=== PATIENT | male | born 1955 | race Caucasian/White ===

== ENCOUNTER 2016-12-04 19:33 | Inpatient (IN) | payer OTHER ==
[2016-12-04 21:33] VITALS: BMI 22.0
--- NOTE | 2016-12-04 22:20 | HP ---
CIWA Score - CIWA Score Nausea/Vomitin-Mild Nausea/No Vomiting Muscle Tremors: 4-Moderate,w/Arms Extend Anxiety: 4-Mod. Anxious/Guarded Agitation: 4-Moderately Restless Paroxysmal Sweats: 1-Minimal Palms Moist Orientation: 0-Oriented Tacttile Disturbances: 0-None Auditory Disturbances: 0-None Visual Disturbances: 0-None Headache: 0-None Present CIWA-Ar Total Score: 14 Admission ROS BHS - HPI Chief Complaint: withdrawal sx Allergies/Adverse Reactions: Allergies Allergy/AdvReac Type Severity Reaction Status Date / Time No Known Allergies Allergy Verified 04/01/16 19:27 History of Present Illness: 61 years old male with long history of alcohol cocaine marijuana nicotine dependence denies medical issue has schizophrenia is admitted to detox Exam Limitations: No Limitations - Ebola screening Have you traveled outside of the country in the last 21 days: No (N) Have you had contact with anyone from an Ebola affected area: No Have you been sick,other than usual withdrawal symptoms: No Do you have a fever: No - Review of Systems Constitutional: Chills, Loss of Appetite, Changes in sleep, Unintentional Wgt. Loss, Unexplained wgt Loss EENT: reports: Blurred Vision (last eye glasses), Dental Problems (upper and lower denture at home) Respiratory: reports: Productive cough (whiteish) Cardiac: reports: No Symptoms Reported GI: reports: Nausea, Poor Fluid Intake, Abdominal cramping : reports: No Symptoms Reported Musculoskeletal: reports: No Symptoms Reported Integumentary: reports: No Symptoms Reported Neuro: reports: Tremors Endocrine: reports: No Symptoms Reported Hematology: reports: No Symptoms Reported Psychiatric: reports: Judgement Intact, Anxious, Depressed Other Systems: Reviewed and Negative Patient History - Patient Medical History Hx Anemia: No Hx Asthma: No Hx Chronic Obstructive Pulmonary Disease (COPD): No Hx Cancer: No Hx Cardiac Disorders: No Hx Congestive Heart Failure: No Hx Hypertension: No Hx Hypercholesterolemia: No Hx Pacemaker: No HX Cerebrovascular Accident: No Hx Seizures: No Hx Dementia: No Hx Diabetes: No Hx Gastrointestinal Disorders: No Hx Liver Disease: No Hx Genitourinary Disorders: No Hx Sexually Transmitted Disorders: No Hx Renal Disease (ESRD): No Hx Thyroid Disease: No Hx Human Immunodeficiency Virus (HIV): No (denies) Hx Hepatitis C: No Hx Depression: No Hx Suicide Attempt: No Hx Bipolar Disorder: No Hx Schizophrenia: Yes - Patient Surgical History Past Surgical History: Yes Hx Neurologic Surgery: No Hx Cataract Extraction: No Hx Cardiac Surgery: No Hx Lung Surgery: No Hx Breast Surgery: No Hx Breast Biopsy: No Hx Abdominal Surgery: No Hx Appendectomy: No Hx Cholecystectomy: No Hx Genitourinary Surgery: No Hx Orthopedic Surgery: No Other Surgical History: removal of lipoma of right chest wall at [facility] 2010 Anesthesia Reaction: No - PPD History Previous Implant?: Yes Documented Results: Negative w/proof Implanted On Prior [facility] Admission?: Yes Date: 12/23/15 Results: 0MM PPD to be Administered?: Yes - Smoking Cessation Smoking history: Current every day smoker Have you smoked in the past 12 months: Yes Aproximately how many cigarettes per day: 20 Cigars Per Day: 0 Hx Chewing Tobacco Use: No Initiated information on smoking cessation: Yes 'Breaking Loose' booklet given: 12/04/16 - Substance & Tx. History Hx Alcohol Use: Yes Hx Substance Use: Yes Substance Use Type: Alcohol, Cocaine, Marijuana Hx Substance Use Treatment: Yes - Substances Abused Alcohol Route: Oral Frequency: Daily Amount used: 12oz 6pack beers Age of first use: 12 Date of Last Use: 12/03/16 Cocaine Route: Smoking Frequency: Daily Amount used: 200$ Age of first use: 33 Date of Last Use: 12/03/16 Marijuana/Hashish Route: Smoking Frequency: Daily Amount used: 10 joints Age of first use: 19 Date of Last Use: 12/03/16 Family Disease History - Family Disease History Family Disease History: Diabetes: Brother, Heart Disease: Mother ([place] ), [place]: Father () Admission Physical Exam S - Vital Signs Vital Signs: Vital Signs - 24 hr 12/04/16 21:32 Temperature 96.8 F L Pulse Rate 71 Respiratory 20 Rate Blood Pressure 115/71 - Physical General Appearance: Yes: Appropriately Dressed, Mild Distress, Thin, Tremorous, Irritable, Sweating, Anxious HEENTM: Yes: Hearing grossly Normal, Normal ENT Inspection, Normocephalic, Normal Voice Respiratory: Yes: Chest Non-Tender, Lungs Clear, Normal Breath Sounds, No Respiratory Distress, No Accessory Muscle Use Neck: Yes: Supple, Trachea in good position Breast: Yes: Breasts Symetrical Cardiology: Yes: Regular Rhythm, Regular Rate, S1, S2 Abdominal: Yes: Normal Bowel Sounds, Non Tender, Soft Genitourinary: Yes: Within Normal Limits Back: Yes: Normal Inspection Musculoskeletal: Yes: full range of Motion, Gait Steady Extremities: Yes: Normal Inspection, Normal Range of Motion, Non-Tender, Tremors Neurological: Yes: Alert, Motor Strength 5/5, Normal Response, Depressed Affect Integumentary: Yes: Warm Lymphatic: Yes: Within Normal Limits - Diagnostic (1) Alcohol dependence with uncomplicated withdrawal Current Visit: Yes Status: Acute (2) Cocaine dependence, uncomplicated Current Visit: Yes Status: Chronic (3) Nicotine dependence Current Visit: Yes Status: Acute (4) Schizophrenia Current Visit: Yes Status: Suspected (5) Cannabis dependence, uncomplicated Current Visit: Yes Status: Chronic (6) Weight loss Current Visit: Yes Status: Acute Cleared for Admission [facility] - Detox or Rehab [facility] Level of Care: Medically Managed Detox Regimen/Protocol: Librium S Breath Alcohol Content Breath Alcohol Content: 0 Urine Drug Screen - Results Drug Screen Negative: No Urine Drug Screen Results: THC-Marijuana, MELQUIADES-Cocaine
[2016-12-04] MEDS ORDERED: chlordiazePOXIDE HCL 25 MG CAPSULE PO PRN (22:31)
[2016-12-04] MEDS ORDERED: ACETAMINOPHEN 325 MG TABLET (FP) PO PRN (22:31)
[2016-12-04] MEDS ORDERED: MENTHOL/PHENOL 1 EACH UD MM PRN (22:31)
[2016-12-04] MEDS ORDERED: NICOTINE POLACRILEX 4 MG GUM BC PRN (22:31)
[2016-12-04] MEDS ORDERED: diphenhydrAMINE HCL 50 MG CAPSULE PO PRN (22:31)
[2016-12-04] MEDS ORDERED: MAG HYDROX/AL HYDROX/SIMETH 30 ML UNIT-DOSE CUP PO PRN (22:31)
[2016-12-04] MEDS ORDERED: MAGNESIUM HYDROX 2400MG/30ML ORAL SUSPENSION 30 ML CUP PO PRN (22:31)
[2016-12-04] MEDS ORDERED: IBUPROFEN 400 MG TABLET (FP) PO PRN (22:31)
[2016-12-04] MEDS ORDERED: MAGNESIUM CITRATE 300 ML BOTTLE PO PRN (22:31)
[2016-12-04] MEDS ORDERED: P-EPHED 60MG/TRIPROLIDI 2.5MG TABLET PO PRN (22:31)
[2016-12-04] MEDS ORDERED: guaiFENesin/D-METHORPHAN HB 10 ML UNIT-DOSE CUPS PO PRN (22:31)
[2016-12-04] MEDS ORDERED: hydrOXYzine PAMOATE 50 MG CAPSULE (FP) PO PRN (22:31)
[2016-12-04] MEDS ORDERED: LOPERAMIDE HCL 2 MG CAPSULE PO PRN (22:31)
[2016-12-04] MEDS ORDERED: chlordiazePOXIDE HCL 25 MG CAPSULE PO SCH (23:00)
[2016-12-05] MEDS ORDERED: chlordiazePOXIDE HCL 25 MG CAPSULE PO ONE (00:40)
[2016-12-05] MEDS ORDERED: chlordiazePOXIDE HCL 25 MG CAPSULE PO PRN (00:40)
[2016-12-05] MEDS ORDERED: chlordiazePOXIDE HCL 25 MG CAPSULE ONE (01:10)
[2016-12-05] MEDS: chlordiazePOXIDE HCL 25 MG CAPSULE PO SCH ×4 (06:07→22:27)
--- NOTE | 2016-12-05 09:19 | CONSULT ---
[facility] Psychiatric Consult - Data Date of interview: 12/05/16 Admission source: [facility] Identifying data: Mr Rodgers is a 61 years old male, father of 2 children, unemployed on SSI, domiciled seeking detox treatment for alcohol, cocaine and marijuana Substance Abuse History: Reports that he started drinking alcohol at age 12, consumes 4x 6pk(12oz) daily. Last drink on 12/03/16. Started smoking crack cocaine at age 33, consumes $200 worth daily. Last smoked on 12/03/16. Started smoking marijuana at age 19, consumes 10 joints daily. Last smoked on 12/03/16 Medical History: Significant for history of surgery for removal of lipoma over chest are in 2010. smokes cigarettes 1ppd Psychiatric History: Patient reports history of Paranoid Schizophrenia since the age of 19. Reports history of multiple psychiatric admissions to various institutions notably [facility] in [place]; [facility]; [facility], [facility]. Reports receiving psychiatric outpatient sevices at a clinic on and he is prescribed Cogentin 1 mg po BID, Trazdone 100 mg po HS and Haldol Dec 100 mg IM Q 4 weeks. Claims that he got his injection a few days ago. All these medications were verified by pharmacy search and scripts were filled on 11/21/16. Physical/Sexual Abuse/Trauma History: Denies history of emotional, physical or sexual abuse as well as Dv relationship Mental Status Exam - Mental Status Exam Alert and Oriented to: Time, Place, Person Cognitive Function: Fair Patient Appearance: Well Groomed Mood: Irritable Patient Behavior: Cooperative Speech Pattern: Clear Voice Loudness: Normal Thought Disorder: Present Hallucinations: Denies Suicidal Ideation: Denies Homicidal Ideation: Denies Insight/Judgement: Fair Sleep: Poorly Appetite: Good Muscle strength/Tone: Normal Gait/Station: Normal Psychiatric Findings - Problem List ([place] 1, 2,3) (1) Paranoid schizophrenia Current Visit: Yes Status: Acute (2) Alcohol dependence with uncomplicated withdrawal Current Visit: Yes Status: Acute (3) Cocaine dependence, uncomplicated Current Visit: Yes Status: Chronic (4) Cannabis dependence, uncomplicated Current Visit: Yes Status: Chronic (5) Nicotine dependence Current Visit: Yes Status: Acute - Initial Treatment Plan Initial Treatment Plan: 1) Continue Cogentin 1 mg po BID and Trazadone 100 mg po HS. 2) Continue inpatient detoxification
[2016-12-05 10:16] LABS: MCH 28.1 pg (25.7-33.7); MCHC 32.6 g/dl (32.0-35.9); MEAN CELL VOLUME 86.3 fl (80-96); MEAN PLT VOLUME 7.8 fl (7.5-11.1); PLATELET COUNT 192 K/MM3 (134-434); RDW 13.8 % (11.9-15.9); WHITE BLOOD COUNT 6.8 K/mm3 (4.0-10.0)
[2016-12-05] MEDS: PRENATAL VITAMINS W/ FOLIC ACID TABLET (FP) PO SCH (10:27)
[2016-12-05] MEDS: BENZTROPINE MESYLATE 1 MG TABLET (FP) PO SCH ×2 (10:28→22:27)
[2016-12-05] MEDS: NICOTINE 21 MG/24 HOURS TOPICAL PATCH TD SCH (10:28)
[2016-12-05 11:13] LABS: ALBUMIN 3.6 g/dl (3.4-5.0); ALK PHOS 132 U/L (45-117); ANION GAP 11 (8-16); BILIRUBIN,TOTAL 0.3 mg/dL (0.2-1.0); CALCIUM 8.8 mg/dL (8.5-10.1); CO2 26 mmol/L (21-32); COCKROFT - GAULT 70.33; GLUCOSE,RANDOM 103 mg/dL (74-106); SGOT/AST 31 U/L (15-37); SGPT/ALT 29 U/L (12-78)
--- NOTE | 2016-12-05 11:51 | PN ---
[facility] CIWA - CIWA Score Nausea/Vomitin-No Nausea/No Vomiting Muscle Tremors: 4-Moderate,w/Arms Extend Anxiety: 4-Mod. Anxious/Guarded Agitation: 4-Moderately Restless Paroxysmal Sweats: 1-Minimal Palms Moist Orientation: 0-Oriented Tacttile Disturbances: 3-Moderate Itch/Numb/Burn Auditory Disturbances: 0-None Visual Disturbances: 0-None Headache: 0-None Present CIWA-Ar Total Score: 16 S Progress Note (SOAP) Subjective: ANXIETY,SWEATS,SLIGHT TREMORS, INTERMITTENT SLEEP. Objective: 12/05/16 11:50 Vital Signs Temperature 97.0 F L 12/05/16 09:42 Pulse Rate 76 12/05/16 09:42 Respiratory Rate 16 12/05/16 09:42 Blood Pressure 103/63 12/05/16 09:42 O2 Sat by Pulse Oximetry (%) Laboratory Last Values WBC 6.8 K/mm3 (4.0-10.0) 12/05/16 07:00 RBC 4.77 M/mm3 (4.00-5.60) 12/05/16 07:00 Hgb 13.4 GM/dL (11.7-16.9) 12/05/16 07:00 Hct 41.1 % (35.4-49) 12/05/16 07:00 MCV 86.3 fl (80-96) 12/05/16 07:00 MCHC 32.6 g/dl (32.0-35.9) 12/05/16 07:00 RDW 13.8 % (11.9-15.9) 12/05/16 07:00 Plt Count 192 K/MM3 (134-434) 12/05/16 07:00 MPV 7.8 fl (7.5-11.1) 12/05/16 07:00 Sodium 140 mmol/L (136-145) 12/05/16 07:00 Potassium 3.7 mmol/L (3.5-5.1) 12/05/16 07:00 Chloride 103 mmol/L (98-107) 12/05/16 07:00 Carbon Dioxide 26 mmol/L (21-32) 12/05/16 07:00 Anion Gap 11 (8-16) 12/05/16 07:00 BUN 12 mg/dL (7-18) 12/05/16 07:00 Creatinine 1.0 mg/dL (0.7-1.3) D 12/05/16 07:00 Creat Clearance w eGFR > 60 (>60) 12/05/16 07:00 Random Glucose 103 mg/dL (74-106) 12/05/16 07:00 Calcium 8.8 mg/dL (8.5-10.1) 12/05/16 07:00 Total Bilirubin 0.3 mg/dL (0.2-1.0) D 12/05/16 07:00 AST 31 U/L (15-37) D 12/05/16 07:00 ALT 29 U/L (12-78) 12/05/16 07:00 Alkaline Phosphatase 132 U/L (45-117) H 12/05/16 07:00 Total Protein 7.0 g/dl (6.4-8.2) 12/05/16 07:00 Albumin 3.6 g/dl (3.4-5.0) 12/05/16 07:00 RPR Titer Nonreactive (NONREACTIVE) 12/05/16 07:00 Assessment: 12/05/16 11:51 WITHDRAWAL SX Plan: CONTINUE DETOX
--- NOTE | 2016-12-05 11:55 | EKG ---
Test Reason : Blood Pressure : / mmHG Vent. Rate : 065 BPM Atrial Rate : 065 BPM P-R Int : 162 ms QRS Dur : 092 ms QT Int : 404 ms P-R-T Axes : 077 072 075 degrees QTc Int : 420 ms NORMAL SINUS RHYTHM NORMAL ECG NO PREVIOUS ECGS AVAILABLE Confirmed by MARCELO LIVINGSTON, MEHDI ([id number]) on 12/05/2016 11:55:20 AM Referred By: Confirmed By:MEHDI ROBERTSON MD
[2016-12-05] MEDS: THIAMINE HCL 100 MG TABLET (FP) PO SCH (22:27)
[2016-12-05] MEDS: traZODone HCL 100 MG TABLET (FP) PO SCH (22:27)
[2016-12-05] MEDS ORDERED: chlordiazePOXIDE HCL 25 MG CAPSULE PO SCH (23:00)
[2016-12-06] MEDS: chlordiazePOXIDE HCL 25 MG CAPSULE PO SCH ×4 (06:19→22:22)
[2016-12-06] MEDS: NICOTINE 21 MG/24 HOURS TOPICAL PATCH TD SCH (10:32)
[2016-12-06] MEDS: PRENATAL VITAMINS W/ FOLIC ACID TABLET (FP) PO SCH (10:32)
[2016-12-06] MEDS: BENZTROPINE MESYLATE 1 MG TABLET (FP) PO SCH ×2 (10:32→22:22)
--- NOTE | 2016-12-06 10:36 | PN ---
[facility] CIWA - CIWA Score Nausea/Vomitin-No Nausea/No Vomiting Muscle Tremors: 4-Moderate,w/Arms Extend Anxiety: 4-Mod. Anxious/Guarded Agitation: 4-Moderately Restless Paroxysmal Sweats: 1-Minimal Palms Moist Orientation: 0-Oriented Tacttile Disturbances: 0-None Auditory Disturbances: 0-None Visual Disturbances: 0-None Headache: 0-None Present CIWA-Ar Total Score: 13 S Progress Note (SOAP) Subjective: ANXIETY,SWEATS,TREMORS,INTERMITTENT SLEEP. Objective: 12/06/16 10:36 Vital Signs Temperature 96.2 F L 12/06/16 10:23 Pulse Rate 66 12/06/16 10:23 Respiratory Rate 18 12/06/16 10:23 Blood Pressure 101/64 12/06/16 10:23 O2 Sat by Pulse Oximetry (%) Laboratory Last Values WBC 6.8 K/mm3 (4.0-10.0) 12/05/16 07:00 RBC 4.77 M/mm3 (4.00-5.60) 12/05/16 07:00 Hgb 13.4 GM/dL (11.7-16.9) 12/05/16 07:00 Hct 41.1 % (35.4-49) 12/05/16 07:00 MCV 86.3 fl (80-96) 12/05/16 07:00 MCHC 32.6 g/dl (32.0-35.9) 12/05/16 07:00 RDW 13.8 % (11.9-15.9) 12/05/16 07:00 Plt Count 192 K/MM3 (134-434) 12/05/16 07:00 MPV 7.8 fl (7.5-11.1) 12/05/16 07:00 Sodium 140 mmol/L (136-145) 12/05/16 07:00 Potassium 3.7 mmol/L (3.5-5.1) 12/05/16 07:00 Chloride 103 mmol/L (98-107) 12/05/16 07:00 Carbon Dioxide 26 mmol/L (21-32) 12/05/16 07:00 Anion Gap 11 (8-16) 12/05/16 07:00 BUN 12 mg/dL (7-18) 12/05/16 07:00 Creatinine 1.0 mg/dL (0.7-1.3) D 12/05/16 07:00 Creat Clearance w eGFR > 60 (>60) 12/05/16 07:00 Random Glucose 103 mg/dL (74-106) 12/05/16 07:00 Calcium 8.8 mg/dL (8.5-10.1) 12/05/16 07:00 Total Bilirubin 0.3 mg/dL (0.2-1.0) D 12/05/16 07:00 AST 31 U/L (15-37) D 12/05/16 07:00 ALT 29 U/L (12-78) 12/05/16 07:00 Alkaline Phosphatase 132 U/L (45-117) H 12/05/16 07:00 Total Protein 7.0 g/dl (6.4-8.2) 12/05/16 07:00 Albumin 3.6 g/dl (3.4-5.0) 12/05/16 07:00 RPR Titer Nonreactive (NONREACTIVE) 12/05/16 07:00 Assessment: 12/06/16 10:36 WITHDRAWAL SX Plan: CONTINUE DETOX
[2016-12-06] MEDS: traZODone HCL 100 MG TABLET (FP) PO SCH (22:22)
[2016-12-06] MEDS: THIAMINE HCL 100 MG TABLET (FP) PO SCH (22:22)
[2016-12-06] MEDS ORDERED: chlordiazePOXIDE 5 MG CAPSULE PO SCH (23:00)
[2016-12-07] MEDS: chlordiazePOXIDE 5 MG CAPSULE PO SCH ×4 (06:06→22:21)
[2016-12-07] MEDS: PRENATAL VITAMINS W/ FOLIC ACID TABLET (FP) PO SCH (10:17)
[2016-12-07] MEDS: BENZTROPINE MESYLATE 1 MG TABLET (FP) PO SCH ×2 (10:17→22:21)
[2016-12-07] MEDS: NICOTINE 21 MG/24 HOURS TOPICAL PATCH TD SCH (10:18)
--- NOTE | 2016-12-07 11:14 | PN ---
BHS Progress Note (SOAP) Subjective: FATIGUE, CHILLS, ANXIETY. Objective: 12/07/16 11:14 Vital Signs Temperature 96.2 F L 12/07/16 10:21 Pulse Rate 66 12/07/16 10:21 Respiratory Rate 20 12/07/16 10:21 Blood Pressure 96/63 12/07/16 10:21 O2 Sat by Pulse Oximetry (%) Assessment: 12/07/16 11:14 WITHDRAWAL SX Plan: CONTINUE DETOX INCREASE PO FLUIDS.
[2016-12-07] MEDS: traZODone HCL 100 MG TABLET (FP) PO SCH (22:20)
[2016-12-07] MEDS: THIAMINE HCL 100 MG TABLET (FP) PO SCH (22:21)
[2016-12-07] MEDS ORDERED: chlordiazePOXIDE HCL 10 MG CAPSULE PO SCH (23:00)
[2016-12-08] MEDS ORDERED: chlordiazePOXIDE HCL 10 MG CAPSULE PO SCH (05:00)
[2016-12-08 06:28] VITALS: BP 136/87; PULSE 60; TEMP 95.7
[2016-12-08 09:51] LABS: URINE APPEARANCE CLEAR; URINE BILIRUBIN NEGATIVE (NEGATIVE); URINE BLOOD NEGATIVE (NEGATIVE); URINE COLOR COLORLESS; URINE GLUCOSE (UA) NEGATIVE (NEGATIVE); URINE KETONE NEGATIVE (NEGATIVE); URINE LEUK ESTERASE NEGATIVE (NEGATIVE); URINE NITRITE NEGATIVE (NEGATIVE); URINE PROTEIN NEGATIVE (NEGATIVE); URINE UROBILINOGEN NEGATIVE E.U./dl (0.2-1.0)
--- NOTE | 2016-12-08 10:36 | DS ---
[facility] Detox Discharge Summary Admission Date: 12/04/16 Discharge Date: 12/08/16 - History Present History: Alcohol Dependence, Cannabis Dependence, Cocaine Dependence Pertinent Past History: Schizophrenia - Physical Exam Results Vital Signs: Vital Signs Temperature 95.7 F L 12/08/16 06:27 Pulse Rate 60 12/08/16 06:27 Respiratory Rate 18 12/08/16 06:27 Blood Pressure 136/87 12/08/16 06:27 O2 Sat by Pulse Oximetry (%) Pertinent Admission Physical Exam Findings: Withdrawal sx. Laboratory Last Values WBC 6.8 K/mm3 (4.0-10.0) 12/05/16 07:00 RBC 4.77 M/mm3 (4.00-5.60) 12/05/16 07:00 Hgb 13.4 GM/dL (11.7-16.9) 12/05/16 07:00 Hct 41.1 % (35.4-49) 12/05/16 07:00 MCV 86.3 fl (80-96) 12/05/16 07:00 MCHC 32.6 g/dl (32.0-35.9) 12/05/16 07:00 RDW 13.8 % (11.9-15.9) 12/05/16 07:00 Plt Count 192 K/MM3 (134-434) 12/05/16 07:00 MPV 7.8 fl (7.5-11.1) 12/05/16 07:00 Sodium 140 mmol/L (136-145) 12/05/16 07:00 Potassium 3.7 mmol/L (3.5-5.1) 12/05/16 07:00 Chloride 103 mmol/L (98-107) 12/05/16 07:00 Carbon Dioxide 26 mmol/L (21-32) 12/05/16 07:00 Anion Gap 11 (8-16) 12/05/16 07:00 BUN 12 mg/dL (7-18) 12/05/16 07:00 Creatinine 1.0 mg/dL (0.7-1.3) D 12/05/16 07:00 Creat Clearance w eGFR > 60 (>60) 12/05/16 07:00 Random Glucose 103 mg/dL (74-106) 12/05/16 07:00 Calcium 8.8 mg/dL (8.5-10.1) 12/05/16 07:00 Total Bilirubin 0.3 mg/dL (0.2-1.0) D 12/05/16 07:00 AST 31 U/L (15-37) D 12/05/16 07:00 ALT 29 U/L (12-78) 12/05/16 07:00 Alkaline Phosphatase 132 U/L (45-117) H 12/05/16 07:00 Total Protein 7.0 g/dl (6.4-8.2) 12/05/16 07:00 Albumin 3.6 g/dl (3.4-5.0) 12/05/16 07:00 Urine Color Colorless 12/08/16 08:00 Urine Appearance Clear 12/08/16 08:00 Urine pH 6.0 (5.0-8.0) 12/08/16 08:00 Urine Protein Negative (NEGATIVE) 12/08/16 08:00 Urine Glucose (UA) Negative (NEGATIVE) 12/08/16 08:00 Urine Ketones Negative (NEGATIVE) 12/08/16 08:00 Urine Blood Negative (NEGATIVE) 12/08/16 08:00 Urine Nitrite Negative (NEGATIVE) 12/08/16 08:00 Urine Bilirubin Negative (NEGATIVE) 12/08/16 08:00 Urine Urobilinogen Negative E.U./dl (0.2-1.0) 12/08/16 08:00 Ur Leukocyte Esterase Negative (NEGATIVE) 12/08/16 08:00 RPR Titer Nonreactive (NONREACTIVE) 12/05/16 07:00 labs noted - Treatment Hospital Course: Detox Protocol Followed, Detoxed Safely, Responded well, Discharged Condition Good, Rehab Referral Accepted Patient has Accepted a Rehab Referral to: [facility] - Medication Discharge Medications: Ambulatory Orders Benztropine Mesylate 1 mg PO BID 10/10/15 Bupropion HCl [Bupropion Xl] 300 mg PO DAILY 10/10/15 Risperidone 2 mg PO HS 10/10/15 Diphenhydramine [Benadryl -] 50 mg PO HS PRN 12/21/15 Naltrexone HCl [Revia -] 50 mg PO DAILY 12/21/15 Benztropine Mesylate [Cogentin -] 0.5 mg PO BID #30 tablet 01/31/16 Benztropine Mesylate [Cogentin -] 1 mg PO DAILY #30 tablet 04/05/16 Bupropion HCl [Wellbutrin Xl -] 150 mg PO DAILY #30 tab.sr.24h 04/05/16 Risperidone [Risperdal] 1 mg PO HS #30 tablet 04/05/16 - Diagnosis (1) Alcohol dependence with uncomplicated withdrawal Status: Acute (2) Nicotine dependence Status: Acute (3) Paranoid schizophrenia Status: Acute (4) Cannabis dependence, uncomplicated Status: Chronic (5) Cocaine dependence, uncomplicated Status: Chronic - AMA Did Patient Leave Against Medical Advice: No
== END 2016-12-08 08:58 | disposition home or self-care (01) | DRG 774 ==
LOC: YASAS 19:33 → Y3N 23:07
PROVIDERS: ADMIT Internal Medicine; ATTEND Internal Medicine
PROC: HZ2ZZZZ Detoxification Services for Substance Abuse Treatment (ICD-10-PCS; principal; 2016-12-04)
DX: F10.230 Alcohol dependence with withdrawal, uncomplicated (principal); F14.20 Cocaine dependence, uncomplicated; F12.20 Cannabis dependence, uncomplicated; F17.210 Nicotine dependence, cigarettes, uncomplicated; F20.0 Paranoid schizophrenia; Z87.898 Personal history of other specified conditions
CPT/HCPCS: 36415; 80053; 81003; 85027; 86593; 93005; 93010

== ENCOUNTER 2018-03-20 08:49 | Inpatient (IN) | payer OTHER ==
[2018-03-20 09:51] VITALS: BMI 22.9
--- NOTE | 2018-03-20 10:36 | HP ---
CIWA Score - CIWA Score Nausea/Vomitin-No Nausea/No Vomiting Muscle Tremors: 4-Moderate,w/Arms Extend Anxiety: 0-No Anxiety, at Ease Agitation: 0-Normal Activity Paroxysmal Sweats: No Perspiration Orientation: 0-Oriented Tacttile Disturbances: 0-None Auditory Disturbances: 0-None Visual Disturbances: 0-None Headache: 0-None Present CIWA-Ar Total Score: 4 Admission ROS BHS - HPI Chief Complaint: pt here requesting detox from etoh use , reports 12 beers/day x since age 12 , reports tremors if not drinking , denies seizures, blackouts or falls , starts drinking around 8 am , currently reporting tremors and fatigue, latest use last night andrés 0.000 crack cocaine : 250 $/day . tobacco : 1ppd , requesting nrt w/ patch pmhx : denies pshx : cyst on anterior chest psych : schizophrenia , did not bring meds allergies : Denies Allergies/Adverse Reactions: Allergies Allergy/AdvReac Type Severity Reaction Status Date / Time No Known Allergies Allergy Verified 03/20/18 10:05 - Ebola screening Have you traveled outside of the country in the last 21 days: No Have you had contact with anyone from an Ebola affected area: No Have you been sick,other than usual withdrawal symptoms: No Do you have a fever: No - Review of Systems Constitutional: See HPI EENT: reports: Other (no dentures, no teeth) Respiratory: reports: No Symptoms reported Cardiac: reports: No Symptoms Reported GI: reports: No Symptoms Reported : reports: No Symptoms Reported Musculoskeletal: reports: Joint Swelling, Joint Stiffness, Other (right hand 3rd finger deformity after baseball injury " a long time ago ") Integumentary: reports: No Symptoms Reported Neuro: reports: Tremors Endocrine: reports: No Symptoms Reported Hematology: reports: No Symptoms Reported Psychiatric: reports: Orientated x3, other (reports SAD) Patient History - Patient Medical History Hx Anemia: No Hx Asthma: No Hx Chronic Obstructive Pulmonary Disease (COPD): No Hx Cancer: No Hx Cardiac Disorders: No Hx Congestive Heart Failure: No Hx Hypertension: No Hx Hypercholesterolemia: No Hx Pacemaker: No HX Cerebrovascular Accident: No Hx Seizures: No Hx Dementia: No Hx Diabetes: No Hx Gastrointestinal Disorders: No Hx Liver Disease: No Hx Genitourinary Disorders: No Hx Sexually Transmitted Disorders: No Hx Renal Disease (ESRD): No Hx Thyroid Disease: No Hx Human Immunodeficiency Virus (HIV): No (denies) Hx Hepatitis C: No Hx Depression: No Hx Suicide Attempt: No Hx Bipolar Disorder: No Hx Schizophrenia: Yes - Patient Surgical History Past Surgical History: Yes Hx Neurologic Surgery: No Hx Cataract Extraction: No Hx Cardiac Surgery: No Hx Lung Surgery: No Hx Breast Surgery: No Hx Breast Biopsy: No Hx Abdominal Surgery: No Hx Appendectomy: No Hx Cholecystectomy: No Hx Genitourinary Surgery: No Hx Section: No Hx Orthopedic Surgery: No Other Surgical History: removal of lipoma of right chest wall at [place] [id number] Anesthesia Reaction: No - PPD History Previous Implant?: Yes Documented Results: Negative w/proof Implanted On Prior [facility] Admission?: Yes Date: 12/07/16 Results: 0 mm - Smoking Cessation Smoking history: Current every day smoker Have you smoked in the past 12 months: Yes Aproximately how many cigarettes per day: 20 Cigars Per Day: 0 Hx Chewing Tobacco Use: No Initiated information on smoking cessation: No - Substances Abused Crack Route: Smoking Frequency: Daily Amount used: $40-50 Age of first use: 33 Date of Last Use: 03/19/18 Alcohol-beer Route: Oral Frequency: Daily Amount used: 1-2 6 pks. Age of first use: 12 Date of Last Use: 03/19/18 Family Disease History - Family Disease History Family Disease History: Diabetes: Brother, Heart Disease: Mother ([place] ), [place]: Father () Admission Physical Exam BHS - Vital Signs Vital Signs: Vital Signs - 24 hr 03/20/18 09:49 Temperature 96.9 F L Pulse Rate 70 Respiratory 17 Rate Blood Pressure 130/76 - Physical General Appearance: Yes: No Apparent Distress, Nourished, Appropriately Dressed , Mild Distress HEENTM: Yes: EOMI, Hearing grossly Normal, Normal ENT Inspection, Normocephalic , Normal Voice, KASANDRA, Pharynx Normal, Other (edentulous) Respiratory: Yes: Within Normal Limits, Chest Non-Tender, Lungs Clear, Normal Breath Sounds, No Respiratory Distress, No Accessory Muscle Use Neck: Yes: Within Normal Limits, No masses,lesions,Nodules, Trachea in good position Cardiology: Yes: Within Normal Limits, Regular Rhythm, Regular Rate Abdominal: Yes: Within Normal Limits, Normal Bowel Sounds, Non Tender, Flat, Soft Genitourinary: Yes: Within Normal Limits Back: Yes: Within Normal Limits, Normal Inspection Musculoskeletal: Yes: full range of Motion, Gait Steady, Pelvis Stable, Joint Stiffness, Other (right 3rd finger deformity s/p old injury) Extremities: Yes: Normal Capillary Refill, Normal Inspection, Normal Range of Motion, Non-Tender, Tremors Neurological: Yes: Within Normal Limits, Fully Oriented, Alert, Motor Strength 5 /5, Normal Mood/Affect, Normal Response Integumentary: Yes: Within Normal Limits, Normal Color, Dry, Warm BHS Breath Alcohol Content Breath Alcohol Content: 0 Urine Drug Screen - Results Drug Screen Negative: No Urine Drug Screen Results: MELQUIADES-Cocaine
[2018-03-20] MEDS ORDERED: IBUPROFEN 400 MG TABLET (FP) PO PRN (10:39)
[2018-03-20] MEDS ORDERED: MAGNESIUM CITRATE 300 ML BOTTLE PO PRN (10:39)
[2018-03-20] MEDS ORDERED: MAGNESIUM HYDROX 2400MG/30ML ORAL SUSPENSION 30 ML CUP PO PRN (10:39)
[2018-03-20] MEDS ORDERED: MAG HYDROX/AL HYDROX/SIMETH 30 ML UNIT-DOSE CUP PO PRN (10:39)
[2018-03-20] MEDS ORDERED: ACETAMINOPHEN 325 MG TABLET (FP) PO PRN (10:39)
--- NOTE | 2018-03-20 13:35 | EKG ---
Test Reason : Blood Pressure : / mmHG Vent. Rate : 062 BPM Atrial Rate : 062 BPM P-R Int : 146 ms QRS Dur : 086 ms QT Int : 422 ms P-R-T Axes : 064 064 067 degrees QTc Int : 428 ms NORMAL SINUS RHYTHM POSSIBLE LEFT ATRIAL ENLARGEMENT BORDERLINE ECG WHEN COMPARED WITH ECG OF 05-DEC-2016 00:14, NO SIGNIFICANT CHANGE WAS FOUND Confirmed by LINDA MAYORGA MD ([id number]) on 03/20/2018 1:35:22 PM Referred By: Confirmed By:LINDA MAYORGA MD
[2018-03-20] MEDS: chlordiazePOXIDE HCL 25 MG CAPSULE PO SCH ×3 (13:38→22:22)
[2018-03-20 17:35] LABS: URINE APPEARANCE SLCLOUDY; URINE BILIRUBIN NEGATIVE (<2.0 mg/dL); URINE COLOR YELLOW; URINE GLUCOSE (UA) NEGATIVE (NEGATIVE); URINE KETONE NEGATIVE (NEGATIVE); URINE LEUK ESTERASE NEGATIVE (NEGATIVE); URINE NITRITE NEGATIVE (NEGATIVE); URINE PROTEIN NEGATIVE (NEGATIVE); URINE UROBILINOGEN NEGATIVE mg/dL (0.2-1.0)
--- NOTE | 2018-03-20 17:53 | CONSULT ---
[facility] Psychiatric Consult - Data Date of interview: 03/20/18 Admission source: [facility] Identifying data: This is one of multiple admissions to [facility] for this 62 y/ o male self-referred for detoxification treatment (cocaine,alcohol dependence).Admitted to [address] [place] [address].Patient is ,a father of two,domiciled, unemployed and supported on SSI benefits. Substance Abuse History: Smoking history: Current every day smoker. Have you smoked in the past 12 months: Yes. Aproximately how many cigarettes per day: 20. Cigars Per Day: 0. Hx Chewing Tobacco Use: No. Initiated information on smoking cessation: No. - Substances Abused. Crack. Route: Smoking. Frequency: Daily. Amount used: $40-50. Age of first use: 33. Date of Last Use : 03/19/18. Alcohol-beer. Route: Oral. Frequency: Daily. Amount used: 1- 2 6 pks. Age of first use: 12. Date of Last Use: 03/19/18 Medical History: Patient endorses good general health.Noted history of surgical excision of lipoma (chest wall). Psychiatric History: Patient is a good historian.No significant changes in his psychiatric profile.Diagnosed with paranoid schizophrenia.Presents with a history of multiple psychiatric hospitalizations ([facility]).Mr Rodgers reports maintenance on a regimen of haloperidol decanoate 100 mg IM every four weeks (last injection dispensed on 04/18 as per self-report).Followed at [facility] in the [place].No reported history of suicide attempts. Physical/Sexual Abuse/Trauma History: Patient denies. Additional Comment: Urine Drug Screen Results: MELQUIADES-Cocaine.Noted. Mental Status Exam - Mental Status Exam Alert and Oriented to: Time, Place, Person Cognitive Function: Good Patient Appearance: Well Groomed Mood: Withdrawn, Hopeful Affect: Normal Range Patient Behavior: Fatigued, Appropriate, Cooperative Speech Pattern: Clear Voice Loudness: Normal Thought Process: Goal Oriented Thought Disorder: Not Present Hallucinations: Denies Suicidal Ideation: Denies Homicidal Ideation: Denies Insight/Judgement: Poor Sleep: Well Appetite: Good Muscle strength/Tone: Normal Gait/Station: Normal Psychiatric Findings - Problem List ([place] 1, 2,3) (1) Alcohol dependence with uncomplicated withdrawal Current Visit: Yes Status: Acute (2) Cocaine dependence, uncomplicated Current Visit: Yes Status: Acute (3) Nicotine dependence Current Visit: Yes Status: Acute (4) Paranoid schizophrenia Current Visit: Yes Status: Chronic - Initial Treatment Plan Initial Treatment Plan: Psychoeducation and support.Sleep hygiene.Detoxification in progress.Medications verified via contact with pharmacist at [facility] # [id number] ([phone]).Refills for haldol decanoate 100 mg IM # 1 dose + haldol 10 mg /day # 30 tablets were picked up on 03/06/18.Ordered : haldol 5 mg po daily.Side effects/benefits discussed with the patient.Mr Rodgers is in agreement with this plan of care.Observation.
[2018-03-20] MEDS ORDERED: MELATONIN 5 MG TABLETS PO PRN (22:00)
[2018-03-20] MEDS: THIAMINE HCL 100 MG TABLET (FP) PO SCH (22:22)
[2018-03-21] MEDS: chlordiazePOXIDE HCL 25 MG CAPSULE PO SCH ×4 (05:15→22:30)
[2018-03-21 10:19] LABS: HEMATOCRIT 43.2 % (35.4-49); HEMOGLOBIN 13.8 GM/dL (11.7-16.9); MCH 28.1 pg (25.7-33.7); MEAN CELL VOLUME 87.9 fl (80-96); MEAN PLT VOLUME 8.4 fl (7.5-11.1); PLATELET COUNT 186 K/MM3 (134-434); RBC 4.92 M/mm3 (4.00-5.60); RDW 14.1 % (11.9-15.9); WHITE BLOOD COUNT 6.4 K/mm3 (4.0-10.0)
[2018-03-21] MEDS: PRENATAL VITAMINS W/ FOLIC ACID TABLET (FP) PO SCH (10:27)
[2018-03-21] MEDS: HALOPERIDOL 5 MG TABLET (FP) PO SCH (10:27)
[2018-03-21] MEDS: NICOTINE 7 MG/24 HOURS TOPICAL PATCH TD SCH (10:28)
[2018-03-21] MEDS ORDERED: FLU VACCINE QUAD 60 MCG/0.5 ML (MDV 18-19) IM ONE (12:00)
[2018-03-21 12:26] LABS: ALBUMIN 4.1 g/dl (3.4-5.0); ALK PHOS 151 U/L (45-117); ANION GAP 6 MMOL/L (8-16); BILIRUBIN,TOTAL 0.2 mg/dL (0.2-1); BLOOD UREA NITROGEN 17 mg/dL (7-18); CHLORIDE 101 mmol/L (98-107); CO2 27 mmol/L (21-32); CREATININE 0.9 mg/dL (0.55-1.3); GLUCOSE,RANDOM 94 mg/dL (74-106); POTASSIUM 4.9 mmol/L (3.5-5.1); SGOT/AST 33 U/L (15-37); SGPT/ALT 34 U/L (13-61); SODIUM 135 mmol/L (136-145); TOT PROT 7.9 g/dl (6.4-8.2)
--- NOTE | 2018-03-21 13:05 | PN ---
S CIWA - CIWA Score Nausea/Vomitin-No Nausea/No Vomiting Muscle Tremors: 3 Anxiety: 0-No Anxiety, at Ease Agitation: 0-Normal Activity Paroxysmal Sweats: No Perspiration Orientation: 0-Oriented Tacttile Disturbances: 0-None Auditory Disturbances: 0-None Visual Disturbances: 0-None Headache: 0-None Present CIWA-Ar Total Score: 3 BHS Progress Note (SOAP) Subjective: PATIENT REPORTS TREMORS BUT OTHERWISE STATES HE FEELS OK. DENIES CP, SOB, HEADACHE, N/V/D. Laboratory Tests 03/20/18 03/21/18 03/21/18 16:08 06:00 06:00 WBC 6.4 RBC 4.92 Hgb 13.8 Hct 43.2 MCV 87.9 MCH 28.1 MCHC 32.0 RDW 14.1 Plt Count 186 MPV 8.4 Sodium 135 L Potassium 4.9 Chloride 101 Carbon Dioxide 27 Anion Gap 6 L BUN 17 Creatinine 0.9 Creat Clearance w eGFR > 60 Random Glucose 94 Calcium 9.0 Total Bilirubin 0.2 AST 33 ALT 34 Alkaline Phosphatase 151 H Total Protein 7.9 Albumin 4.1 Urine Color Yellow Urine Appearance Slcloudy Urine pH 5.0 Ur Specific [place] 1.017 Urine Protein Negative Urine Glucose (UA) Negative Urine Ketones Negative Urine Blood Negative Urine Nitrite Negative Urine Bilirubin Negative Urine Urobilinogen Negative Ur Leukocyte Esterase Negative RPR Titer 03/21/18 06:00 WBC RBC Hgb Hct MCV MCH MCHC RDW Plt Count MPV Sodium Potassium Chloride Carbon Dioxide Anion Gap BUN Creatinine Creat Clearance w eGFR Random Glucose Calcium Total Bilirubin AST ALT Alkaline Phosphatase Total Protein Albumin Urine Color Urine Appearance Urine pH Ur Specific [place] Urine Protein Urine Glucose (UA) Urine Ketones Urine Blood Urine Nitrite Urine Bilirubin Urine Urobilinogen Ur Leukocyte Esterase RPR Titer Nonreactive Vital Signs Temperature 96.6 F L 03/21/18 09:12 Pulse Rate 75 03/21/18 09:12 Respiratory Rate 18 03/21/18 09:12 Blood Pressure 109/66 03/21/18 09:12 O2 Sat by Pulse Oximetry (%) OBJ: ALERT AND ORIENTED SKIN WARM AND DRY CAR SIS2 REPS CTA BL EXT: +_TREMORS, NO EDEMA Objective: 03/21/18 13:04 Laboratory Tests 03/20/18 03/21/18 03/21/18 16:08 06:00 06:00 WBC 6.4 RBC 4.92 Hgb 13.8 Hct 43.2 MCV 87.9 MCH 28.1 MCHC 32.0 RDW 14.1 Plt Count 186 MPV 8.4 Sodium 135 L Potassium 4.9 Chloride 101 Carbon Dioxide 27 Anion Gap 6 L BUN 17 Creatinine 0.9 Creat Clearance w eGFR > 60 Random Glucose 94 Calcium 9.0 Total Bilirubin 0.2 AST 33 ALT 34 Alkaline Phosphatase 151 H Total Protein 7.9 Albumin 4.1 Urine Color Yellow Urine Appearance Slcloudy Urine pH 5.0 Ur Specific [place] 1.017 Urine Protein Negative Urine Glucose (UA) Negative Urine Ketones Negative Urine Blood Negative Urine Nitrite Negative Urine Bilirubin Negative Urine Urobilinogen Negative Ur Leukocyte Esterase Negative RPR Titer 03/21/18 06:00 WBC RBC Hgb Hct MCV MCH MCHC RDW Plt Count MPV Sodium Potassium Chloride Carbon Dioxide Anion Gap BUN Creatinine Creat Clearance w eGFR Random Glucose Calcium Total Bilirubin AST ALT Alkaline Phosphatase Total Protein Albumin Urine Color Urine Appearance Urine pH Ur Specific [place] Urine Protein Urine Glucose (UA) Urine Ketones Urine Blood Urine Nitrite Urine Bilirubin Urine Urobilinogen Ur Leukocyte Esterase RPR Titer Nonreactive Vital Signs Temperature 96.6 F L 03/21/18 09:12 Pulse Rate 75 03/21/18 09:12 Respiratory Rate 18 03/21/18 09:12 Blood Pressure 109/66 03/21/18 09:12 O2 Sat by Pulse Oximetry (%) OBJ: ALERT AND ORIENTED SKIN WARM AND DRY CAR SIS2 REPS CTA BL EXT: +_TREMORS, NO EDEMA Assessment: 03/21/18 13:04 WITHDRAWAL SYNDROME Plan: CONTINUE DETOX PER PROTOCOL ENCOURAGE ORAL FLUIDS CONTINUE TO MONITOR CLINICALLY.
[2018-03-21] MEDS: MENTHOL/PHENOL 1 EACH UD MM PRN (15:15)
--- NOTE | 2018-03-21 18:04 | PN ---
[facility] CIWA - CIWA Score Nausea/Vomitin-No Nausea/No Vomiting Muscle Tremors: 4-Moderate,w/Arms Extend Anxiety: 1-Mildly Anxious Agitation: 1-Slight > Activity Paroxysmal Sweats: No Perspiration Orientation: 0-Oriented Tacttile Disturbances: 0-None Auditory Disturbances: 0-None Visual Disturbances: 0-None Headache: 0-None Present (for 03/20/18 addendum) CIWA-Ar Total Score: 6
[2018-03-21] MEDS: THIAMINE HCL 100 MG TABLET (FP) PO SCH (22:30)
[2018-03-22] MEDS: chlordiazePOXIDE HCL 25 MG CAPSULE PO SCH (05:18)
[2018-03-22] MEDS: PRENATAL VITAMINS W/ FOLIC ACID TABLET (FP) PO SCH (10:15)
[2018-03-22] MEDS: chlordiazePOXIDE 5 MG CAPSULE PO SCH ×3 (10:15→22:16)
[2018-03-22] MEDS: HALOPERIDOL 5 MG TABLET (FP) PO SCH (10:15)
[2018-03-22] MEDS: NICOTINE 7 MG/24 HOURS TOPICAL PATCH TD SCH (10:16)
--- NOTE | 2018-03-22 11:03 | PN ---
BHS Progress Note (SOAP) Subjective: PT IS RESTING WELL IN BED AT ROUNDS. REPORTS DETOX TAPER PROCEEDING WELL. Objective: 03/22/18 11:02 Vital Signs 03/22/18 03/22/18 03/22/18 03:30 06:10 09:49 Temperature 97 F L 96.7 F L Pulse Rate 64 73 Respiratory 18 16 18 Rate Blood Pressure 106/62 112/68 Laboratory Tests 03/20/18 03/21/18 03/21/18 16:08 06:00 06:00 WBC 6.4 RBC 4.92 Hgb 13.8 Hct 43.2 MCV 87.9 MCH 28.1 MCHC 32.0 RDW 14.1 Plt Count 186 MPV 8.4 Sodium 135 L Potassium 4.9 Chloride 101 Carbon Dioxide 27 Anion Gap 6 L BUN 17 Creatinine 0.9 Creat Clearance w eGFR > 60 Random Glucose 94 Calcium 9.0 Total Bilirubin 0.2 AST 33 ALT 34 Alkaline Phosphatase 151 H Total Protein 7.9 Albumin 4.1 Urine Color Yellow Urine Appearance Slcloudy Urine pH 5.0 Ur Specific [place] 1.017 Urine Protein Negative Urine Glucose (UA) Negative Urine Ketones Negative Urine Blood Negative Urine Nitrite Negative Urine Bilirubin Negative Urine Urobilinogen Negative Ur Leukocyte Esterase Negative RPR Titer 03/21/18 06:00 WBC RBC Hgb Hct MCV MCH MCHC RDW Plt Count MPV Sodium Potassium Chloride Carbon Dioxide Anion Gap BUN Creatinine Creat Clearance w eGFR Random Glucose Calcium Total Bilirubin AST ALT Alkaline Phosphatase Total Protein Albumin Urine Color Urine Appearance Urine pH Ur Specific [place] Urine Protein Urine Glucose (UA) Urine Ketones Urine Blood Urine Nitrite Urine Bilirubin Urine Urobilinogen Ur Leukocyte Esterase RPR Titer Nonreactive Assessment: 03/22/18 11:03 SLIGHT WITHDRAWAL SX Plan: CONTINUE DETOX
[2018-03-22] MEDS: THIAMINE HCL 100 MG TABLET (FP) PO SCH (22:15)
[2018-03-23] MEDS: chlordiazePOXIDE 5 MG CAPSULE PO SCH (05:07)
--- NOTE | 2018-03-23 10:15 | PN ---
S Progress Note (SOAP) Subjective: Sweat Objective: 03/23/18 10:14 A & O x 3 In bed anxious about discharge Vital Signs Temperature 96.4 F L 03/23/18 09:05 Pulse Rate 79 03/23/18 09:05 Respiratory Rate 18 03/23/18 09:05 Blood Pressure 111/65 03/23/18 09:05 O2 Sat by Pulse Oximetry (%) Assessment: 03/23/18 10:15 withdrawal sx Detox proceeding well Plan: for discharge in a.m
[2018-03-23] MEDS: PRENATAL VITAMINS W/ FOLIC ACID TABLET (FP) PO SCH (10:20)
[2018-03-23] MEDS: chlordiazePOXIDE HCL 10 MG CAPSULE PO SCH ×3 (10:20→22:08)
[2018-03-23] MEDS: HALOPERIDOL 5 MG TABLET (FP) PO SCH (10:20)
[2018-03-23] MEDS: NICOTINE 7 MG/24 HOURS TOPICAL PATCH TD SCH (10:21)
[2018-03-23] MEDS: MENTHOL/PHENOL 1 EACH UD MM PRN (12:37)
[2018-03-23] MEDS: THIAMINE HCL 100 MG TABLET (FP) PO SCH (22:08)
[2018-03-24] MEDS: chlordiazePOXIDE HCL 10 MG CAPSULE PO SCH (05:46)
[2018-03-24 06:18] VITALS: BP 103/70; PULSE 60; TEMP 96.6
--- NOTE | 2018-03-24 11:03 | DS ---
[facility] Detox Discharge Summary Admission Date: 03/20/18 Discharge Date: 03/24/18 - History Present History: Alcohol Dependence, Cocaine Dependence Pertinent Past History: Denies - Physical Exam Results Vital Signs: Vital Signs Temperature 96.6 F L 03/24/18 06:17 Pulse Rate 60 03/24/18 06:17 Respiratory Rate 18 03/24/18 06:17 Blood Pressure 103/70 03/24/18 06:17 O2 Sat by Pulse Oximetry (%) Pertinent Admission Physical Exam Findings: Withdrawal symptoms Laboratory Tests 03/20/18 03/21/18 03/21/18 16:08 06:00 06:00 WBC 6.4 RBC 4.92 Hgb 13.8 Hct 43.2 MCV 87.9 MCH 28.1 MCHC 32.0 RDW 14.1 Plt Count 186 MPV 8.4 Sodium 135 L Potassium 4.9 Chloride 101 Carbon Dioxide 27 Anion Gap 6 L BUN 17 Creatinine 0.9 Creat Clearance w eGFR > 60 Random Glucose 94 Calcium 9.0 Total Bilirubin 0.2 AST 33 ALT 34 Alkaline Phosphatase 151 H Total Protein 7.9 Albumin 4.1 Urine Color Yellow Urine Appearance Slcloudy Urine pH 5.0 Ur Specific [place] 1.017 Urine Protein Negative Urine Glucose (UA) Negative Urine Ketones Negative Urine Blood Negative Urine Nitrite Negative Urine Bilirubin Negative Urine Urobilinogen Negative Ur Leukocyte Esterase Negative RPR Titer 03/21/18 06:00 WBC RBC Hgb Hct MCV MCH MCHC RDW Plt Count MPV Sodium Potassium Chloride Carbon Dioxide Anion Gap BUN Creatinine Creat Clearance w eGFR Random Glucose Calcium Total Bilirubin AST ALT Alkaline Phosphatase Total Protein Albumin Urine Color Urine Appearance Urine pH Ur Specific [place] Urine Protein Urine Glucose (UA) Urine Ketones Urine Blood Urine Nitrite Urine Bilirubin Urine Urobilinogen Ur Leukocyte Esterase RPR Titer Nonreactive Labs reviewed - Treatment Hospital Course: Detox Protocol Followed, Detoxed Safely, Responded well, Discharged Condition Good - Medication Discharge Medications: Ambulatory Orders Haloperidol Decanoate [Haldol Decanoate 100] 100 mg IM MONTHLY 03/20/18 Haloperidol [Haldol -] 5 mg PO DAILY 03/20/18 - Diagnosis (1) Alcohol dependence with uncomplicated withdrawal Status: Acute (2) Nicotine dependence Status: Chronic Qualifiers: Nicotine product type: cigarettes Substance use status: in withdrawal Qualified Code(s): F17.213 - Nicotine dependence, cigarettes, with withdrawal (3) Cocaine dependence, uncomplicated Status: Chronic (4) Paranoid schizophrenia Status: Chronic - AMA Did Patient Leave Against Medical Advice: No (F/U with your PCP within 1-2 weeks )
== END 2018-03-24 08:56 | disposition home or self-care (01) | DRG 774 ==
LOC: YASAS 08:49 → Y3N 11:37
PROC: HZ2ZZZZ Detoxification Services for Substance Abuse Treatment (ICD-10-PCS; principal; 2018-03-20)
DX: F10.230 Alcohol dependence with withdrawal, uncomplicated (principal); F14.20 Cocaine dependence, uncomplicated; F12.20 Cannabis dependence, uncomplicated; F17.213 Nicotine dependence, cigarettes, with withdrawal; F20.0 Paranoid schizophrenia; R63.4 Abnormal weight loss; Z68.23 Body mass index [BMI] 23.0-23.9, adult
CPT/HCPCS: 36415; 80053; 81003; 85027; 86593; 93005; 93010

== ENCOUNTER 2018-08-14 09:44 | Inpatient (IN) | payer MEDICARE, OTHER ==
[2018-08-14 10:10] VITALS: BMI 22.9
--- NOTE | 2018-08-14 10:39 | HP ---
CIWA Score Nausea/Vomitin Muscle Tremors: 2 Anxiety: 2 Agitation: 2 Paroxysmal Sweats: 1-Minimal Palms Moist Orientation: 0-Oriented Tacttile Disturbances: 1-Very Mild Itch/Numbness Auditory Disturbances: 1-Very Mild Visual Disturbances: 0-None Headache: 2-Mild CIWA-Ar Total Score: 13 - Admission Criteria OASAS Guidelines: Admission for Medically Managed Detox: Requires at least one of the followin. CIWA greater than 12 2. Seizures within the past 24 hours 3. Delirium tremens within the past 24 hours 4. Hallucinations within the past 24 hours 5. Acute intervention needed for co occurring medical disorder 6. Acute intervention needed for co occurring psychiatric disorder 7. Severe withdrawal that cannot be handled at a lower level of care (continued vomiting, continued diarrhea, abnormal vital signs) requiring intravenous medication and/or fluids 8. Patient presents the following: CIWA greater than 12 Admission Criteria Met: Admission criteria met Admission ROS BHS - HPI Chief Complaint: i need help to stop drinking alcohol and cocaine Allergies/Adverse Reactions: Allergies Allergy/AdvReac Type Severity Reaction Status Date / Time No Known Allergies Allergy Verified 08/14/18 10:16 History of Present Illness: this 62 years old male with alcohol ,coaine dependence,seeking detox,withdrawal symptom,last detox 03/20/18 to 03/24/18 nicotine dependence schizophrenia multiple admissions in detox,keep relapsing weight loss longest period of sobriety 3 years - Ebola screening Have you traveled outside of the country in the last 21 days: No Have you had contact with anyone from an Ebola affected area: No Have you been sick,other than usual withdrawal symptoms: No Do you have a fever: No - Review of Systems Constitutional: Loss of Appetite, Malaise, Night Sweats, Changes in sleep, Weakness, Unintentional Wgt. Loss EENT: reports: Tearing, Nose Congestion Respiratory: reports: No Symptoms reported Cardiac: reports: No Symptoms Reported GI: reports: Nausea, Poor Appetite, Vomiting, Abdominal cramping : reports: No Symptoms Reported Musculoskeletal: reports: Back Pain, Muscle Pain Integumentary: reports: Dryness Neuro: reports: Headache, Tremors Endocrine: reports: No Symptoms Reported Hematology: reports: No Symptoms Reported Psychiatric: reports: No Sypmtoms Reported, Judgement Intact, Mood/Affect Appropiate, Orientated x3, other (schizophrenia) Other Systems: Reviewed and Negative Patient History - Patient Medical History Hx Anemia: No Hx Asthma: No Hx Chronic Obstructive Pulmonary Disease (COPD): No Hx Cancer: No Hx Cardiac Disorders: No Hx Congestive Heart Failure: No Hx Hypertension: No Hx Hypercholesterolemia: No Hx Pacemaker: No HX Cerebrovascular Accident: No Hx Seizures: No Hx Dementia: No Hx Diabetes: No Hx Gastrointestinal Disorders: No Hx Liver Disease: No Hx Genitourinary Disorders: No Hx Sexually Transmitted Disorders: No Hx Renal Disease (ESRD): No Hx Thyroid Disease: No Hx Human Immunodeficiency Virus (HIV): No (last 2012 negative) Hx Hepatitis C: No Hx Depression: No Hx Suicide Attempt: No Hx Bipolar Disorder: No Hx Schizophrenia: Yes (non compliance) Other Medical History: no suicidal,no homicidal - Patient Surgical History Past Surgical History: Yes Hx Neurologic Surgery: No Hx Cataract Extraction: No Hx Cardiac Surgery: No Hx Lung Surgery: No Hx Breast Surgery: No Hx Breast Biopsy: No Hx Abdominal Surgery: No Hx Appendectomy: No Hx Cholecystectomy: No Hx Genitourinary Surgery: No Hx Section: No Hx Orthopedic Surgery: No Other Surgical History: removal of [facility] Anesthesia Reaction: No - PPD History Previous Implant?: Yes Documented Results: Negative w/proof Implanted On Prior [facility] Admission?: Yes Date: 03/22/18 Results: 0 mm PPD to be Administered?: No - Smoking Cessation Smoking history: Current every day smoker Have you smoked in the past 12 months: Yes Aproximately how many cigarettes per day: 20 Cigars Per Day: 0 Hx Chewing Tobacco Use: No Initiated information on smoking cessation: Yes 'Breaking Loose' booklet given: 08/14/18 - Substance & Tx. History Hx Alcohol Use: Yes Hx Substance Use: Yes Substance Use Type: Alcohol, Cocaine Hx Substance Use Treatment: Yes ([facility] 03/20/18 to 03/24/18) - Substances Abused Crack Route: Smoking Frequency: Daily Amount used: $200 Age of first use: 33 Date of Last Use: 08/13/18 Alcohol-beer Route: Oral Frequency: Daily Amount used: 1-6 pk. Age of first use: 12 Date of Last Use: 08/13/18 Family Disease History - Family Disease History Family Disease History: Diabetes: Brother, Heart Disease: Mother (ME ), CA: Father () Admission Physical Exam BHS - Vital Signs Vital Signs: Vital Signs - 24 hr 08/14/18 10:06 Temperature 96.6 F L Pulse Rate 76 Respiratory 17 Rate Blood Pressure 106/69 - Physical General Appearance: Yes: Moderate Distress, Tremorous, Irritable, Sweating, Anxious HEENTM: Yes: Normal ENT Inspection, KASANDRA, Pharynx Normal, Other (no teeth) Respiratory: Yes: Lungs Clear, Normal Breath Sounds, No Respiratory Distress Neck: Yes: Within Normal Limits, Supple, Trachea in good position Breast: Yes: Within Normal Limits Cardiology: Yes: Within Normal Limits, Regular Rhythm, Regular Rate, S1, S2 Abdominal: Yes: Within Normal Limits, Normal Bowel Sounds, Non Tender, Flat, Soft Genitourinary: Yes: Within Normal Limits Back: Yes: Within Normal Limits Musculoskeletal: Yes: Back pain, Muscle Pain Extremities: Yes: Tremors Neurological: Yes: manager location II-XII NML intact, Fully Oriented, Alert, Motor Strength 5/5 Integumentary: Yes: Dry Lymphatic: Yes: Within Normal Limits - Diagnostic (1) Alcohol dependence with uncomplicated withdrawal Current Visit: No Status: Acute (2) Weight loss Current Visit: No Status: Acute (3) Cocaine dependence, uncomplicated Current Visit: No Status: Acute (4) Nicotine dependence Current Visit: No Status: Chronic Qualifiers: Nicotine product type: cigarettes Substance use status: in withdrawal Qualified Code(s): F17.213 - Nicotine dependence, cigarettes, with withdrawal (5) Paranoid schizophrenia Current Visit: No Status: Chronic (6) No natural teeth Current Visit: Yes Status: Acute Cleared for Admission [facility] - Detox or Rehab [facility] Level of Care: Medically Managed Detox Regimen/Protocol: Librium [facility] Breath Alcohol Content Breath Alcohol Content: 0.018 Urine Drug Screen - Results Drug Screen Negative: No Urine Drug Screen Results: MELQUIADES-Cocaine Inpatient Rehab Admission - Rehab Decision to Admit Inpatient rehab admission?: No
[2018-08-14] MEDS ORDERED: IBUPROFEN 400 MG TABLET (FP) PO PRN (10:47)
[2018-08-14] MEDS ORDERED: MAG HYDROX/AL HYDROX/SIMETH 30 ML UNIT-DOSE CUP PO PRN (10:47)
[2018-08-14] MEDS ORDERED: MENTHOL/PHENOL 1 EACH UD MM PRN (10:47)
[2018-08-14] MEDS ORDERED: P-EPHED 60MG/TRIPROLIDI 2.5MG TABLET PO PRN (10:47)
[2018-08-14] MEDS ORDERED: MAGNESIUM CITRATE 300 ML BOTTLE PO PRN (10:47)
[2018-08-14] MEDS ORDERED: MAGNESIUM HYDROX 2400MG/30ML ORAL SUSPENSION 30 ML CUP PO PRN (10:47)
[2018-08-14] MEDS ORDERED: guaiFENesin/D-METHORPHAN HB 10 ML UNIT-DOSE CUPS PO PRN (10:47)
[2018-08-14] MEDS ORDERED: hydrOXYzine PAMOATE 25 MG CAPSULE (FP) PO PRN (10:47)
[2018-08-14] MEDS ORDERED: ACETAMINOPHEN 325 MG TABLET (FP) PO PRN (10:47)
[2018-08-14] MEDS ORDERED: LOPERAMIDE HCL 2 MG CAPSULE PO PRN (10:47)
[2018-08-14] MEDS ORDERED: chlordiazePOXIDE HCL 25 MG CAPSULE PO PRN (10:47)
[2018-08-14] MEDS: NICOTINE 21 MG/24 HOURS TOPICAL PATCH TD SCH (13:25)
--- NOTE | 2018-08-14 13:47 | CONSULT ---
[facility] Psychiatric Consult - Data Date of interview: 08/14/18 Admission source: Self-referred Identifying data: Mr Rodgers is a 62 years old male, father of 2 children, unemployed on SSi, domiciled seeking detox treatment for alcohol and cocaine Substance Abuse History: Reports history of alcohol and cocaine use. He started drinking alcohol at age 12, consumesc a 6pk of beer daily. Last drank on . He started smkoing crack cocaine at age 33, consume $200 woth daily. Last smoked on 08/13/18. Refer to addiction counselor's summary for furter information Medical History: Unremarkable except for history of removal of lipoma over right side of chest in 2010. Smokes cigarettes 1 ppd Psychiatric History: Reports that his first psychiatric contact was at age 19 when he was admitted to [facility] and diagnosed with Paranoid Schizophrenia. Reports multiple subsequent admissions to various facilities including [facility] in [place], [facility], [facility], [facility]. Reports receiving psychiatric treatment at [facility] at [address] [place] [address] in [phone]. He is prescribed Haldol 10 mg po daily and Haldol Decanoate 100 mg IM Q monthly. External parmacy record shows scripts for Haldol 10 mg#30 filled on 07/03/18 and Haldol Dec 100 mg/ml vial#1 filled on 07/08/18 by provider Justin Arce. According to staff at [facility] patient received injection of Haldol Dec on July 23, 2018. Denies previous suicidal attempt[facility], reports feeling anxious and sleeping poorly Physical/Sexual Abuse/Trauma History: Denies history of emotional, physical or sexual abuse as well as Dv relationship Additional Comment: Reports history of 3 previous arrests on charges of drug possession. Denies being on probation at present Mental Status Exam - Mental Status Exam Alert and Oriented to: Time, Place, Person Cognitive Function: Fair Patient Appearance: Well Groomed Mood: Anxious Affect: Appropriate Patient Behavior: Cooperative Speech Pattern: Clear Voice Loudness: Normal Thought Process: Intact, Goal Oriented Thought Disorder: Not Present Hallucinations: Denies Suicidal Ideation: Denies Homicidal Ideation: Denies Insight/Judgement: Poor Sleep: Poorly Appetite: Good Muscle strength/Tone: Normal Gait/Station: Normal Psychiatric Findings - Problem List ([place] 1, 2,3) (1) Paranoid schizophrenia Current Visit: No Status: Chronic (2) Substance-induced anxiety disorder Current Visit: Yes Status: Acute (3) Substance-induced sleep disorder Current Visit: Yes Status: Acute (4) Alcohol dependence with uncomplicated withdrawal Current Visit: No Status: Acute (5) Cocaine dependence, uncomplicated Current Visit: No Status: Acute (6) Nicotine dependence Current Visit: No Status: Chronic Qualifiers: Nicotine product type: cigarettes Substance use status: in withdrawal Qualified Code(s): F17.213 - Nicotine dependence, cigarettes, with withdrawal - Initial Treatment Plan Initial Treatment Plan: 1) Continue Haldol 10 mg po daily starting on 08/15/18( Patient wants to start taking med tomorrow though he did not take it this morning). 2) Patient is due for Haldol Decanoate injection on 08/20/18. 3) Continue inpatient detoxification
[2018-08-14] MEDS: chlordiazePOXIDE HCL 25 MG CAPSULE PO SCH ×2 (18:05→22:11)
[2018-08-14] MEDS: THIAMINE HCL 100 MG TABLET (FP) PO SCH (22:10)
[2018-08-14] MEDS: MELATONIN 5 MG TABLETS PO PRN (22:10)
[2018-08-15] MEDS: chlordiazePOXIDE HCL 25 MG CAPSULE PO SCH ×4 (05:31→22:10)
--- NOTE | 2018-08-15 10:09 | PN ---
S CIWA - CIWA Score Nausea/Vomitin Muscle Tremors: 3 Anxiety: 2 Agitation: 2 Paroxysmal Sweats: 1-Minimal Palms Moist Orientation: 0-Oriented Tacttile Disturbances: 1-Very Mild Itch/Numbness Auditory Disturbances: 1-Very Mild Visual Disturbances: 0-None Headache: 2-Mild CIWA-Ar Total Score: 15 BHS Progress Note (SOAP) Subjective: alert,irritable,anxious,interrupted sleep, Objective: 08/15/18 10:08 Vital Signs Temperature 97.3 F L 08/15/18 09:04 Pulse Rate 69 08/15/18 09:04 Respiratory Rate 16 08/15/18 09:04 Blood Pressure 107/65 08/15/18 09:04 O2 Sat by Pulse Oximetry (%) 08/15/18 10:08 withdrawal symptom Assessment: 08/15/18 10:08 withdrawal symptom labs pending Plan: continue detox
[2018-08-15] MEDS: HALOPERIDOL 5 MG TABLET (FP) PO SCH (10:10)
[2018-08-15] MEDS: PRENATAL VITAMINS W/ FOLIC ACID TABLET (FP) PO SCH (10:10)
[2018-08-15] MEDS: NICOTINE 21 MG/24 HOURS TOPICAL PATCH TD SCH (10:12)
[2018-08-15 10:54] LABS: ALK PHOS 132 U/L (45-117); ANION GAP 7 MMOL/L (8-16); BILIRUBIN,TOTAL 0.6 mg/dL (0.2-1); BLOOD UREA NITROGEN 16 mg/dL (7-18); CALCIUM 8.8 mg/dL (8.5-10.1); CHLORIDE 102 mmol/L (98-107); CO2 29 mmol/L (21-32); CREATININE 1.1 mg/dL (0.55-1.3); GLUCOSE,RANDOM 109 mg/dL (74-106); POTASSIUM 4.1 mmol/L (3.5-5.1); SGOT/AST 22 U/L (15-37); SGPT/ALT 20 U/L (13-61); SODIUM 138 mmol/L (136-145); TOT PROT 7.8 g/dl (6.4-8.2)
[2018-08-15 11:00] LABS: HEMATOCRIT 40.9 % (35.4-49); HEMOGLOBIN 13.6 GM/dL (11.7-16.9); MCH 28.6 pg (25.7-33.7); MCHC 33.3 g/dl (32.0-35.9); MEAN PLT VOLUME 8.4 fl (7.5-11.1); PLATELET COUNT 204 K/MM3 (134-434); RBC 4.76 M/mm3 (4.00-5.60); WHITE BLOOD COUNT 6.5 K/mm3 (4.0-10.0)
[2018-08-15] MEDS: MELATONIN 5 MG TABLETS PO PRN (22:10)
[2018-08-15] MEDS: THIAMINE HCL 100 MG TABLET (FP) PO SCH (22:10)
[2018-08-16] MEDS: chlordiazePOXIDE HCL 25 MG CAPSULE PO SCH ×2 (05:44→10:43)
[2018-08-16] MEDS: NICOTINE 21 MG/24 HOURS TOPICAL PATCH TD SCH (10:43)
[2018-08-16] MEDS: PRENATAL VITAMINS W/ FOLIC ACID TABLET (FP) PO SCH (10:43)
[2018-08-16] MEDS: HALOPERIDOL 5 MG TABLET (FP) PO SCH (10:43)
[2018-08-16] MEDS: chlordiazePOXIDE 5 MG CAPSULE PO SCH ×2 (18:21→22:08)
[2018-08-16] MEDS: THIAMINE HCL 100 MG TABLET (FP) PO SCH (22:08)
[2018-08-17] MEDS: chlordiazePOXIDE 5 MG CAPSULE PO SCH ×2 (06:36→13:08)
--- NOTE | 2018-08-17 11:42 | PN ---
BHS Progress Note (SOAP) Subjective: Says he is feeling fine- completing alcohol detox- states will go to rehab tomorrow. Vital Signs - 24 hr 08/16/18 08/16/18 08/17/18 18:21 22:32 03:30 Temperature 98.6 F 98.1 F Pulse Rate 87 85 Respiratory 18 18 18 Rate Blood Pressure 112/67 123/77 08/17/18 08/17/18 08:41 09:40 Temperature 97.3 F L 96 F L Pulse Rate 73 80 Respiratory 16 18 Rate Blood Pressure 112/69 137/78 Laboratory Tests 08/15/18 08/15/18 08/15/18 06:00 06:00 06:00 WBC 6.5 RBC 4.76 Hgb 13.6 Hct 40.9 MCV 86.0 MCH 28.6 MCHC 33.3 RDW 14.0 Plt Count 204 MPV 8.4 Sodium 138 Potassium 4.1 Chloride 102 Carbon Dioxide 29 Anion Gap 7 L BUN 16 Creatinine 1.1 Creat Clearance w eGFR > 60 Random Glucose 109 H Calcium 8.8 Total Bilirubin 0.6 AST 22 ALT 20 Alkaline Phosphatase 132 H Total Protein 7.8 Albumin 4.0 RPR Titer Nonreactive a/p: continue alcohol detox protocol-d/c to rehab tomorrow
[2018-08-17] MEDS: HALOPERIDOL 5 MG TABLET (FP) PO SCH (13:08)
[2018-08-17] MEDS: PRENATAL VITAMINS W/ FOLIC ACID TABLET (FP) PO SCH (13:08)
[2018-08-17] MEDS: NICOTINE 21 MG/24 HOURS TOPICAL PATCH TD SCH (13:08)
[2018-08-17] MEDS: chlordiazePOXIDE HCL 10 MG CAPSULE PO SCH ×2 (17:37→22:01)
[2018-08-17] MEDS: THIAMINE HCL 100 MG TABLET (FP) PO SCH (22:01)
[2018-08-17] MEDS: MELATONIN 5 MG TABLETS PO PRN (22:02)
[2018-08-18] MEDS: chlordiazePOXIDE HCL 10 MG CAPSULE PO SCH ×2 (06:05→10:58)
[2018-08-18] MEDS: PRENATAL VITAMINS W/ FOLIC ACID TABLET (FP) PO SCH (10:57)
[2018-08-18] MEDS: HALOPERIDOL 5 MG TABLET (FP) PO SCH (10:57)
[2018-08-18] MEDS: NICOTINE 21 MG/24 HOURS TOPICAL PATCH TD SCH (10:58)
--- NOTE | 2018-08-18 12:11 | PN ---
[facility] Progress Note Note: PATIENT COMPLETED DETOX REGIMEN FOR ETOH DEPENDENCE. PATIENT FOR D/C TODAY BUT STATES HE WOULD LIKE TO STAY FOR REHAB. PATIENT FEELS AT RISK FOR RELAPSE IF HE WAS TO BE D/C HOME. REFERRED TO COUNSELOR AND PATIENT TO BE D/C TOMORROW TO REHAB PENDING BED AVAILABILITY. PATIENT STATES HE FEELS ANXIOUS AND HAS NIGHT SWEATS. Vital Signs Temperature 97.9 F 08/18/18 09:32 Pulse Rate 70 08/18/18 09:32 Respiratory Rate 08/18/18 09:32 Blood Pressure 117/70 08/18/18 09:32 O2 Sat by Pulse Oximetry (%) Laboratory Tests 08/15/18 08/15/18 08/15/18 06:00 06:00 06:00 WBC 6.5 RBC 4.76 Hgb 13.6 Hct 40.9 MCV 86.0 MCH 28.6 MCHC 33.3 RDW 14.0 Plt Count 204 MPV 8.4 Sodium 138 Potassium 4.1 Chloride 102 Carbon Dioxide 29 Anion Gap 7 L BUN 16 Creatinine 1.1 Creat Clearance w eGFR > 60 Random Glucose 109 H Calcium 8.8 Total Bilirubin 0.6 AST 22 ALT 20 Alkaline Phosphatase 132 H Total Protein 7.8 Albumin 4.0 RPR Titer Nonreactive PE: ALERT AND ORIENTED X 3 SKIN WARM AND DRY EXT NO VISIBLE TREMORS, AMB AD EUNICE +ANXIOUS, +ETOH CRAVINGS A/P ETOH DEPENDENCE CONTINUE CURRENT TREATMENT ORAL FLUIDS ENCOURAGED CONTINUE TO MONITOR
[2018-08-18] MEDS: THIAMINE HCL 100 MG TABLET (FP) PO SCH (22:17)
[2018-08-18] MEDS: MELATONIN 5 MG TABLETS PO PRN (22:17)
[2018-08-19] MEDS: PRENATAL VITAMINS W/ FOLIC ACID TABLET (FP) PO SCH (10:05)
[2018-08-19] MEDS: HALOPERIDOL 5 MG TABLET (FP) PO SCH (10:05)
[2018-08-19] MEDS: NICOTINE 21 MG/24 HOURS TOPICAL PATCH TD SCH (10:06)
--- NOTE | 2018-08-19 13:43 | PN ---
S CIWA - CIWA Score Nausea/Vomitin-No Nausea/No Vomiting Muscle Tremors: None Anxiety: 3 Agitation: 2 Paroxysmal Sweats: No Perspiration Orientation: 0-Oriented Tacttile Disturbances: 1-Very Mild Itch/Numbness Auditory Disturbances: 0-None Visual Disturbances: 1-Very Mild Sensitivity Headache: 0-None Present CIWA-Ar Total Score: 7 [facility] Progress Note (SOAP) Subjective: Anxious, Interrupted Sleep. Objective: PATIENT A & O X 3, OBSERVED AMBULATING ON UNIT. IN NO ACUTE DISTRESS. 08/19/18 13:44 Vital Signs Temperature 96.8 F L 08/19/18 13:29 Pulse Rate 85 08/19/18 13:29 Respiratory Rate 18 08/19/18 13:29 Blood Pressure 107/65 08/19/18 13:29 O2 Sat by Pulse Oximetry (%) Laboratory Tests 08/15/18 08/15/18 08/15/18 06:00 06:00 06:00 WBC 6.5 RBC 4.76 Hgb 13.6 Hct 40.9 MCV 86.0 MCH 28.6 MCHC 33.3 RDW 14.0 Plt Count 204 MPV 8.4 Sodium 138 Potassium 4.1 Chloride 102 Carbon Dioxide 29 Anion Gap 7 L BUN 16 Creatinine 1.1 Creat Clearance w eGFR > 60 Random Glucose 109 H Calcium 8.8 Total Bilirubin 0.6 AST 22 ALT 20 Alkaline Phosphatase 132 H Total Protein 7.8 Albumin 4.0 RPR Titer Nonreactive LABS NOTED. Assessment: 08/19/18 13:45 WITHDRAWAL SYMPTOMS. Plan: CONTINUE DETOX. PATIENT VERY MOTIVATED FOR AND INTENT ON GOING TO REHAB AFTER DISCHARGE FROM DETOX. NO BEDS AREA CURRENTLY AVAILABLE IN [facility] ([place], [place]) AND TODAY IS A HOLIDAY (THEREBY MAKING POSSIBILITY OF ADMISSION TO ANOTHER REHAB FACILITY UNLIKELY), PATIENT TO BE HELD ON DETOX UNIT UNTIL TOMORROW TO AWAIT POSSIBLE REHAB BED ADMISSION AT THAT TIME.
[2018-08-19] MEDS: MELATONIN 5 MG TABLETS PO PRN (22:14)
[2018-08-19] MEDS: THIAMINE HCL 100 MG TABLET (FP) PO SCH (22:14)
[2018-08-20 09:53] VITALS: BP 119/73; PULSE 79; TEMP 96.4
[2018-08-20] MEDS: PRENATAL VITAMINS W/ FOLIC ACID TABLET (FP) PO SCH (09:55)
[2018-08-20] MEDS: HALOPERIDOL 5 MG TABLET (FP) PO SCH (09:55)
--- NOTE | 2018-08-20 14:11 | DS ---
[facility] Detox Discharge Summary Admission Date: 08/14/18 Discharge Date: 08/20/18 - History Present History: Alcohol Dependence, Cocaine Dependence Additional Comments: PATIENT WISHED TO GO TO [facility] ([place], [place]) FOR AFTERCARE. HOWEVER, NO BEDS ARE AVAILABLE AT [facility] AT THIS TIME. PATIENT WILL GO HOME FOR TODAY, THEN WILL CONTACT VIA TELEPHONE [facility] ADMISSIONS DEPARTMENT STARTING TOMORROW AM TO INQUIRE ABOUT POSSIBLE ADMISSION / BED AVAILABILITY AT THAT TIME. PATIENT REPORTS THAT HE CURRENTLY HAS ADEQUATE SUPPLIES OF ALL PRESCRIBED HOME MEDICATIONS AT HOME AT THIS TIME. PATIENT WAS DISCHARGED FROM DETOX UNIT IN STABLE MEDICAL CONDITION. Pertinent Past History: Nicotine Dependence, No Natural Teeth, Weight Loss, History of (Paranoid) Schizophrenia. - Physical Exam Results Vital Signs: Vital Signs Temperature 96.4 F L 08/20/18 09:51 Pulse Rate 79 08/20/18 09:51 Respiratory Rate 16 08/20/18 09:51 Blood Pressure 119/73 08/20/18 09:51 O2 Sat by Pulse Oximetry (%) Pertinent Admission Physical Exam Findings: WITHDRAWAL SYMPTOMS. Laboratory Tests 08/15/18 08/15/18 08/15/18 06:00 06:00 06:00 WBC 6.5 RBC 4.76 Hgb 13.6 Hct 40.9 MCV 86.0 MCH 28.6 MCHC 33.3 RDW 14.0 Plt Count 204 MPV 8.4 Sodium 138 Potassium 4.1 Chloride 102 Carbon Dioxide 29 Anion Gap 7 L BUN 16 Creatinine 1.1 Creat Clearance w eGFR > 60 Random Glucose 109 H Calcium 8.8 Total Bilirubin 0.6 AST 22 ALT 20 Alkaline Phosphatase 132 H Total Protein 7.8 Albumin 4.0 RPR Titer Nonreactive LABS NOTED. - Treatment Hospital Course: Detox Protocol Followed, Detoxed Safely, Responded well, Discharged Condition Good, Rehab Referral Accepted Patient has Accepted a Rehab Referral to: [facility] ([place], [place]). - Medication Discharge Medications: Ambulatory Orders Haloperidol Decanoate [Haldol Decanoate 100] 100 mg IM MONTHLY 03/20/18 Haloperidol [Haldol -] 5 mg PO DAILY 03/20/18 - Diagnosis (1) Alcohol dependence with uncomplicated withdrawal Status: Acute (2) Cocaine dependence, uncomplicated Status: Acute (3) No natural teeth Status: Acute (4) Substance-induced anxiety disorder Status: Acute (5) Substance-induced sleep disorder Status: Acute (6) Nicotine dependence Status: Chronic Qualifiers: Nicotine product type: cigarettes Substance use status: in withdrawal Qualified Code(s): F17.213 - Nicotine dependence, cigarettes, with withdrawal (7) Paranoid schizophrenia Status: Chronic (8) Weight loss Status: Acute - AMA Did Patient Leave Against Medical Advice: No
== END 2018-08-20 11:04 | disposition home or self-care (01) | DRG 897 ==
LOC: YASAS 09:44 → Y6N 11:03
PROVIDERS: ADMIT Surgery; ATTEND Surgery
PROC: HZ2ZZZZ Detoxification Services for Substance Abuse Treatment (ICD-10-PCS; principal; 2018-08-14)
DX: F10.230 Alcohol dependence with withdrawal, uncomplicated (principal); F14.20 Cocaine dependence, uncomplicated; F20.0 Paranoid schizophrenia; F19.280 Other psychoactive substance dependence with psychoactive substance-induced anxiety disorder; F19.282 Other psychoactive substance dependence with psychoactive substance-induced sleep disorder; F17.210 Nicotine dependence, cigarettes, uncomplicated; K00.0 Anodontia; R63.4 Abnormal weight loss; Z68.23 Body mass index [BMI] 23.0-23.9, adult
CPT/HCPCS: 36415; 80053; 85027; 86593

== ENCOUNTER 2018-08-21 10:21 | Inpatient (IN) | payer MEDICARE, OTHER ==
[2018-08-21 10:29] VITALS: BMI 23.6
--- NOTE | 2018-08-21 13:45 | HP ---
CIWA Score - Admission Criteria [facility] Guidelines: Admission for Medically Managed Detox: Requires at least one of the followin. CIWA greater than 12 2. Seizures within the past 24 hours 3. Delirium tremens within the past 24 hours 4. Hallucinations within the past 24 hours 5. Acute intervention needed for co occurring medical disorder 6. Acute intervention needed for co occurring psychiatric disorder 7. Severe withdrawal that cannot be handled at a lower level of care (continued vomiting, continued diarrhea, abnormal vital signs) requiring intravenous medication and/or fluids 8. Admission ROS [facility] Chief Complaint: PATIENT COMPLETED DETOX AT [facility] ON 08/14/18 AND PRESENTS FOR REHAB TODAY. Allergies/Adverse Reactions: Allergies Allergy/AdvReac Type Severity Reaction Status Date / Time No Known Allergies Allergy Verified 08/14/18 10:16 History of Present Illness: PATIENT S/P DETOX 08/14/18. PATIENT PRESENTS FOR REHAB. PATIENT STARTED DRINKING AT AGE 12 AND DRANK UP TO 12 BEERS DAILY. LAST DRINK 08/14/18. PATIENT DENIES HX OF SEIZURES, BLACKOUTS. 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 PATIENT HAS PMH SCHIZOPHRENIA, TREATED WITH ORAL AND IM HALDOL- UNSURE OF DATE OF LAST INJECTION. TREATED BY DR. SWANSON IN [place], [place]. CROP ADJUSTER LISTED ARNOL AGUILAR [phone]. PATIENT DENIES SI/HI AND SUICIDE ATTEMPTS. Exam Limitations: No Limitations - Ebola screening Have you traveled outside of the country in the last 21 days: No Have you had contact with anyone from an Ebola affected area: No Have you been sick,other than usual withdrawal symptoms: No Do you have a fever: No - Review of Systems Constitutional: Changes in sleep, Unintentional Wgt. Loss EENT: reports: No Symptoms Reported Respiratory: reports: Cough (DRY COUGH) Cardiac: reports: No Symptoms Reported GI: reports: No Symptoms Reported : reports: No Symptoms Reported Musculoskeletal: reports: No Symptoms Reported Integumentary: reports: No Symptoms Reported Neuro: reports: No Symptoms reported Endocrine: reports: Unexplained Weight Loss Psychiatric: reports: Orientated x3, other (HX OF SCHIZOPHRENIA) Patient History - Patient Medical History Hx Anemia: No Hx Asthma: No Hx Chronic Obstructive Pulmonary Disease (COPD): No Hx Cancer: No Hx Cardiac Disorders: No Hx Congestive Heart Failure: No Hx Hypertension: No Hx Hypercholesterolemia: No Hx Pacemaker: No HX Cerebrovascular Accident: No Hx Seizures: No Hx Dementia: No Hx Diabetes: No Hx Gastrointestinal Disorders: No Hx Liver Disease: No Hx Genitourinary Disorders: No Hx Sexually Transmitted Disorders: No Hx Renal Disease (ESRD): No Hx Thyroid Disease: No Hx Human Immunodeficiency Virus (HIV): No (last 2013 negative) Hx Hepatitis C: No Hx Depression: No Hx Suicide Attempt: No Hx Bipolar Disorder: No Hx Schizophrenia: Yes (non compliance) - Patient Surgical History Past Surgical History: Yes Hx Neurologic Surgery: No Hx Cataract Extraction: No Hx Cardiac Surgery: No Hx Lung Surgery: No Hx Breast Surgery: No Hx Breast Biopsy: No Hx Abdominal Surgery: No Hx Appendectomy: No Hx Cholecystectomy: No Hx Genitourinary Surgery: No Hx Section: No Hx Orthopedic Surgery: No Other Surgical History: removal of lipoma of right chest wall at [place] [id number] Anesthesia Reaction: No - PPD History Date: 03/22/18 Results: 0 mm PPD to be Administered?: No - Smoking Cessation Smoking history: Current every day smoker Have you smoked in the past 12 months: Yes Aproximately how many cigarettes per day: 20 Cigars Per Day: 0 Hx Chewing Tobacco Use: No Initiated information on smoking cessation: Yes 'Breaking Loose' booklet given: 08/21/18 - Substance & Tx. History Hx Alcohol Use: Yes Hx Substance Use: No Substance Use Type: Alcohol Hx Substance Use Treatment: Yes - Substances Abused Alcohol Route: Oral Frequency: Daily Amount used: 12 BEERS Age of first use: 12 Date of Last Use: 08/14/18 Family Disease History - Family Disease History Family Disease History: Diabetes: Brother, Heart Disease: Mother ([place] ), [place]: Father () Admission Physical Exam [facility] - Vital Signs Vital Signs: Vital Signs - 24 hr 08/21/18 10:27 Temperature 97 F L Pulse Rate 82 Respiratory 20 Rate Blood Pressure 104/73 - Physical General Appearance: Yes: Appropriately Dressed, Thin HEENTM: Yes: EOMI, Hearing grossly Normal, Normal ENT Inspection, Normocephalic , Normal Voice, KASANDRA, Pharynx Normal Respiratory: Yes: Chest Non-Tender, Lungs Clear, Normal Breath Sounds, No Respiratory Distress, No Accessory Muscle Use Neck: Yes: No masses,lesions,Nodules, Supple, Trachea in good position Breast: Yes: Breast Exam Deferred Cardiology: Yes: Regular Rhythm, Regular Rate, S1, S2 Abdominal: Yes: Normal Bowel Sounds, Non Tender, Soft Genitourinary: Yes: Within Normal Limits Back: Yes: Normal Inspection Musculoskeletal: Yes: full range of Motion, Gait Steady Extremities: Yes: Normal Inspection, Normal Range of Motion, Non-Tender Neurological: Yes: services rep II-XII NML intact, Fully Oriented, Alert, Motor Strength 5/5, Normal Response, Other (HX OF SCHIZOPHRENIA) Integumentary: Yes: Normal Color, Dry, Warm Lymphatic: Yes: Within Normal Limits - Diagnostic (1) Alcohol dependence Current Visit: Yes Status: Chronic Qualifiers: Substance use status: uncomplicated Qualified Code(s): F10.20 - Alcohol dependence, uncomplicated (2) Weight loss Current Visit: Yes Status: Chronic (3) Nicotine dependence Current Visit: Yes Status: Chronic Qualifiers: Nicotine product type: cigarettes Substance use status: in withdrawal Qualified Code(s): F17.213 - Nicotine dependence, cigarettes, with withdrawal (4) Schizophrenia Current Visit: Yes Status: Chronic Cleared for Admission [facility] - Detox or Rehab Claeared for Rehab Admission: Yes [facility] Breath Alcohol Content Breath Alcohol Content: 0 Urine Drug Screen - Results Drug Screen Negative: No Urine Drug Screen Results: BZO-Benzodiazepines Inpatient Rehab Admission - Rehab Decision to Admit Inpatient rehab admission?: Yes - Initial Determination Are CD services needed?: Yes Free of communicable disease: Yes Not in need of hospitalization: Yes - Rehab Admission Criteria Previous failed treatment: Yes Poor recovery environment: Yes Comorbidities: Yes Lacks judgement: No Patient is meeting Inpatient Rehab admission criteria:: Yes
[2018-08-21] MEDS ORDERED: guaiFENesin/D-METHORPHAN HB 10 ML UNIT-DOSE CUPS PO PRN (13:56)
[2018-08-21] MEDS ORDERED: P-EPHED 60MG/TRIPROLIDI 2.5MG TABLET PO PRN (13:56)
[2018-08-21] MEDS ORDERED: hydrOXYzine PAMOATE 50 MG CAPSULE (FP) PO PRN (13:56)
[2018-08-21] MEDS ORDERED: MAG HYDROX/AL HYDROX/SIMETH 30 ML UNIT-DOSE CUP PO PRN (13:56)
[2018-08-21] MEDS ORDERED: ACETAMINOPHEN 325 MG TABLET (FP) PO PRN (13:56)
[2018-08-21] MEDS ORDERED: LOPERAMIDE HCL 2 MG CAPSULE PO PRN (13:56)
[2018-08-21] MEDS ORDERED: MAGNESIUM HYDROX 2400MG/30ML ORAL SUSPENSION 30 ML CUP PO PRN (13:56)
[2018-08-21] MEDS ORDERED: NICOTINE POLACRILEX 2 MG GUM BC PRN (13:56)
[2018-08-21] MEDS ORDERED: MAGNESIUM CITRATE 300 ML BOTTLE PO PRN (13:56)
[2018-08-21] MEDS ORDERED: MENTHOL/PHENOL 1 EACH UD MM PRN (13:56)
[2018-08-21] MEDS: MELATONIN 5 MG TABLETS PO PRN (21:51)
[2018-08-21] MEDS: THIAMINE HCL 100 MG TABLET (FP) PO SCH (21:51)
[2018-08-22] MEDS: NICOTINE 21 MG/24 HOURS TOPICAL PATCH TD SCH (10:44)
[2018-08-22] MEDS: PRENATAL VITAMINS W/ FOLIC ACID TABLET (FP) PO SCH (10:44)
--- NOTE | 2018-08-22 10:56 | CONSULT ---
[facility] Psychiatric Consult - Data Date of interview: 08/22/18 Admission source: [facility] Identifying data: Hedy is a 63 years old male, father of two, living with his brither, on SSI support, with history of Paranoid Schizophrenia, history of psychiatric hospitalizations, with long history of Alcohool, Nicotine depemndence,. Patient is reporting Alcohol withdrawal symptomsm and seeking ndetox. Substance Abuse History: Smoking history: Current every day smoker. Have you smoked in the past 12 months: Yes. Aproximately how many cigarettes per day: 20. Cigars Per Day: 0. Hx Chewing Tobacco Use: No. Initiated information on smoking cessation: Yes. 'Breaking Loose' booklet given: 08/21/18. - Substance & Tx. History. Hx Alcohol Use: Yes. Hx Substance Use: No. Substance Use Type : Alcohol. Hx Substance Use Treatment: Yes. - Substances Abused. Alcohol. Route: Oral. Frequency: Daily. Amount used: 12 BEERS. Age of first use: 12. Date of Last Use: 08/14/18 Medical History: Weight loss history,. No significant meduical problem reported Psychiatric History: Patient reports history of Paranoid Schizophrenia with [facility] most recent psychiatriuc hospitalization at [facility] on 2012 for safety. Patient reports currently stable on: Haldol 5mg poqd. Haldol Decanoate 100mg IM/monthly with last injection on 07/17/18. Patient reports stable on Haldol Decanoate since 19 years old ddue to Non Comploianc ewith psychiatric medications, reports usually doing his injections at the middle of each month. Denies suicidal, homicidal history. Physical/Sexual Abuse/Trauma History: Denies Additional Comment: Haldol 5mg poqd. Haldol Decanoate 100mg IM/monthly with last injection on 07/17/18 Mental Status Exam - Mental Status Exam Alert and Oriented to: Person Cognitive Function: Fair Patient Appearance: Well Groomed Mood: Apprehensive Affect: Mood Congruent Patient Behavior: Cooperative Speech Pattern: Appropriate Voice Loudness: Normal Thought Process: Circumstantial, Goal Oriented Thought Disorder: Being Controlled Hallucinations: Denies Suicidal Ideation: Denies Homicidal Ideation: Denies Insight/Judgement: Fair Sleep: Difficulty falling asleep Appetite: Weight loss Muscle strength/Tone: Normal Gait/Station: Normal Additional Comments: Haldol 5mg poqd. Haldol Decanoate 100mg IM/monthly with last injection on 07/17/18 Psychiatric Findings - Problem List (Bradley 1, 2,3) (1) Alcohol dependence Current Visit: Yes Status: Chronic Qualifiers: Substance use status: uncomplicated Qualified Code(s): F10.20 - Alcohol dependence, uncomplicated (2) Nicotine dependence Current Visit: Yes Status: Chronic Qualifiers: Nicotine product type: cigarettes Substance use status: in withdrawal Qualified Code(s): F17.213 - Nicotine dependence, cigarettes, with withdrawal (3) Schizophrenia Current Visit: Yes Status: Chronic (4) Weight loss Current Visit: Yes Status: Chronic (5) Alcohol dependence with uncomplicated withdrawal Current Visit: No Status: Acute (6) Cocaine dependence, uncomplicated Current Visit: No Status: Acute (7) Substance-induced anxiety disorder Current Visit: No Status: Acute (8) Cannabis dependence, uncomplicated Current Visit: No Status: Chronic (9) Paranoid schizophrenia Current Visit: No Status: Chronic - Initial Treatment Plan Initial Treatment Plan: Haldol Decanoate 100mg IM, last injection on 07/17/18. Haldol 5mg poqd. Cogentin 2mg po together with Haldol [id number] injection, once
[2018-08-22] MEDS ORDERED: HALOPERIDOL DECANOATE 100 MG/ML IM SCH ×2 (12:30→12:34)
[2018-08-22] MEDS: HALOPERIDOL 5 MG TABLET (FP) PO SCH (14:31)
[2018-08-22] MEDS ORDERED: BENZTROPINE MESYLATE 2 MG TABLET PO ONE (14:43)
[2018-08-22] MEDS ORDERED: BENZTROPINE MESYLATE 1 MG TABLET (FP) PO ONE (15:15)
[2018-08-22] MEDS: MELATONIN 5 MG TABLETS PO PRN (21:45)
[2018-08-22] MEDS: THIAMINE HCL 100 MG TABLET (FP) PO SCH (21:45)
[2018-08-23] MEDS: NICOTINE 21 MG/24 HOURS TOPICAL PATCH TD SCH (10:31)
[2018-08-23] MEDS: HALOPERIDOL 5 MG TABLET (FP) PO SCH (10:31)
[2018-08-23] MEDS: PRENATAL VITAMINS W/ FOLIC ACID TABLET (FP) PO SCH (10:31)
[2018-08-23] MEDS: MELATONIN 5 MG TABLETS PO PRN (21:39)
[2018-08-23] MEDS: THIAMINE HCL 100 MG TABLET (FP) PO SCH (21:39)
[2018-08-24] MEDS: HALOPERIDOL 5 MG TABLET (FP) PO SCH (10:07)
[2018-08-24] MEDS: NICOTINE 21 MG/24 HOURS TOPICAL PATCH TD SCH (10:07)
[2018-08-24] MEDS: PRENATAL VITAMINS W/ FOLIC ACID TABLET (FP) PO SCH (10:07)
[2018-08-24] MEDS: THIAMINE HCL 100 MG TABLET (FP) PO SCH (21:36)
[2018-08-24] MEDS: MELATONIN 5 MG TABLETS PO PRN (21:37)
[2018-08-25] MEDS: IBUPROFEN 400 MG TABLET (FP) PO PRN ×2 (08:15→21:45)
[2018-08-25] MEDS: PRENATAL VITAMINS W/ FOLIC ACID TABLET (FP) PO SCH (10:32)
[2018-08-25] MEDS: NICOTINE 21 MG/24 HOURS TOPICAL PATCH TD SCH (10:32)
[2018-08-25] MEDS: HALOPERIDOL 5 MG TABLET (FP) PO SCH (10:32)
[2018-08-25] MEDS: THIAMINE HCL 100 MG TABLET (FP) PO SCH (21:45)
[2018-08-25] MEDS: MELATONIN 5 MG TABLETS PO PRN (21:46)
[2018-08-26] MEDS: HALOPERIDOL 5 MG TABLET (FP) PO SCH (10:47)
[2018-08-26] MEDS: NICOTINE 21 MG/24 HOURS TOPICAL PATCH TD SCH (10:47)
[2018-08-26] MEDS: PRENATAL VITAMINS W/ FOLIC ACID TABLET (FP) PO SCH (10:47)
[2018-08-26] MEDS: THIAMINE HCL 100 MG TABLET (FP) PO SCH (21:51)
[2018-08-26] MEDS: IBUPROFEN 400 MG TABLET (FP) PO PRN (21:52)
[2018-08-26] MEDS: MELATONIN 5 MG TABLETS PO PRN (21:53)
[2018-08-27] MEDS: HALOPERIDOL 5 MG TABLET (FP) PO SCH (11:00)
[2018-08-27] MEDS: NICOTINE 21 MG/24 HOURS TOPICAL PATCH TD SCH (11:00)
[2018-08-27] MEDS: PRENATAL VITAMINS W/ FOLIC ACID TABLET (FP) PO SCH (11:00)
[2018-08-27] MEDS: THIAMINE HCL 100 MG TABLET (FP) PO SCH (21:52)
[2018-08-27] MEDS: MELATONIN 5 MG TABLETS PO PRN (21:52)
[2018-08-28] MEDS: PRENATAL VITAMINS W/ FOLIC ACID TABLET (FP) PO SCH (10:40)
[2018-08-28] MEDS: NICOTINE 21 MG/24 HOURS TOPICAL PATCH TD SCH (10:40)
[2018-08-28] MEDS: HALOPERIDOL 5 MG TABLET (FP) PO SCH (10:40)
--- NOTE | 2018-08-28 15:11 | PN ---
[facility] Progress Note Note: Patient complains of sleeping poorly despite taking current medication. Will start Belsomra 10 mg po HS prn for insomnia
[2018-08-28] MEDS: THIAMINE HCL 100 MG TABLET (FP) PO SCH (21:44)
[2018-08-28] MEDS: MELATONIN 5 MG TABLETS PO PRN (21:44)
[2018-08-28] MEDS ORDERED: SUVOREXANT 10 MG TABLET PO PRN (22:00)
[2018-08-29] MEDS: PRENATAL VITAMINS W/ FOLIC ACID TABLET (FP) PO SCH (10:21)
[2018-08-29] MEDS: NICOTINE 21 MG/24 HOURS TOPICAL PATCH TD SCH (10:21)
[2018-08-29] MEDS: HALOPERIDOL 5 MG TABLET (FP) PO SCH (10:21)
--- NOTE | 2018-08-29 15:09 | PN ---
S Progress Note Note: Patient continues to report sleeping poorly despite taking Belsomra 10 mg at bedtime. will increase Belsomra dosage to 15 mg mg po HS prn for insomnia
[2018-08-29] MEDS: MELATONIN 5 MG TABLETS PO PRN (21:44)
[2018-08-29] MEDS: THIAMINE HCL 100 MG TABLET (FP) PO SCH (21:44)
[2018-08-29] MEDS ORDERED: SUVOREXANT 10 MG TABLET PO PRN (22:00)
[2018-08-30] MEDS: HALOPERIDOL 5 MG TABLET (FP) PO SCH (10:18)
[2018-08-30] MEDS: PRENATAL VITAMINS W/ FOLIC ACID TABLET (FP) PO SCH (10:19)
[2018-08-30] MEDS: NICOTINE 21 MG/24 HOURS TOPICAL PATCH TD SCH (10:19)
[2018-08-30] MEDS: THIAMINE HCL 100 MG TABLET (FP) PO SCH (21:49)
[2018-08-30] MEDS: MELATONIN 5 MG TABLETS PO PRN (21:51)
[2018-08-30] MEDS ORDERED: SUVOREXANT 5 MG TABLET ONE (22:06)
[2018-08-30] MEDS ORDERED: SUVOREXANT 10 MG TABLET PO ONE (22:06)
[2018-08-30] MEDS: SUVOREXANT 10 MG, SUVOREXANT 5 MG PO PRN (22:07)
[2018-08-31] MEDS: HALOPERIDOL 5 MG TABLET (FP) PO SCH (10:27)
[2018-08-31] MEDS: PRENATAL VITAMINS W/ FOLIC ACID TABLET (FP) PO SCH (10:27)
[2018-08-31] MEDS: NICOTINE 21 MG/24 HOURS TOPICAL PATCH TD SCH (10:27)
[2018-08-31] MEDS: THIAMINE HCL 100 MG TABLET (FP) PO SCH (21:36)
[2018-08-31] MEDS: MELATONIN 5 MG TABLETS PO PRN (21:37)
[2018-08-31] MEDS: SUVOREXANT 10 MG, SUVOREXANT 5 MG PO PRN (21:37)
[2018-08-31] MEDS ORDERED: SUVOREXANT 10 MG TABLET PO ONE (21:38)
[2018-08-31] MEDS ORDERED: SUVOREXANT 5 MG TABLET ONE (21:38)
[2018-09-01] MEDS: PRENATAL VITAMINS W/ FOLIC ACID TABLET (FP) PO SCH (10:04)
[2018-09-01] MEDS: NICOTINE 21 MG/24 HOURS TOPICAL PATCH TD SCH (10:07)
[2018-09-01] MEDS: HALOPERIDOL 5 MG TABLET (FP) PO SCH (10:45)
[2018-09-01] MEDS ORDERED: SUVOREXANT 5 MG TABLET ONE (20:24)
[2018-09-01] MEDS ORDERED: SUVOREXANT 10 MG TABLET PO ONE (20:25)
[2018-09-01] MEDS: MELATONIN 5 MG TABLETS PO PRN (21:39)
[2018-09-01] MEDS: THIAMINE HCL 100 MG TABLET (FP) PO SCH (21:39)
[2018-09-01] MEDS: SUVOREXANT 10 MG, SUVOREXANT 5 MG PO PRN (21:40)
[2018-09-02] MEDS: NICOTINE 21 MG/24 HOURS TOPICAL PATCH TD SCH (10:42)
[2018-09-02] MEDS: PRENATAL VITAMINS W/ FOLIC ACID TABLET (FP) PO SCH (10:43)
[2018-09-02] MEDS: HALOPERIDOL 5 MG TABLET (FP) PO SCH (12:30)
[2018-09-02] MEDS: SUVOREXANT 10 MG, SUVOREXANT 5 MG PO PRN (21:46)
[2018-09-02] MEDS ORDERED: SUVOREXANT 10 MG TABLET PO ONE (21:47)
[2018-09-02] MEDS ORDERED: SUVOREXANT 5 MG TABLET ONE (21:47)
[2018-09-02] MEDS: THIAMINE HCL 100 MG TABLET (FP) PO SCH (21:48)
[2018-09-02] MEDS: MELATONIN 5 MG TABLETS PO PRN (21:48)
[2018-09-03 07:11] VITALS: BP 108/89; PULSE 62; TEMP 98.3
[2018-09-03] MEDS: NICOTINE 21 MG/24 HOURS TOPICAL PATCH TD SCH (10:18)
[2018-09-03] MEDS: HALOPERIDOL 5 MG TABLET (FP) PO SCH (10:18)
[2018-09-03] MEDS: PRENATAL VITAMINS W/ FOLIC ACID TABLET (FP) PO SCH (10:18)
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
== END 2018-09-03 06:05 | disposition left against medical advice (07) | DRG 894 ==
LOC: YASAS 10:21 → Y5N 14:15
PROVIDERS: ADMIT Neuromusculoskeletal Medicine & OMM; ATTEND Neuromusculoskeletal Medicine & OMM
PROC: HZ42ZZZ Group Counseling for Substance Abuse Treatment, Cognitive-Behavioral (ICD-10-PCS; principal; 2018-08-21)
DX: F10.20 Alcohol dependence, uncomplicated (principal); F14.20 Cocaine dependence, uncomplicated; F20.0 Paranoid schizophrenia; F19.280 Other psychoactive substance dependence with psychoactive substance-induced anxiety disorder; F12.20 Cannabis dependence, uncomplicated; F17.213 Nicotine dependence, cigarettes, with withdrawal; R63.4 Abnormal weight loss; Z68.23 Body mass index [BMI] 23.0-23.9, adult; Z91.14 Patient's other noncompliance with medication regimen

== ENCOUNTER 2019-07-05 12:00 | Inpatient (IN) | payer OTHER ==
[2019-07-05 17:01] VITALS: BMI 21.3
--- NOTE | 2019-07-05 18:49 | HP ---
CIWA Score Nausea/Vomitin Muscle Tremors: 3 Anxiety: 3 Agitation: 3 Paroxysmal Sweats: 1-Minimal Palms Moist Orientation: 0-Oriented Tacttile Disturbances: 1-Very Mild Itch/Numbness Auditory Disturbances: 0-None Visual Disturbances: 0-None Headache: 2-Mild CIWA-Ar Total Score: 15 - Admission Criteria OASAS Guidelines: Admission for Medically Managed Detox: Requires at least one of the followin. CIWA greater than 12 2. Seizures within the past 24 hours 3. Delirium tremens within the past 24 hours 4. Hallucinations within the past 24 hours 5. Acute intervention needed for co occurring medical disorder 6. Acute intervention needed for co occurring psychiatric disorder 7. Severe withdrawal that cannot be handled at a lower level of care (continued vomiting, continued diarrhea, abnormal vital signs) requiring intravenous medication and/or fluids 8. Admitting History and Physical - Admission Chief Complaint: i need help to stop drinking alcohol,cocaine History of Present Illness: this 63 years old male with alcohol and cocaine dependence,seeking detox, denied seizure denied syncope fell 1 week ago,abrasion of nose weight loss nicotine dependence longest sobriety 14 years plan for rehab after detox History Source: Patient Limitations to Obtaining History: No Limitations - Past Medical History Additional Past Medical History: fell 1 week ago,abrasion of the nose - Past Surgical History Additional Past Surgical History: cyst of chest wall at age of 37 - Smoking History Smoking history: Current every day smoker Have you smoked in the past 12 months: Yes Aproximately how many cigarettes per day: 20 - Alcohol/Substance Use Hx Alcohol Use: Yes - Social History Usual Living Arrangement: Yes: With Significant Other (brother) ADL: Independent 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 Admission ROS S - HPI Chief Complaint: i need help to stop drinking alcohol and cocaine Allergies/Adverse Reactions: Allergies Allergy/AdvReac Type Severity Reaction Status Date / Time No Known Allergies Allergy Verified 07/05/19 16:51 History of Present Illness: this 63 years old male with alcohol and cocaine dependence,seeking detox, withdrawal symptom, multiple admissions in detox no seizure no syncope feel 1 week ago,has abrasion of nose nicotine dependence 1 pack/day longest sobriety 14 years plan for rehab after detox Exam Limitations: No Limitations - Ebola screening Have you traveled outside of the country in the last 21 days: No Have you had contact with anyone from an Ebola affected area: No Do you have a fever: No - Review of Systems Constitutional: Loss of Appetite, Malaise, Night Sweats, Changes in sleep, Unintentional Wgt. Loss EENT: reports: Nose Congestion Respiratory: reports: No Symptoms reported Cardiac: reports: No Symptoms Reported GI: reports: No Symptoms Reported : reports: No Symptoms Reported Musculoskeletal: reports: Back Pain, Muscle Pain Integumentary: reports: Dryness Neuro: reports: Headache, Tremors Endocrine: reports: No Symptoms Reported Hematology: reports: No Symptoms Reported Psychiatric: reports: No Sypmtoms Reported, Judgement Intact, Mood/Affect Appropiate, Orientated x3 Other Systems: Reviewed and Negative Patient History - Patient Medical History Hx Anemia: No Hx Asthma: No Hx Chronic Obstructive Pulmonary Disease (COPD): No Hx Cancer: No Hx Cardiac Disorders: No Hx Congestive Heart Failure: No Hx Hypertension: No Hx Hypercholesterolemia: No Hx Pacemaker: No HX Cerebrovascular Accident: No Hx Seizures: No Hx Dementia: No Hx Diabetes: No Hx Gastrointestinal Disorders: No Hx Liver Disease: No Hx Genitourinary Disorders: No Hx Sexually Transmitted Disorders: No Hx Renal Disease (ESRD): No Hx Thyroid Disease: No Hx Human Immunodeficiency Virus (HIV): No (last 2012 negative) Hx Hepatitis C: No Hx Depression: No Hx Suicide Attempt: No Hx Bipolar Disorder: No Hx Schizophrenia: Yes (no medication) Other Medical History: no suicidal,no homicidal - Patient Surgical History Past Surgical History: Yes Hx Neurologic Surgery: No Hx Cataract Extraction: No Hx Cardiac Surgery: No Hx Lung Surgery: No Hx Breast Surgery: No Hx Breast Biopsy: No Hx Abdominal Surgery: No Hx Appendectomy: No Hx Cholecystectomy: No Hx Genitourinary Surgery: No Hx Section: No Hx Orthopedic Surgery: No Other Surgical History: removal of lipoma of right chest wall at [facility] 2010 Anesthesia Reaction: No - PPD History Previous Implant?: Yes Documented Results: Negative w/o proof Implanted On Prior [facility] Admission?: Yes Date: 03/22/18 Results: 0 mm PPD to be Administered?: Yes - Smoking Cessation Smoking history: Current every day smoker Have you smoked in the past 12 months: Yes Aproximately how many cigarettes per day: 20 Cigars Per Day: 0 Hx Chewing Tobacco Use: No Initiated information on smoking cessation: Yes 'Breaking Loose' booklet given: 07/05/19 - Substance & Tx. History Hx Alcohol Use: Yes Hx Substance Use: Yes Substance Use Type: Alcohol, Cocaine Hx Substance Use Treatment: Yes (last [facility] 08/02/18 to 08/20/18 [facility],rehab to 09/03/18) - Substances abused Crack Substance route: Smoking Frequency: Daily Amount used: 250 dollars Age of first use: 33 Date of last use: 07/04/19 Alcohol Substance route: Oral Frequency: Daily Amount used: 2 packs of beer/1 pint of whisky Age of first use: 12 Date of last use: 07/04/19 Admission Physical Exam [facility] - Vital Signs Vital Signs: Vital Signs - 24 hr 07/05/19 16:53 Temperature 97.2 F L Pulse Rate 77 Respiratory 16 Rate Blood Pressure 109/69 - Physical General Appearance: Yes: Moderate Distress, Tremorous, Irritable, Sweating, Anxious HEENTM: Yes: Normal ENT Inspection, KASANDRA, Pharynx Normal, Other (abrasion of nose) Respiratory: Yes: Within Normal Limits, Lungs Clear, Normal Breath Sounds Neck: Yes: Within Normal Limits, Supple, Trachea in good position Breast: Yes: Within Normal Limits Cardiology: Yes: Within Normal Limits, Regular Rhythm, Regular Rate, S1, S2 Abdominal: Yes: Within Normal Limits, Normal Bowel Sounds, Non Tender, Soft Genitourinary: Yes: Within Normal Limits Back: Yes: Muscle Spasm Musculoskeletal: Yes: Back pain, Muscle Pain Extremities: Yes: Tremors Neurological: Yes: data warehousing specialist II-XII NML intact, Fully Oriented, Alert Integumentary: Yes: Dry Lymphatic: Yes: Within Normal Limits - Diagnostic (1) Alcohol dependence with uncomplicated withdrawal Current Visit: No Status: Acute (2) Cocaine dependence, uncomplicated Current Visit: No Status: Acute (3) No natural teeth Current Visit: No Status: Acute (4) Nicotine dependence Current Visit: No Status: Chronic Qualifiers: Nicotine product type: cigarettes Substance use status: in withdrawal Qualified Code(s): F17.213 - Nicotine dependence, cigarettes, with withdrawal (5) Schizophrenia Current Visit: No Status: Chronic (6) Weight loss Current Visit: No Status: Chronic (7) Abrasion Current Visit: Yes Status: Acute Cleared for Admission [facility] - Detox or Rehab [facility] Level of Care: Medically Managed Detox Regimen/Protocol: Librium Breathalyzer - Breathalyzer Breathalyzer: 0.139 Urine Drug Screen - Test Device Lot number: [id number] Expiration date: 03/31/21 - Control Is test valid?: Yes - Results Drug screen NEGATIVE: No Urine drug screen results: THC-Marijuana, MELQUIADES-Cocaine Inpatient Rehab Admission - Rehab Decision to Admit Inpatient rehab admission?: No
[2019-07-05] MEDS ORDERED: BISMUTH SUBSALICYLATE 524 MG/30 ML UD PO PRN (19:27)
[2019-07-05] MEDS ORDERED: IBUPROFEN 400 MG TABLET (FP) PO PRN (19:27)
[2019-07-05] MEDS ORDERED: ACETAMINOPHEN 325 MG TABLET (FP) PO PRN ×2 (19:27)
[2019-07-05] MEDS ORDERED: MENTHOL/PHENOL 1 EACH UD MM PRN (19:27)
[2019-07-05] MEDS ORDERED: hydrOXYzine PAMOATE 25 MG CAPSULE (FP) PO PRN (19:27)
[2019-07-05] MEDS ORDERED: MAG HYDROX/AL HYDROX/SIMETH 30 ML UNIT-DOSE CUP PO PRN (19:27)
[2019-07-05] MEDS ORDERED: MAGNESIUM HYDROX 2400MG/30ML ORAL SUSPENSION 30 ML CUP PO PRN (19:27)
[2019-07-05] MEDS ORDERED: chlordiazePOXIDE HCL 25 MG CAPSULE PO PRN (19:27)
[2019-07-05] MEDS ORDERED: METHOCARBAMOL 500 MG TABLET PO PRN (19:27)
[2019-07-05] MEDS ORDERED: MAGNESIUM CITRATE 300 ML BOTTLE PO PRN (19:27)
[2019-07-05] MEDS ORDERED: MELATONIN 5 MG TABLETS PO PRN (22:00)
[2019-07-05] MEDS: chlordiazePOXIDE HCL 25 MG CAPSULE PO SCH (22:30)
[2019-07-05] MEDS: THIAMINE HCL 100 MG TABLET (FP) PO SCH (22:30)
[2019-07-06] MEDS: chlordiazePOXIDE HCL 25 MG CAPSULE PO SCH ×4 (05:38→22:25)
[2019-07-06] MEDS: PRENATAL VITAMINS W/ FOLIC ACID TABLET (FP) PO SCH (10:29)
[2019-07-06] MEDS: NICOTINE 21 MG/24 HOURS TOPICAL PATCH TD SCH (10:29)
[2019-07-06 13:35] LABS: HEMATOCRIT 38.9 % (35.4-49); HEMOGLOBIN 12.4 GM/dL (11.7-16.9); MCH 27.2 pg (25.7-33.7); MEAN CELL VOLUME 85.1 fl (80-96); MEAN PLT VOLUME 8.1 fl (7.5-11.1); PLATELET COUNT 226 K/MM3 (134-434); RBC 4.57 M/mm3 (4.00-5.60); WHITE BLOOD COUNT 4.9 K/mm3 (4.0-10.0)
--- NOTE | 2019-07-06 13:40 | PN ---
[facility] CIWA - CIWA Score Nausea/Vomitin-Mild Nausea/No Vomiting Muscle Tremors: 3 Anxiety: 3 Agitation: 2 Paroxysmal Sweats: 2 Orientation: 1-Uncertain about Date Tacttile Disturbances: 0-None Auditory Disturbances: 0-None Visual Disturbances: 0-None Headache: 1-Very Mild CIWA-Ar Total Score: 13 S Progress Note (SOAP) Subjective: 63 years old male admitted on 07/05/19 for alcohol withdrawal sx management treated with librium detox regimen sitting on the edge of the bed eating breakfast tolerated food and fluid well Objective: 07/06/19 13:40 Vital Signs Temperature 96.9 F L 07/06/19 13:16 Pulse Rate 90 07/06/19 13:16 Respiratory Rate 18 07/06/19 13:16 Blood Pressure 100/71 07/06/19 13:16 O2 Sat by Pulse Oximetry (%) Laboratory Last Values WBC 4.9 K/mm3 (4.0-10.0) 07/06/19 07:30 RBC 4.57 M/mm3 (4.00-5.60) 07/06/19 07:30 Hgb 12.4 GM/dL (11.7-16.9) 07/06/19 07:30 Hct 38.9 % (35.4-49) 07/06/19 07:30 MCV 85.1 fl (80-96) 07/06/19 07:30 MCH 27.2 pg (25.7-33.7) 07/06/19 07:30 MCHC 32.0 g/dl (32.0-35.9) 07/06/19 07:30 RDW 14.0 % (11.9-15.9) 07/06/19 07:30 Plt Count 226 K/MM3 (134-434) 07/06/19 07:30 MPV 8.1 fl (7.5-11.1) 07/06/19 07:30 07/06/19 13:40 lab pending Assessment: 07/06/19 13:40 alcohol withdrawal Plan: librium regimen
[2019-07-06 13:47] LABS: ALBUMIN 3.5 g/dl (3.4-5.0); BILIRUBIN,TOTAL 0.4 mg/dL (0.2-1); BLOOD UREA NITROGEN 11.5 mg/dL (7-18); CALCIUM 8.3 mg/dL (8.5-10.1); POTASSIUM 4.1 mmol/L (3.5-5.1)
--- NOTE | 2019-07-06 14:05 | CONSULT ---
[facility] Psychiatric Consult - Data Date of interview: 07/06/19 Admission source: [facility] Identifying data: Patient is a 63 year old single male, father of three, unemployed, domiciled and is supported by [facility]. This is one of multiple admissions for patient. Patient admitted to for alcohol and cocaine dependence. Substance Abuse History: Smoking Cessation. Smoking history: Current every day smoker. Have you smoked in the past 12 months: Yes. Aproximately how many cigarettes per day: 20. Cigars Per Day: 0. Hx Chewing Tobacco Use: No. Initiated information on smoking cessation: Yes. 'Breaking Loose' booklet given : 07/05/19. - Substance & Tx. History. Hx Alcohol Use: Yes. Hx Substance Use : Yes. Substance Use Type: Alcohol, Cocaine. Hx Substance Use Treatment: Yes ( last [facility] 08/02/18 to 08/20/18 [facility],rehab 08/21/18 to 09/03/18). - Substances abused. Crack. Substance route: Smoking. Frequency: Daily. Amount used: 250 dollars. Age of first use: 33. Date of last use: 07/04/19. Alcohol. Substance route: Oral. Frequency: Daily. Amount used: 2 packs of beer/1 pint of whisky. Age of first use: 12. Date of last use: 07/04/19 Medical History: history of removal of lipoma over right side of chest in 2010. Psychiatric History: Patient presents as a poor historian. Patient reports history of multiple psychiatric hospitalizations although can't recall the names of the institutions. As per previous notes patient has been hospitalized at [facility] in [place], [facility], and [facility]. Mr. Rodgers reports a diagnosis of Schizophrenia. Notes and external medical records show past treatment with haldol decanonate and haldol PO. Patient informed of his past treatment with haldol and he stated to instructional writer, " I used to get the haldol shot or by mouth haldol." When asked when was the last time he received haldol decanoante or PO medicatons he responded, " I don't know." Patient mildly irritable. Unwilling to fully cooperate. Stated to instructional writer that he may decide to go home but is not sure. He denies auditory/visul hallucinations, suicidal/homicidal ideation. Physical/Sexual Abuse/Trauma History: denies. Mental Status Exam - Mental Status Exam Alert and Oriented to: Time, Place, Person Cognitive Function: Fair Patient Appearance: Unkempt Mood: Withdrawn, Irritable Affect: Mood Congruent Patient Behavior: Fatigued, Uncooperative Speech Pattern: Clear Voice Loudness: Mildly Soft/Quiet Thought Process: Goal Oriented Thought Disorder: Not Present Hallucinations: Denies Suicidal Ideation: Denies Homicidal Ideation: Denies Insight/Judgement: Poor Sleep: Fair Appetite: Fair Muscle strength/Tone: Normal Gait/Station: Normal Psychiatric Findings - Problem List ([place] 1, 2,3) (1) Substance induced mood disorder Current Visit: Yes Status: Acute (2) Alcohol dependence with uncomplicated withdrawal Current Visit: Yes Status: Acute (3) Cocaine dependence, uncomplicated Current Visit: Yes Status: Acute (4) Cannabis dependence, uncomplicated Current Visit: Yes Status: Chronic (5) Schizophrenia Current Visit: Yes Status: Chronic - Initial Treatment Plan Initial Treatment Plan: Psychoeducation provided. Detoxification in progress. Will order Haldol 5mg HS (patient agreeable in accepting haldol 5mg PO). Benefits and side effects discussed. Verbal consent given.
[2019-07-06] MEDS: THIAMINE HCL 100 MG TABLET (FP) PO SCH (22:25)
[2019-07-06] MEDS: HALOPERIDOL 5 MG TABLET (FP) PO SCH (22:25)
[2019-07-07] MEDS: chlordiazePOXIDE HCL 25 MG CAPSULE PO SCH ×4 (05:49→22:19)
--- NOTE | 2019-07-07 09:13 | PN ---
[facility] CIWA - CIWA Score Nausea/Vomitin-No Nausea/No Vomiting Muscle Tremors: 3 Anxiety: 2 Agitation: 1-Slight > Activity Paroxysmal Sweats: 2 Orientation: 1-Uncertain about Date Tacttile Disturbances: 0-None Auditory Disturbances: 1-Very Mild Visual Disturbances: 0-None Headache: 1-Very Mild CIWA-Ar Total Score: 11 [facility] Progress Note (SOAP) Subjective: 63 years old male admitted on 07/05/19 for alcohol withdrawal sx management treating with librium detox regimen ate breakfast resting in bed limited conversation with staff encourage to attend groups and meetings while in detox Objective: 07/07/19 09:11 Vital Signs Temperature 96.2 F L 07/07/19 06:34 Pulse Rate 58 L 07/07/19 06:34 Respiratory Rate 18 07/07/19 06:34 Blood Pressure 99/60 07/07/19 06:34 O2 Sat by Pulse Oximetry (%) encourage oral fluid and ambulation on hallway discuss risks of immobile Laboratory Last Values WBC 4.9 K/mm3 (4.0-10.0) 07/06/19 07:30 RBC 4.57 M/mm3 (4.00-5.60) 07/06/19 07:30 Hgb 12.4 GM/dL (11.7-16.9) 07/06/19 07:30 Hct 38.9 % (35.4-49) 07/06/19 07:30 MCV 85.1 fl (80-96) 07/06/19 07:30 MCH 27.2 pg (25.7-33.7) 07/06/19 07:30 MCHC 32.0 g/dl (32.0-35.9) 07/06/19 07:30 RDW 14.0 % (11.9-15.9) 07/06/19 07:30 Plt Count 226 K/MM3 (134-434) 07/06/19 07:30 MPV 8.1 fl (7.5-11.1) 07/06/19 07:30 Sodium 139 mmol/L (136-145) 07/06/19 07:30 Potassium 4.1 mmol/L (3.5-5.1) 07/06/19 07:30 Chloride 106 mmol/L (98-107) 07/06/19 07:30 Carbon Dioxide 29 mmol/L (21-32) 07/06/19 07:30 Anion Gap 5 MMOL/L (8-16) L 07/06/19 07:30 BUN 11.5 mg/dL (7-18) 07/06/19 07:30 Creatinine 1.0 mg/dL (0.55-1.3) 07/06/19 07:30 Est GFR (CKD-EPI)AfAm 91.13 07/06/19 07:30 Est GFR (CKD-EPI)NonAf 78.63 07/06/19 07:30 Random Glucose 94 mg/dL (74-106) 07/06/19 07:30 Calcium 8.3 mg/dL (8.5-10.1) L 07/06/19 07:30 Total Bilirubin 0.4 mg/dL (0.2-1) 07/06/19 07:30 AST 26 U/L (15-37) 07/06/19 07:30 ALT 22 U/L (13-61) 07/06/19 07:30 Alkaline Phosphatase 124 U/L (45-117) H 07/06/19 07:30 Total Protein 7.0 g/dl (6.4-8.2) 07/06/19 07:30 Albumin 3.5 g/dl (3.4-5.0) 07/06/19 07:30 RPR Titer Nonreactive (NONREACTIVE) 07/06/19 07:30 lab noted 07/07/19 09:11 Assessment: 07/07/19 09:13 alcohol withdrawal Plan: librium regimen
[2019-07-07] MEDS: NICOTINE 21 MG/24 HOURS TOPICAL PATCH TD SCH (11:01)
[2019-07-07] MEDS: PRENATAL VITAMINS W/ FOLIC ACID TABLET (FP) PO SCH (11:02)
[2019-07-07 17:11] LABS: PH,URINE 5.5 (5.0-8.0); URINE APPEARANCE CLEAR; URINE BILIRUBIN NEGATIVE (NEGATIVE); URINE COLOR YELLOW; URINE GLUCOSE (UA) NEGATIVE (NEGATIVE); URINE KETONE TRACE (NEGATIVE); URINE LEUK ESTERASE NEGATIVE (NEGATIVE); URINE NITRITE NEGATIVE (NEGATIVE); URINE PROTEIN NEGATIVE (NEGATIVE); URINE UROBILINOGEN 0.2 mg/dL (0.2-1.0)
[2019-07-07] MEDS: HALOPERIDOL 5 MG TABLET (FP) PO SCH (22:19)
[2019-07-07] MEDS: THIAMINE HCL 100 MG TABLET (FP) PO SCH (22:19)
[2019-07-08] MEDS ORDERED: chlordiazePOXIDE HCL 10 MG CAPSULE PO PRN
[2019-07-08] MEDS: chlordiazePOXIDE HCL 10 MG CAPSULE PO SCH ×4 (05:49→22:29)
[2019-07-08] MEDS: PRENATAL VITAMINS W/ FOLIC ACID TABLET (FP) PO SCH (10:24)
[2019-07-08] MEDS: NICOTINE 21 MG/24 HOURS TOPICAL PATCH TD SCH (10:24)
--- NOTE | 2019-07-08 12:44 | PN ---
[facility] CIWA - CIWA Score Nausea/Vomitin-No Nausea/No Vomiting Muscle Tremors: 2 Anxiety: 2 Agitation: 2 Paroxysmal Sweats: 1-Minimal Palms Moist Orientation: 0-Oriented Tacttile Disturbances: 0-None Auditory Disturbances: 0-None Visual Disturbances: 0-None Headache: 1-Very Mild CIWA-Ar Total Score: 8 [facility] Progress Note (SOAP) Subjective: 63 years old male admitted on 07/05/19 for alcohol withdrawal sx management treating with librium detox regimen ate breakfast and lunch in room resting in bed encourage support networking with peers Objective: 07/08/19 12:43 Vital Signs Temperature 96.1 F L 07/08/19 09:35 Pulse Rate 86 07/08/19 09:35 Respiratory Rate 18 07/08/19 09:35 Blood Pressure 110/63 07/08/19 09:35 O2 Sat by Pulse Oximetry (%) Laboratory Last Values WBC 4.9 K/mm3 (4.0-10.0) 07/06/19 07:30 RBC 4.57 M/mm3 (4.00-5.60) 07/06/19 07:30 Hgb 12.4 GM/dL (11.7-16.9) 07/06/19 07:30 Hct 38.9 % (35.4-49) 07/06/19 07:30 MCV 85.1 fl (80-96) 07/06/19 07:30 MCH 27.2 pg (25.7-33.7) 07/06/19 07:30 MCHC 32.0 g/dl (32.0-35.9) 07/06/19 07:30 RDW 14.0 % (11.9-15.9) 07/06/19 07:30 Plt Count 226 K/MM3 (134-434) 07/06/19 07:30 MPV 8.1 fl (7.5-11.1) 07/06/19 07:30 Sodium 139 mmol/L (136-145) 07/06/19 07:30 Potassium 4.1 mmol/L (3.5-5.1) 07/06/19 07:30 Chloride 106 mmol/L (98-107) 07/06/19 07:30 Carbon Dioxide 29 mmol/L (21-32) 07/06/19 07:30 Anion Gap 5 MMOL/L (8-16) L 07/06/19 07:30 BUN 11.5 mg/dL (7-18) 07/06/19 07:30 Creatinine 1.0 mg/dL (0.55-1.3) 07/06/19 07:30 Est GFR (CKD-EPI)AfAm 91.13 07/06/19 07:30 Est GFR (CKD-EPI)NonAf 78.63 07/06/19 07:30 Random Glucose 94 mg/dL (74-106) 07/06/19 07:30 Calcium 8.3 mg/dL (8.5-10.1) L 07/06/19 07:30 Total Bilirubin 0.4 mg/dL (0.2-1) 07/06/19 07:30 AST 26 U/L (15-37) 07/06/19 07:30 ALT 22 U/L (13-61) 07/06/19 07:30 Alkaline Phosphatase 124 U/L (45-117) H 07/06/19 07:30 Total Protein 7.0 g/dl (6.4-8.2) 07/06/19 07:30 Albumin 3.5 g/dl (3.4-5.0) 07/06/19 07:30 Urine Color Yellow 07/07/19 13:10 Urine Appearance Clear 07/07/19 13:10 Urine pH 5.5 (5.0-8.0) 07/07/19 13:10 Ur Specific [place] 1.023 (1.010-1.035) 07/07/19 13:10 Urine Protein Negative (NEGATIVE) 07/07/19 13:10 Urine Glucose (UA) Negative (NEGATIVE) 07/07/19 13:10 Urine Ketones Trace (NEGATIVE) H 07/07/19 13:10 Urine Blood Negative (NEGATIVE) 07/07/19 13:10 Urine Nitrite Negative (NEGATIVE) 07/07/19 13:10 Urine Bilirubin Negative (NEGATIVE) 07/07/19 13:10 Urine Urobilinogen 0.2 mg/dL (0.2-1.0) 07/07/19 13:10 Ur Leukocyte Esterase Negative (NEGATIVE) 07/07/19 13:10 RPR Titer Nonreactive (NONREACTIVE) 07/06/19 07:30 lab noted Assessment: 07/08/19 12:44 alcohol withdrawal Plan: libirum regimen
[2019-07-08] MEDS: THIAMINE HCL 100 MG TABLET (FP) PO SCH (22:29)
[2019-07-08] MEDS: HALOPERIDOL 5 MG TABLET (FP) PO SCH (22:29)
[2019-07-09] MEDS: chlordiazePOXIDE HCL 10 MG CAPSULE PO SCH ×2 (05:39→17:42)
[2019-07-09] MEDS: PRENATAL VITAMINS W/ FOLIC ACID TABLET (FP) PO SCH (10:23)
[2019-07-09] MEDS: NICOTINE 21 MG/24 HOURS TOPICAL PATCH TD SCH (10:23)
--- NOTE | 2019-07-09 12:19 | PN ---
S CIWA - CIWA Score Nausea/Vomitin-No Nausea/No Vomiting Muscle Tremors: 1-None Visible, but [place] Anxiety: 2 Agitation: 0-Normal Activity Paroxysmal Sweats: 1-Minimal Palms Moist Orientation: 0-Oriented Tacttile Disturbances: 0-None Auditory Disturbances: 0-None Visual Disturbances: 0-None Headache: 0-None Present CIWA-Ar Total Score: 4 [facility] Progress Note (SOAP) Subjective: 63 years old male admitted on 07/05/19 for alcohol withdrawal sx management treating with librium detox regimen feeling better today less tremor discuss aftercare with staff waiting for [facility] acceptance Objective: 07/09/19 12:26 Vital Signs Temperature 97.1 F L 07/09/19 09:07 Pulse Rate 62 07/09/19 09:07 Respiratory Rate 18 07/09/19 09:07 Blood Pressure 102/59 L 07/09/19 09:07 O2 Sat by Pulse Oximetry (%) Laboratory Last Values WBC 4.9 K/mm3 (4.0-10.0) 07/06/19 07:30 RBC 4.57 M/mm3 (4.00-5.60) 07/06/19 07:30 Hgb 12.4 GM/dL (11.7-16.9) 07/06/19 07:30 Hct 38.9 % (35.4-49) 07/06/19 07:30 MCV 85.1 fl (80-96) 07/06/19 07:30 MCH 27.2 pg (25.7-33.7) 07/06/19 07:30 MCHC 32.0 g/dl (32.0-35.9) 07/06/19 07:30 RDW 14.0 % (11.9-15.9) 07/06/19 07:30 Plt Count 226 K/MM3 (134-434) 07/06/19 07:30 MPV 8.1 fl (7.5-11.1) 07/06/19 07:30 Sodium 139 mmol/L (136-145) 07/06/19 07:30 Potassium 4.1 mmol/L (3.5-5.1) 07/06/19 07:30 Chloride 106 mmol/L (98-107) 07/06/19 07:30 Carbon Dioxide 29 mmol/L (21-32) 07/06/19 07:30 Anion Gap 5 MMOL/L (8-16) L 07/06/19 07:30 BUN 11.5 mg/dL (7-18) 07/06/19 07:30 Creatinine 1.0 mg/dL (0.55-1.3) 07/06/19 07:30 Est GFR (CKD-EPI)AfAm 91.13 07/06/19 07:30 Est GFR (CKD-EPI)NonAf 78.63 07/06/19 07:30 Random Glucose 94 mg/dL (74-106) 07/06/19 07:30 Calcium 8.3 mg/dL (8.5-10.1) L 07/06/19 07:30 Total Bilirubin 0.4 mg/dL (0.2-1) 07/06/19 07:30 AST 26 U/L (15-37) 07/06/19 07:30 ALT 22 U/L (13-61) 07/06/19 07:30 Alkaline Phosphatase 124 U/L (45-117) H 07/06/19 07:30 Total Protein 7.0 g/dl (6.4-8.2) 07/06/19 07:30 Albumin 3.5 g/dl (3.4-5.0) 07/06/19 07:30 Urine Color Yellow 07/07/19 13:10 Urine Appearance Clear 07/07/19 13:10 Urine pH 5.5 (5.0-8.0) 07/07/19 13:10 Ur Specific [place] 1.023 (1.010-1.035) 07/07/19 13:10 Urine Protein Negative (NEGATIVE) 07/07/19 13:10 Urine Glucose (UA) Negative (NEGATIVE) 07/07/19 13:10 Urine Ketones Trace (NEGATIVE) H 07/07/19 13:10 Urine Blood Negative (NEGATIVE) 07/07/19 13:10 Urine Nitrite Negative (NEGATIVE) 07/07/19 13:10 Urine Bilirubin Negative (NEGATIVE) 07/07/19 13:10 Urine Urobilinogen 0.2 mg/dL (0.2-1.0) 07/07/19 13:10 Ur Leukocyte Esterase Negative (NEGATIVE) 07/07/19 13:10 RPR Titer Nonreactive (NONREACTIVE) 07/06/19 07:30 lab noted Assessment: 07/09/19 12:26 alcohol withdrawal Plan: librium regimen
[2019-07-09] MEDS: HALOPERIDOL 5 MG TABLET (FP) PO SCH (22:40)
[2019-07-09] MEDS: THIAMINE HCL 100 MG TABLET (FP) PO SCH (22:40)
[2019-07-10] MEDS ORDERED: chlordiazePOXIDE HCL 10 MG CAPSULE PO ONE (05:00)
--- NOTE | 2019-07-10 10:46 | DS ---
[facility] Detox Discharge Summary Admission Date: 07/05/19 Discharge Date: 07/10/19 - History Present History: Alcohol Dependence, Cannabis Dependence, Cocaine Dependence Additional Comments: Patient stable, tolerated detox well. Follow up with primary care provider and after care at [facility]. - Physical Exam Results Vital Signs: Vital Signs Temperature 97.0 F L 07/10/19 09:11 Pulse Rate 68 07/10/19 09:11 Respiratory Rate 18 07/10/19 09:11 Blood Pressure 97/61 07/10/19 09:11 O2 Sat by Pulse Oximetry (%) Pertinent Admission Physical Exam Findings: Aox3 no acute distress EENT WNL No adventitious breath sounds full ROM, ambulates independently Vital Signs Temperature 97.0 F L 07/10/19 09:11 Pulse Rate 68 07/10/19 09:11 Respiratory Rate 18 07/10/19 09:11 Blood Pressure 97/61 07/10/19 09:11 O2 Sat by Pulse Oximetry (%) Laboratory Last Values WBC 4.9 K/mm3 (4.0-10.0) 07/06/19 07:30 RBC 4.57 M/mm3 (4.00-5.60) 07/06/19 07:30 Hgb 12.4 GM/dL (11.7-16.9) 07/06/19 07:30 Hct 38.9 % (35.4-49) 07/06/19 07:30 MCV 85.1 fl (80-96) 07/06/19 07:30 MCH 27.2 pg (25.7-33.7) 07/06/19 07:30 MCHC 32.0 g/dl (32.0-35.9) 07/06/19 07:30 RDW 14.0 % (11.9-15.9) 07/06/19 07:30 Plt Count 226 K/MM3 (134-434) 07/06/19 07:30 MPV 8.1 fl (7.5-11.1) 07/06/19 07:30 Sodium 139 mmol/L (136-145) 07/06/19 07:30 Potassium 4.1 mmol/L (3.5-5.1) 07/06/19 07:30 Chloride 106 mmol/L (98-107) 07/06/19 07:30 Carbon Dioxide 29 mmol/L (21-32) 07/06/19 07:30 Anion Gap 5 MMOL/L (8-16) L 07/06/19 07:30 BUN 11.5 mg/dL (7-18) 07/06/19 07:30 Creatinine 1.0 mg/dL (0.55-1.3) 07/06/19 07:30 Est GFR (CKD-EPI)AfAm 91.13 07/06/19 07:30 Est GFR (CKD-EPI)NonAf 78.63 07/06/19 07:30 Random Glucose 94 mg/dL (74-106) 07/06/19 07:30 Calcium 8.3 mg/dL (8.5-10.1) L 07/06/19 07:30 Total Bilirubin 0.4 mg/dL (0.2-1) 07/06/19 07:30 AST 26 U/L (15-37) 07/06/19 07:30 ALT 22 U/L (13-61) 07/06/19 07:30 Alkaline Phosphatase 124 U/L (45-117) H 07/06/19 07:30 Total Protein 7.0 g/dl (6.4-8.2) 07/06/19 07:30 Albumin 3.5 g/dl (3.4-5.0) 07/06/19 07:30 Urine Color Yellow 07/07/19 13:10 Urine Appearance Clear 07/07/19 13:10 Urine pH 5.5 (5.0-8.0) 07/07/19 13:10 Ur Specific [place] 1.023 (1.010-1.035) 07/07/19 13:10 Urine Protein Negative (NEGATIVE) 07/07/19 13:10 Urine Glucose (UA) Negative (NEGATIVE) 07/07/19 13:10 Urine Ketones Trace (NEGATIVE) H 07/07/19 13:10 Urine Blood Negative (NEGATIVE) 07/07/19 13:10 Urine Nitrite Negative (NEGATIVE) 07/07/19 13:10 Urine Bilirubin Negative (NEGATIVE) 07/07/19 13:10 Urine Urobilinogen 0.2 mg/dL (0.2-1.0) 07/07/19 13:10 Ur Leukocyte Esterase Negative (NEGATIVE) 07/07/19 13:10 RPR Titer Nonreactive (NONREACTIVE) 07/06/19 07:30 - Treatment Hospital Course: Detox Protocol Followed, Detoxed Safely, Responded well Patient has Accepted a Rehab Referral to: [facility] - Medication Discharge Medications: Ambulatory Orders Haloperidol Decanoate [Haldol Decanoate 100] 100 mg IM MONTHLY #1 ampul Haloperidol [Haldol -] 5 mg PO DAILY #30 tablet 08/22/18 - Diagnosis (1) Alcohol dependence with uncomplicated withdrawal Current Visit: Yes Status: Acute (2) Cocaine dependence, uncomplicated Current Visit: Yes Status: Acute (3) Cannabis dependence, uncomplicated Current Visit: Yes Status: Chronic (4) Schizophrenia Current Visit: Yes Status: Chronic (5) No natural teeth Current Visit: No Status: Acute (6) Nicotine dependence Current Visit: No Status: Chronic Qualifiers: Nicotine product type: cigarettes Substance use status: in withdrawal Qualified Code(s): F17.213 - Nicotine dependence, cigarettes, with withdrawal - AMA Did Patient Leave Against Medical Advice: No
[2019-07-10] MEDS: NICOTINE 21 MG/24 HOURS TOPICAL PATCH TD SCH (12:27)
[2019-07-10] MEDS: PRENATAL VITAMINS W/ FOLIC ACID TABLET (FP) PO SCH (12:27)
[2019-07-10 18:12] VITALS: BP 124/75; PULSE 76; TEMP 98.5
== END 2019-07-10 18:45 | disposition other institution (70) | DRG 897 ==
LOC: YASAS 12:00 → Y3N 19:31
PROVIDERS: ADMIT Allergy & Immunology; ATTEND Allergy & Immunology
PROC: HZ2ZZZZ Detoxification Services for Substance Abuse Treatment (ICD-10-PCS; principal; 2019-07-05)
DX: F10.230 Alcohol dependence with withdrawal, uncomplicated (principal); F14.20 Cocaine dependence, uncomplicated; F12.20 Cannabis dependence, uncomplicated; F17.210 Nicotine dependence, cigarettes, uncomplicated; F20.9 Schizophrenia, unspecified; K00.0 Anodontia
CPT/HCPCS: 36415; 80053; 81003; 85027; 86593

== ENCOUNTER 2019-07-10 18:46 | Inpatient (IN) | payer OTHER ==
--- NOTE | 2019-07-10 15:30 | HP ---
[facility] Re[facility] Assess/Revision - Admission History Admitted to Rehab from: [facility] Date of Admission to Rehab: 07/10/2019 - Findings Detox History & Physical reviewed: Yes Concur with findings: Yes Inpatient Rehab Admission - Rehab Decision to Admit Inpatient rehab admission?: Yes - Initial Determination Are CD services needed?: Yes Free of communicable disease: Yes Not in need of hospitalization: Yes - Rehab Admission Criteria Previous failed treatment: Yes Poor recovery environment: Yes Comorbidities: Yes Lacks judgement: Yes Patient is meeting Inpatient Rehab admission criteria:: Yes
[~2019-07-10 18:46] MED LIST: ACETAMINOPHEN 325 MG TABLET (FP) PO PRN; IBUPROFEN 400 MG TABLET (FP) PO PRN; LOPERAMIDE HCL 2 MG CAPSULE PO PRN; MAG HYDROX/AL HYDROX/SIMETH 30 ML UNIT-DOSE CUP PO PRN; MAGNESIUM CITRATE 300 ML BOTTLE PO PRN; MAGNESIUM HYDROX 2400MG/30ML ORAL SUSPENSION 30 ML CUP PO PRN; MENTHOL/PHENOL 1 EACH UD MM PRN; NICOTINE POLACRILEX 2 MG GUM BUC PRN; P-EPHED 60MG/TRIPROLIDI 2.5MG TABLET PO PRN; guaiFENesin 200 MG/10 ML 10 ML UNIT-DOSE CUPS PO PRN
[2019-07-10] MEDS: THIAMINE HCL 100 MG TABLET (FP) PO SCH (21:44)
--- NOTE | 2019-07-11 09:36 | PN ---
[facility] Progress Note Note: This 63 years old male with alcohol and cocaine dependence. Transferred from 07/10/2019 after completing detox. Has hx of Schizophrenia, psych re-consult pending. Patient is known to [facility] due to previous admissions. ROS: states " I feel tired", denies shakes, sweating and chills. Vital Signs Temperature 97.3 F L 07/11/19 06:41 Pulse Rate 70 07/11/19 06:41 Respiratory Rate 18 07/11/19 06:41 Blood Pressure 103/63 07/11/19 06:41 O2 Sat by Pulse Oximetry (%) PE: alert and oriented x 3 in nad conversation minimal-denies si/hi +perrla,eoms intact bl ext full rom, amb ad sherri b/l middle fingers with mild swelling, patient state this is chronic due to old foot ball injury-denies pain and reduced rom of fingers A/P: Alcohol/cocaine dependence schizophrenia continue meds psych re-eval pending encouraged oral fluids monitor clinically
[2019-07-11] MEDS: PRENATAL VITAMINS W/ FOLIC ACID TABLET (FP) PO SCH (10:50)
[2019-07-11] MEDS: NICOTINE 14 MG/24 HOURS TOPICAL PATCH TD SCH (10:59)
--- NOTE | 2019-07-11 13:09 | CONSULT ---
[facility] Psychiatric Consult - Data Date of interview: 07/11/19 Admission source: Self-referred Identifying data: Mr Rodgers is a 63 years old single , father of 2 daughters, unemployed receving SSI, living with his brother admitted from detox on 07/10/19 for inpatient rehabilitation for alcohol and cocaine Substance Abuse History: Reports history of alcohol and cocaine use. Refer to addiction counselor's summary for further information Medical History: Unremarkable except for history of removal of lipoma over right side of chest in 2010. Smokes cigarettes 1 ppd Psychiatric History: Patient is well known to this facility from multiple previous admissions and most recently seen by BLANCA Mccall on 07/06/19. Historical narrative remains consistent. He reports that his first psychiatric contact was at age 19 when he was admitted to [facility] and diagnosed with Paranoid Schizophrenia. Reports multiple subsequent admissions to various facilities including [facility] in [place], [facility], [facility], [facility]. Reports receiving psychiatric treatment at [facility] at [address] [place] [address] in the [phone]. He is currently prescribed Haldol Decanoate. [facility] called and confirmed that patient is on Haldol Decanoate 100 mg last given on and Cogentin 1 mg/day. Denies previous suicidal attempt. At present, denies experiencing psychotic symptoms, S/H ideations. However, reports sleeping poorly Physical/Sexual Abuse/Trauma History: Denies history of emotional, physical or sexual abuse as well as Dv relationship Additional Comment: Reports history of 3 previous arrests on charges of drug possession. Denies being on probation at present Mental Status Exam - Mental Status Exam Alert and Oriented to: Time, Place, Person Cognitive Function: Fair Patient Appearance: Disheveled Mood: Hopeful, Euthymic Patient Behavior: Cooperative Speech Pattern: Clear Voice Loudness: Normal Thought Process: Intact, Goal Oriented Thought Disorder: Not Present Hallucinations: Denies Suicidal Ideation: Denies Homicidal Ideation: Denies Insight/Judgement: Fair Sleep: Poorly Appetite: Good Muscle strength/Tone: Normal Gait/Station: Normal Psychiatric Findings - Problem List ([place] 1, 2,3) (1) Paranoid schizophrenia Current Visit: No Status: Chronic (2) Substance-induced sleep disorder Current Visit: No Status: Acute (3) Alcohol dependence Current Visit: Yes Status: Acute (4) Cocaine dependence Current Visit: Yes Status: Acute (5) Nicotine dependence Current Visit: No Status: Chronic Qualifiers: Nicotine product type: cigarettes Substance use status: in withdrawal Qualified Code(s): F17.213 - Nicotine dependence, cigarettes, with withdrawal - Initial Treatment Plan Initial Treatment Plan: 1) Continue Cogentin 1 mg po daily. 2) Haldol Decanoatec 100mg IM to be administered on 07/17/19. 3) Continue inpatient rehabilitation
[2019-07-11] MEDS: BENZTROPINE MESYLATE 1 MG TABLET (FP) PO SCH (14:49)
[2019-07-11] MEDS: THIAMINE HCL 100 MG TABLET (FP) PO SCH (21:15)
[2019-07-11] MEDS: MELATONIN 5 MG TABLETS PO PRN (21:15)
[2019-07-12] MEDS: NICOTINE 14 MG/24 HOURS TOPICAL PATCH TD SCH (09:32)
[2019-07-12] MEDS: BENZTROPINE MESYLATE 1 MG TABLET (FP) PO SCH (09:32)
[2019-07-12] MEDS: PRENATAL VITAMINS W/ FOLIC ACID TABLET (FP) PO SCH (09:32)
[2019-07-12] MEDS: THIAMINE HCL 100 MG TABLET (FP) PO SCH (21:11)
[2019-07-12] MEDS: MELATONIN 5 MG TABLETS PO PRN (21:11)
[2019-07-13 07:16] VITALS: TEMP 97.8
[2019-07-13] MEDS: PRENATAL VITAMINS W/ FOLIC ACID TABLET (FP) PO SCH (09:27)
[2019-07-13] MEDS: BENZTROPINE MESYLATE 1 MG TABLET (FP) PO SCH (09:27)
[2019-07-13] MEDS: NICOTINE 14 MG/24 HOURS TOPICAL PATCH TD SCH (09:27)
[2019-07-13] MEDS: MELATONIN 5 MG TABLETS PO PRN (21:23)
[2019-07-13] MEDS: THIAMINE HCL 100 MG TABLET (FP) PO SCH (21:23)
[2019-07-14 06:51] VITALS: BP 109/60; PULSE 57
[2019-07-14] MEDS: NICOTINE 14 MG/24 HOURS TOPICAL PATCH TD SCH (10:11)
[2019-07-14] MEDS: PRENATAL VITAMINS W/ FOLIC ACID TABLET (FP) PO SCH (10:11)
[2019-07-14] MEDS: BENZTROPINE MESYLATE 1 MG TABLET (FP) PO SCH (10:11)
--- NOTE | 2019-07-14 10:35 | DS ---
[facility] Rehab Discharge Summary - [facility] Rehab Discharge Summary Admission Date: 07/10/19 Discharge Date: 07/14/19 - History Present History: Alcohol dependence, Cocaine dependence - Discharge Physical Exam Vital Signs: Vital Signs Temperature 97.8 F 07/14/19 06:51 Pulse Rate 57 L 07/14/19 06:51 Respiratory Rate 18 07/14/19 06:51 Blood Pressure 109/60 07/14/19 06:51 O2 Sat by Pulse Oximetry (%) - Medication Discharge Medications: Ambulatory Orders Haloperidol Decanoate [Haldol Decanoate 100] 100 mg IM MONTHLY #1 ampul Haloperidol [Haldol -] 5 mg PO DAILY #30 tablet 08/22/18 - Medication-Assisted Treatment (MAT) Medication-Assisted Treatment (MAT): No MAT Follow-up Referral: PATIENT REQUESTED TO SIGN OUT AMA AFTER HIS TRANSFER TO [facility] NOT ACCEPTED. PATIENT ENCOURAGED TO STAY IN TREATMENT AND COMPLETE REHAB BUT HE REFUSED. PATIENT STATED TO PROVIDER " I WANT TO GO HOME". PATIENT DUE FOR HALDOL INJECTION ON 07/17/2019 AND MEDICALLY ADVISED TO STAY IN TREATMENT TO RECEIVE DOSE OF MEDICATION BUT HE REFUSED. PATIENT STATES " I HAVE ALL MY MEDICATIONS IN MY PROPERTY". PATIENT DENIES SI/HI, HE DENIES CHEST PAIN, SOB, SWEATS AND SHAKES. PATIENT EXPLAINED RISK FACTORS OF SIGNING OUT AMA, REOCCURRENCE AND POTENTIAL OVERDOSE, BUT HE REFUSED TO STAY IN TREATMENT. PATIENT CONTINUED WITH AMA PROCESS AND SIGNED OUT OF TREATMENT. Vital Signs Temperature 97.8 F 07/14/19 06:51 Pulse Rate 57 L 07/14/19 06:51 Respiratory Rate 18 07/14/19 06:51 Blood Pressure 109/60 07/14/19 06:51 O2 Sat by Pulse Oximetry (%) PE ALERT AND ORIENTED X 3 SKIN WARM AND DRY +PERRLA, EOMS INTACT BL GI ND, NT EXT FULL ROM, AMB AD EUNICE NO TREMORS DENIES SI/HI A/P: ETOH DEPENDENCE SCHIZOPHRENIA PATIENT SIGNED OUT AMA - Discharge Instructions Diet, activity, other medical instructions: Diet: REG TOLERATED Activity: TOLERATED Other medical instructions: FOLLOW UP WITH PCP RECOMMENDED - Follow-up Referral Minutes to complete discharge: 30 - AMA Did Patient Leave Against Medical Advice: Yes
[2019-07-17] MEDS ORDERED: HALOPERIDOL DECANOATE 100 MG/ML IM ONE (10:00)
== END 2019-07-14 10:30 | disposition left against medical advice (07) | DRG 894 ==
LOC: YASAS 18:46 → Y3W 18:47
PROVIDERS: ADMIT Neuromusculoskeletal Medicine & OMM; ATTEND Neuromusculoskeletal Medicine & OMM
PROC: HZ42ZZZ Group Counseling for Substance Abuse Treatment, Cognitive-Behavioral (ICD-10-PCS; principal; 2019-07-10)
DX: F10.20 Alcohol dependence, uncomplicated (principal); F20.0 Paranoid schizophrenia; F12.20 Cannabis dependence, uncomplicated; F17.213 Nicotine dependence, cigarettes, with withdrawal; F19.24 Other psychoactive substance dependence with psychoactive substance-induced mood disorder

== ENCOUNTER 2020-04-05 08:48 | Inpatient (IN) | payer OTHER ==
--- OUTSIDE RECORDS SUMMARY | 2020-04-05 09:05 | XMS ---
:1955 Author Organization [facility] Care Team Providers Name Role Phone [id number], [id number] Unavailable Unavailable DALLIN CHILDRESS MD Unavailable Unavailable MD GRANT Unavailable Unavailable MD OSEI Unavailable Unavailable Re-disclosure Warning The records that you are about to access may contain information from federally- assisted alcohol or drug abuse programs. If such information is present, then the following federally mandated warning applies: This information has been disclosed to you from records protected by federal confidentiality rules (42 CFR part 2). The federal rules prohibit you from making any further disclosure of this information unless further disclosure is expressly permitted by the written consent of the person to whom it pertains or as otherwise permitted by 42 CFR part 2. A general authorization for the release of medical or other information is NOT sufficient for this purpose. The Federal rules restrict any use of the information to criminally investigate or prosecute any alcohol or drug abuse patient.The records that you are about to access may contain highly sensitive health information, the redisclosure of which is protected by Article 27-F of the [facility] Public Health law. If you continue you may haveaccess to information: Regarding HIV / AIDS; Provided by facilities licensed or operated by the [facility] Office of Mental Health; or Provided by the [facility] Office for People With Developmental Disabilities. If such information is present, then the following [facility] mandated warning applies: This information has been disclosed to you from confidential records which are protected by state law. State law prohibits you from making any further disclosure of this information without the specific written consent of the person to whom it pertains, or as otherwise permitted by law. Any unauthorized further disclosure in violation of state law may result in a fine or long-term sentence or both. A general authorization for the release of medical or other information is NOT sufficient authorization for further disclosure. Encounters Encounter Providers Location Date Indications Data Source(s ) Inpatient Attender: FARRUKH STV-1D 07/23/2019 [facility] CHRISSIEANYANAttender: 06:03:00 PM [facility] ERNST EST - ALOEZOSAdmitter: 08/02/2019 DALLIN CHILDRESS 11:28:00 PM EST Patient discharged. Attender: 07/23/2019 [facility] [id number] 06:03:00 PM EST [id number] 07/23/2019 [facility] 11:02:00 AM EST - Hospita [facility] 07/24/2019 11:28:00 PM EST Patient discharged. Attender: [id number] 2019 11:02:00 [facility]_6766 AM EST Hospital Attender: [id number] 2015 02:41:00 [facility]_6766 PM EDT Hospital Attender: [id number] 2015 [facility]66 PM EDT Hospital Attender: [id number] 2011 04:46:00 [facility]_6766 PM EDT Hospital Attender: [id number] 2010 05:40:00 [facility]_6766 PM EDT Hospital Attender: [id number] 2003 07:00:00 [facility]6766 PM EST Hospital Attender: [id number] 2003 05:00:00 [facility]6766 PM EST Hospital Attender: [id number] 2003 03:00:00 [facility]_6766 PM EST Hospital Attender: [id number] 2003 03:00:00 [facility] LONNIET_6766 PM EST Hospital Attender: [id number] 2003 01:00:00 [facility] LONNIET_6766 PM EST Hospital Insurance Providers Payer name Policy type Policy ID Covered Covered alliance party's Policy P sarah / Coverage alliance party ID relationship to Quiroz Inf ormation type quiroz BENJAMIN MEDICARE [id number] SP [id number] HEALTH FIRST [id number] SP [id number] MEDICARE MEDICAID [id number] SP [id number] HEALTH FIRST [id number] SP [id number] 75 MEDICARE SELF PAY 0000 Self 0000 MEDICAID INP [id number] Self [id number] Q [id number] MDM HEALTH [id number] Self [id number] FIRST MEDICARE [id number] SP [id number] PART B HEALTH FIRST [id number] SP [id number] Q Problems, Conditions, and Diagnoses Code Display Name Description Problem Type Effective Dates Data Source(s) 304.21 COCAINE COCAINE Diagnosis 07/19/1998 [facility] DEPENDENCE DEPENDENCE, 10:15:00 AM EST Hospital CONTINUOUS USE CONTINUOUS Vital Signs ID Date Data Source UNK Name Value Range Interpretation Code Description Data Source(s) Diastolic blood 65 mmHg 65 mmHg [facility] Systolic blood 138 mmHg 138 mmHg [facility] Respiratory rate 18 bpm 18 bpm [facility] Heart rate 70 bpm 70 bpm [facility] Diastolic blood 70 mmHg 70 mmHg [facility] Systolic blood 116 mmHg 116 mmHg [facility] Respiratory rate 18 bpm 18 bpm [facility] Heart rate 67 bpm 67 bpm [facility] Body temperature 98.1 Fahrenheit 98.1 Fahrenhei t [facility] Diastolic blood 70 mmHg 70 mmHg [facility] Systolic blood 114 mmHg 114 mmHg [facility] Respiratory rate 18 bpm 18 bpm [facility] Heart rate 74 bpm 74 bpm [facility] Body temperature 97.3 Fahrenheit 97.3 Fahrenhei t [facility] Diastolic blood 70 mmHg 70 mmHg [facility] Systolic blood 116 mmHg 116 mmHg [facility] Respiratory rate 18 bpm 18 bpm [facility] Heart rate 74 bpm 74 bpm [facility] Body temperature 96.8 Fahrenheit 96.8 Fahrenhei t [facility] Diastolic blood 74 mmHg 74 mmHg [facility] Systolic blood 102 mmHg 102 mmHg [facility] Respiratory rate 18 bpm 18 bpm [facility] Heart rate 78 bpm 78 bpm [facility] Body temperature 96.9 Fahrenheit 96.9 Fahrenh t [facility]
--- NOTE | 2020-04-05 09:11 | BHS.RME ---
Substance Use & Tx History - Substance Use History Alcohol Substance amount: six pack beers Frequency of use: Daily Date of Last Use: 04/04/20 (started age 12) Cocaine-Crack Substance amount: $250 Frequency of use: Daily Substance route: Smoking Date of Last Use: 04/04/20 (started age 33) - Last Treatment Date of last treatment: 10/22-11/06/19 completed detox Treatment type: Substance Use Disorder (IRVING) Where was last treatment: Detox CIWA Nausea/Vomitin-No Nausea/No Vomiting Muscle Tremors: None Anxiety: 0-No Anxiety, at Ease Agitation: 0-Normal Activity Paroxysmal Sweats: No Perspiration Orientation: 0-Oriented Tacttile Disturbances: 0-None Auditory Disturbances: 0-None Visual Disturbances: 0-None Headache: 0-None Present CIWA-Ar Total Score: 0 Treatment Recommendation - Level of Care Level of Care: Outpatient (Patient is in no withdrawals, CIWA=0, SEUN=0 He wishes to go to [facility]. Does not meet criteria for detox.)
[2020-04-05 10:06] VITALS: BMI 21.6
--- NOTE | 2020-04-05 11:40 | HP ---
CIWA Score Nausea/Vomitin-No Nausea/No Vomiting Muscle Tremors: None Anxiety: 0-No Anxiety, at Ease Agitation: 0-Normal Activity Paroxysmal Sweats: No Perspiration Orientation: 0-Oriented Tacttile Disturbances: 0-None Auditory Disturbances: 0-None Visual Disturbances: 0-None Headache: 0-None Present CIWA-Ar Total Score: 0 - Admission Criteria OASAS Guidelines: Admission for Medically Managed Detox: Requires at least one of the followin. CIWA greater than 12 2. Seizures within the past 24 hours 3. Delirium tremens within the past 24 hours 4. Hallucinations within the past 24 hours 5. Acute intervention needed for co occurring medical disorder 6. Acute intervention needed for co occurring psychiatric disorder 7. Severe withdrawal that cannot be handled at a lower level of care (continued vomiting, continued diarrhea, abnormal vital signs) requiring intravenous medication and/or fluids 8. Admitting History and Physical - Admission Chief Complaint: Mr. Rodgers is a 64 yo gentleman who presents to [facility] requesting admission for alcohol use disorder. History of Present Illness: Mr. Rodgers is a 64 yo gentleman who presents to [facility] requesting admission for alcohol use disorder. He would like to go to [facility] after admission here. He was last here in Rehab between October 22 and November 06, 2019. 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 Cocaine-Crack Substance amount: $250 Frequency of use: Daily Substance route: Smoking Date of Last Use: 04/04/20 (started age 33) Nicotine: one pack per day since age 12 y - Last Treatment Date of last treatment: 10/22-11/06/19 completed detox Treatment type: Substance Use Disorder (IRVING) Where was last treatment: Detox History Source: Patient Limitations to Obtaining History: No Limitations - Past Medical History Psych: Yes: Schizophrenia - Past Surgical History Past Surgical History: Yes: None - Smoking History Smoking history: Current every day smoker Have you smoked in the past 12 months: Yes Aproximately how many cigarettes per day: 20 - Alcohol/Substance Use Hx Alcohol Use: Yes - Social History ADL: Independent 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 Loss (50 lbs lost in one year) EENT: reports: No Symptoms Reported, Blurred Vision (wears glasses, not with him today) Respiratory: reports: No Symptoms reported Cardiac: reports: No Symptoms Reported GI: reports: No Symptoms Reported : reports: No Symptoms Reported Musculoskeletal: reports: No Symptoms Reported Integumentary: reports: Other (cyst on chest removed, scar over right brow from prior fall) Endocrine: reports: No Symptoms Reported Hematology: reports: No Symptoms Reported Psychiatric: reports: other (on meds for schizophrenia, has with him today) Patient History - Patient Medical History Hx Anemia: No Hx Asthma: No Hx Chronic Obstructive Pulmonary Disease (COPD): No Hx Cancer: No Hx Cardiac Disorders: No Hx Congestive Heart Failure: No Hx Hypertension: No Hx Hypercholesterolemia: No Hx Pacemaker: No HX Cerebrovascular Accident: No Hx Seizures: No Hx Dementia: No Hx Diabetes: No Hx Gastrointestinal Disorders: No Hx Liver Disease: No Hx Genitourinary Disorders: No Hx Sexually Transmitted Disorders: No Hx Renal Disease (ESRD): No Hx Thyroid Disease: No Hx Human Immunodeficiency Virus (HIV): No (last 2012 negative) Hx Hepatitis C: No Hx Depression: No Hx Suicide Attempt: No Hx Bipolar Disorder: No Hx Schizophrenia: Yes (Hx of paranoid schizophrenia) - Patient Surgical History Past Surgical History: Yes Hx Neurologic Surgery: No Hx Cataract Extraction: No Hx Cardiac Surgery: No Hx Lung Surgery: No Hx Breast Surgery: No Hx Breast Biopsy: No Hx Abdominal Surgery: No Hx Appendectomy: No Hx Cholecystectomy: No Hx Genitourinary Surgery: No Hx Section: No Hx Orthopedic Surgery: No Other Surgical History: removal of lipoma of right chest wall at [facility] 2010 Anesthesia Reaction: No - PPD History Date: 07/07/19 Results: 0 mm - Smoking Cessation Smoking history: Current every day smoker Have you smoked in the past 12 months: Yes Aproximately how many cigarettes per day: 20 Cigars Per Day: 0 Hx Chewing Tobacco Use: No Initiated information on smoking cessation: Yes 'Breaking Loose' booklet given: 04/05/20 Admission Physical Exam [facility] - Vital Signs Vital Signs: Vital Signs - 24 hr 04/05/20 10:05 Temperature 97.5 F L Pulse Rate 76 Respiratory 18 Rate Blood Pressure 122/72 - Physical General Appearance: Yes: No Apparent Distress, Nourished, Thin HEENTM: Yes: EOMI, Hearing grossly Normal, Normocephalic, Normal Voice Respiratory: Yes: Lungs Clear, No Respiratory Distress, No Accessory Muscle Use Neck: Yes: Within Normal Limits, Supple Breast: Yes: Breast Exam Deferred Cardiology: Yes: Regular Rhythm, Regular Rate Abdominal: Yes: Normal Bowel Sounds, Non Tender, Flat, Soft Genitourinary: Yes: Other (deferred) Back: Yes: Normal Inspection Musculoskeletal: Yes: Gait Steady (hx of fall months ago) Extremities: Yes: Within Normal Limits Neurological: Yes: Within Normal Limits Integumentary: Yes: Other (skin growth ? tag left axilla) Cleared for Admission [facility] - Detox or Rehab [facility] Level of Care: Medically Supervised Breathalyzer - Breathalyzer Breathalyzer: 0 Urine Drug Screen - Test Device Lot number: [id number] Expiration date: 10/07/21 - Control Is test valid?: Yes - Results Drug screen NEGATIVE: No Urine drug screen results: [facility]-Cocaine Inpatient Rehab Admission - Rehab Decision to Admit Inpatient rehab admission?: Yes - Initial Determination Are CD services needed?: Yes Free of communicable disease: Yes Not in need of hospitalization: Yes - Rehab Admission Criteria Previous failed treatment: Yes Poor recovery environment: Yes Comorbidities: Yes Lacks judgement: Yes Patient is meeting Inpatient Rehab admission criteria:: Yes
[2020-04-05] MEDS ORDERED: MAG HYDROX/AL HYDROX/SIMETH 30 ML UNIT-DOSE CUP PO PRN (11:48)
[2020-04-05] MEDS ORDERED: MAGNESIUM HYDROX 2400MG/30ML ORAL SUSPENSION 30 ML CUP PO PRN (11:48)
[2020-04-05] MEDS ORDERED: ACETAMINOPHEN 325 MG TABLET (FP) PO PRN (11:48)
[2020-04-05] MEDS ORDERED: guaiFENesin 200 MG/10 ML 10 ML UNIT-DOSE CUPS PO PRN (11:48)
[2020-04-05] MEDS ORDERED: IBUPROFEN 400 MG TABLET (FP) PO PRN (11:48)
[2020-04-05] MEDS ORDERED: LOPERAMIDE HCL 2 MG CAPSULE PO PRN (11:48)
[2020-04-05] MEDS ORDERED: MAGNESIUM CITRATE 300 ML BOTTLE PO PRN (11:48)
[2020-04-05] MEDS ORDERED: P-EPHED 60MG/TRIPROLIDI 2.5MG TABLET PO PRN (11:48)
[2020-04-05] MEDS ORDERED: NICOTINE POLACRILEX 2 MG GUM BUC PRN (11:48)
[2020-04-05] MEDS: hydrOXYzine PAMOATE 25 MG CAPSULE (FP) PO SCH ×3 (14:30→21:39)
[2020-04-05] MEDS: NICOTINE 21 MG/24 HOURS TOPICAL PATCH TD SCH (14:30)
[2020-04-05 14:39] LABS: HEMATOCRIT 41.5 % (35.4-49); HEMOGLOBIN 13.7 GM/dL (11.7-16.9); MCH 28.3 pg (25.7-33.7); MCHC 33.1 g/dl (32.0-35.9); MEAN CELL VOLUME 85.5 fl (80-96); MEAN PLT VOLUME 8.3 fl (7.5-11.1); PLATELET COUNT 182 K/MM3 (134-434); RBC 4.85 M/mm3 (4.00-5.60); RDW 14.6 % (11.9-15.9); WHITE BLOOD COUNT 6.3 K/mm3 (4.0-10.0)
[2020-04-05 14:51] LABS: ALBUMIN 3.9 g/dl (3.4-5.0); BILIRUBIN,TOTAL 0.2 mg/dL (0.2-1); BLOOD UREA NITROGEN 20.8 mg/dL (7-18); CALCIUM 8.7 mg/dL (8.5-10.1); POTASSIUM 4.2 mmol/L (3.5-5.1); TOT PROT 7.6 g/dl (6.4-8.2)
[2020-04-05 15:46] LABS: SICKLE CELL SCREEN NEGATIVE (NEGATIVE)
[2020-04-05] MEDS: THIAMINE HCL 100 MG TABLET (FP) PO SCH (21:39)
[2020-04-05] MEDS: MELATONIN 5 MG TABLETS PO SCH (21:58)
[2020-04-06] MEDS: hydrOXYzine PAMOATE 25 MG CAPSULE (FP) PO SCH ×5 (07:08→21:14)
--- NOTE | 2020-04-06 10:06 | PN ---
S Progress Note Note: Psychiatric nurse practitioner note: Renovator Machine Operator approached patient for psychiatric consultation. Patient observed laying in bed. Patient stated, " My stomach hurts right now. Can we talk later." Psychiatric consultation deferred.
[2020-04-06] MEDS: NICOTINE 21 MG/24 HOURS TOPICAL PATCH TD SCH (10:08)
[2020-04-06] MEDS: PRENATAL VITAMINS W/ FOLIC ACID TABLET (FP) PO SCH (10:08)
[2020-04-06 15:00] LABS: URINE APPEARANCE CLEAR; URINE BILIRUBIN NEGATIVE (NEGATIVE); URINE COLOR YELLOW; URINE GLUCOSE (UA) NEGATIVE (NEGATIVE); URINE KETONE NEGATIVE (NEGATIVE); URINE LEUK ESTERASE NEGATIVE (NEGATIVE); URINE NITRITE NEGATIVE (NEGATIVE); URINE PROTEIN NEGATIVE (NEGATIVE); URINE UROBILINOGEN 0.2 mg/dL (0.2-1.0)
--- NOTE | 2020-04-06 16:30 | CONSULT ---
[facility] Psychiatric Consult - Data Date of interview: 04/06/20 Admission source: [facility] Identifying data: Direct admission to [address] for this 64 y/o male self-referred (at the advice of Moi Rodgers, his brother) for rehabilitation treatment. IRVING issues : crack/cocaine, alcohol, nicotine. Patient is , a father of two, domiciled (lives with brother), unemployed and supported on SSI benefits. Substance Abuse History: Discussed with the patient. IRVING profile as follows : Smoking history: Current every day smoker. Have you smoked in the past 12 months: Yes. Approximately how many cigarettes per day: 20. Cigars Per Day: 0. Hx Chewing Tobacco Use: No. Initiated information on smoking cessation: Yes. 'Breaking Loose' booklet given: 04/05/20. Alcohol. Substance amount: six pack beers. Frequency of use: Daily. Date of Last Use: 04/04/20 (started age 12). No seizure. Blackouts: last was 2 years ago. 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 Cocaine-Crack. Substance amount: $250. Frequency of use: Daily. Substance route: Smoking. Date of Last Use: 04/04/20 (started age 33). Nicotine: one pack per day since age 12 y. - Last Treatment. Date of last treatment: 10/22- 11/06/19 completed detox. Treatment type: Substance Use Disorder (IRVING). Where was last treatment: Detox. History Source: Patient. Limitations to Obtaining History: No Limitations. History of multiple DUD treatment failures. Medical History: History of falls. Antecedent of surgical excision of lipoma (chest wall). Psychiatric History: Patient presents with an extensive history of mental illness (onset at age 19 : auditory hallucinations + paranoid delusions). Diagnosed with Paranoid Schizophrenia. History of multiple psychiatric hospitalizations ([facility], [facility] and [facility]). Mr Rodgers is still receiving OPD care at the [facility] program ([phone]) in the [place]. Patient is on a monthly injection of haloperidol decanoate (150 mg/IM) + cogentin 1 mg/day + trazodone 150 mg/hs. As per brother, Moi Rodgers ([phone] + [phone]), the most recent injection was dispensed on 03/18/20. Patient denies history of suicide attempts. Physical/Sexual Abuse/Trauma History: Patient denies. Additional Comment: Urine drug screen results: MELQUIADES-Cocaine. Noted. Mental Status Exam - Mental Status Exam Alert and Oriented to: Time, Place, Person Cognitive Function: Grossly Intact Patient Appearance: Well Groomed Mood: Withdrawn, Hopeful Affect: Appropriate, Normal Range Patient Behavior: Fatigued, Appropriate, Cooperative Speech Pattern: Clear, Appropriate Voice Loudness: Normal Thought Process: Goal Oriented Thought Disorder: Not Present Hallucinations: Denies Suicidal Ideation: Denies Homicidal Ideation: Denies Insight/Judgement: Poor Sleep: Poorly, Difficulty falling asleep Appetite: Fair, Weight loss (as per self-report) Gait/Station: Normal Psychiatric Findings - Problem List ([place] 1, 2,3) (1) Alcohol dependence with uncomplicated withdrawal Current Visit: Yes Status: Acute (2) Cocaine dependence Current Visit: Yes Status: Chronic (3) Nicotine dependence Current Visit: Yes Status: Chronic Qualifiers: Nicotine product type: cigarettes Substance use status: in withdrawal Qualified Code(s): F17.213 - Nicotine dependence, cigarettes, with withdrawal (4) Schizophrenia Current Visit: Yes Status: Chronic (5) Insomnia Current Visit: Yes Status: Chronic - Initial Treatment Plan Initial Treatment Plan: Records ([facility]) revisited. Contact established with Moi Rodgers, patient's brother, via telephone [phone], for collateral information + verification of medications (with verbal consent of patient). Patient insisted that his sibling be contacted by psychiatrist. History and information about OPD care are confirmed by brother. Falls precautions. Sleep hygiene. Support. Motivational counseling. [employer] will be contacted in the morning. [employer] Supervisor spoke to pharmacist at [facility] ([phone]) : confirmed refills for haldol decanoate 100 mg/im + cogentin 2 mg/day + seroquel 200 mg/hs for July 2019 (prescriber : Dr Leroy Mullins at [phone]) and trazodone 150 mg/hs for October 2019 (Dr Diaz). Medications resumed : cogentin 1 mg po bid (reduced in view of age + potential for cognitive impairment and antichlinergic complication such as urinary retention, blurred vision, dry mouth) + trazodone 50 mg po hs (reduced as a caution for oversedation and falls). Seroquel is held for now (until contact with [facility] and visualization of bottles) in view of falls risk. Patient is in agreement with this plan of care. Consent (verbal) granted for implementation of this plan of care. Observation.
[2020-04-06] MEDS: BENZTROPINE MESYLATE 1 MG TABLET PO SCH (21:14)
[2020-04-06] MEDS: traZODone HCL 50 MG TABLET (FP) PO SCH (21:14)
[2020-04-06] MEDS: MELATONIN 5 MG TABLETS PO SCH (21:14)
[2020-04-06] MEDS: THIAMINE HCL 100 MG TABLET (FP) PO SCH (21:15)
[2020-04-07] MEDS: hydrOXYzine PAMOATE 25 MG CAPSULE (FP) PO SCH ×5 (06:06→21:12)
[2020-04-07] MEDS: BENZTROPINE MESYLATE 1 MG TABLET PO SCH ×2 (09:32→21:12)
[2020-04-07] MEDS: PRENATAL VITAMINS W/ FOLIC ACID TABLET (FP) PO SCH (09:32)
[2020-04-07] MEDS: NICOTINE 21 MG/24 HOURS TOPICAL PATCH TD SCH (09:33)
--- NOTE | 2020-04-07 14:49 | PN ---
[facility] Progress Note Note: Psychiatry Attending's note (follow-up note) : Fitness Services Manager called [employer] for verification of medications. At [phone]. No information : psychiatrist not available. Medications bottles brought to [facility]. Refills dated 01/21/20. Seroquel 100 mg/hs + cogentin 1 mg/bid + trazodone 150 mg/hs. Doses reduced in view of patient's fatigue + proneness to falls. Psychiatry-Liaison will follow if request.
[2020-04-07] MEDS: traZODone HCL 50 MG TABLET (FP) PO SCH (21:12)
[2020-04-07] MEDS: MELATONIN 5 MG TABLETS PO SCH (21:12)
[2020-04-07] MEDS: THIAMINE HCL 100 MG TABLET (FP) PO SCH (21:13)
[2020-04-08] MEDS: hydrOXYzine PAMOATE 25 MG CAPSULE (FP) PO SCH ×5 (07:03→21:18)
[2020-04-08] MEDS: BENZTROPINE MESYLATE 1 MG TABLET PO SCH ×2 (10:06→21:18)
[2020-04-08] MEDS: PRENATAL VITAMINS W/ FOLIC ACID TABLET (FP) PO SCH (10:06)
[2020-04-08] MEDS: NICOTINE 21 MG/24 HOURS TOPICAL PATCH TD SCH (10:06)
[2020-04-08] MEDS: THIAMINE HCL 100 MG TABLET (FP) PO SCH (21:18)
[2020-04-08] MEDS: MELATONIN 5 MG TABLETS PO SCH (21:18)
[2020-04-08] MEDS: traZODone HCL 50 MG TABLET (FP) PO SCH (21:18)
[2020-04-09] MEDS: hydrOXYzine PAMOATE 25 MG CAPSULE (FP) PO SCH ×5 (06:52→21:37)
[2020-04-09] MEDS: BENZTROPINE MESYLATE 1 MG TABLET PO SCH ×2 (10:49→21:37)
[2020-04-09] MEDS: NICOTINE 21 MG/24 HOURS TOPICAL PATCH TD SCH (10:49)
[2020-04-09] MEDS: PRENATAL VITAMINS W/ FOLIC ACID TABLET (FP) PO SCH (10:49)
[2020-04-09] MEDS: traZODone HCL 50 MG TABLET (FP) PO SCH (21:37)
[2020-04-09] MEDS: THIAMINE HCL 100 MG TABLET (FP) PO SCH (21:38)
[2020-04-09] MEDS: MELATONIN 5 MG TABLETS PO SCH (21:38)
[2020-04-10] MEDS: hydrOXYzine PAMOATE 25 MG CAPSULE (FP) PO SCH ×5 (06:16→21:14)
[2020-04-10] MEDS: BENZTROPINE MESYLATE 1 MG TABLET PO SCH ×2 (10:18→21:14)
[2020-04-10] MEDS: NICOTINE 21 MG/24 HOURS TOPICAL PATCH TD SCH (10:18)
[2020-04-10] MEDS: PRENATAL VITAMINS W/ FOLIC ACID TABLET (FP) PO SCH (10:18)
[2020-04-10] MEDS: MELATONIN 5 MG TABLETS PO SCH (21:14)
[2020-04-10] MEDS: traZODone HCL 50 MG TABLET (FP) PO SCH (21:14)
[2020-04-10] MEDS: THIAMINE HCL 100 MG TABLET (FP) PO SCH (21:14)
[2020-04-11] MEDS: hydrOXYzine PAMOATE 25 MG CAPSULE (FP) PO SCH ×5 (06:31→21:31)
[2020-04-11] MEDS: PRENATAL VITAMINS W/ FOLIC ACID TABLET (FP) PO SCH (10:09)
[2020-04-11] MEDS: BENZTROPINE MESYLATE 1 MG TABLET PO SCH ×2 (10:09→21:31)
[2020-04-11] MEDS: NICOTINE 21 MG/24 HOURS TOPICAL PATCH TD SCH (10:10)
[2020-04-11] MEDS: traZODone HCL 50 MG TABLET (FP) PO SCH (21:31)
[2020-04-11] MEDS: MELATONIN 5 MG TABLETS PO SCH (21:31)
[2020-04-11] MEDS: THIAMINE HCL 100 MG TABLET (FP) PO SCH (21:32)
[2020-04-12] MEDS: hydrOXYzine PAMOATE 25 MG CAPSULE (FP) PO SCH (06:20)
[2020-04-12 07:18] VITALS: BP 96/57; PULSE 61; TEMP 97.3
[2020-04-12] MEDS: PRENATAL VITAMINS W/ FOLIC ACID TABLET (FP) PO SCH (09:09)
[2020-04-12] MEDS: BENZTROPINE MESYLATE 1 MG TABLET PO SCH (09:09)
[2020-04-12] MEDS: NICOTINE 21 MG/24 HOURS TOPICAL PATCH TD SCH (09:09)
[2020-04-12] MEDS ORDERED: PT OWN MED DRAWER 7, Y5N ONE (09:11)
--- NOTE | 2020-04-12 09:56 | DS ---
[facility] Rehab Discharge Summary - [facility] Rehab Discharge Summary Admission Date: 04/05/20 Discharge Date: 04/12/20 - History Present History: Alcohol dependence - Discharge Physical Exam Vital Signs: Vital Signs Temperature 97.3 F L 04/12/20 06:07 Pulse Rate 61 04/12/20 06:07 Respiratory Rate 16 04/12/20 06:07 Blood Pressure 96/57 L 04/12/20 06:07 O2 Sat by Pulse Oximetry (%) 98 04/12/20 06:07 Laboratory Tests 04/05/20 04/05/20 04/05/20 09:20 12:00 12:00 WBC 6.3 RBC 4.85 Hgb 13.7 Hct 41.5 MCV 85.5 MCH 28.3 MCHC 33.1 RDW 14.6 Plt Count 182 MPV 8.3 Sickle Cell Screen Negative Sodium 139 Potassium 4.2 Chloride 105 Carbon Dioxide 30 Anion Gap 5 L BUN 20.8 H Creatinine 1.0 Est GFR (CKD-EPI)AfAm 90.50 Est GFR (CKD-EPI)NonAf 78.08 Random Glucose 97 Calcium 8.7 Total Bilirubin 0.2 AST 16 ALT 17 Alkaline Phosphatase 130 H Total Protein 7.6 Albumin 3.9 Urine Color Urine Appearance Urine pH Ur Specific [place] Urine Protein Urine Glucose (UA) Urine Ketones Urine Blood Urine Nitrite Urine Bilirubin Urine Urobilinogen Ur Leukocyte Esterase Syphilis Serology SARS-CoV-2 (PCR) Negative 04/05/20 04/06/20 12:00 09:25 WBC RBC Hgb Hct MCV MCH MCHC RDW Plt Count MPV Sickle Cell Screen Sodium Potassium Chloride Carbon Dioxide Anion Gap BUN Creatinine Est GFR (CKD-EPI)AfAm Est GFR (CKD-EPI)NonAf Random Glucose Calcium Total Bilirubin AST ALT Alkaline Phosphatase Total Protein Albumin Urine Color Yellow Urine Appearance Clear Urine pH 6.0 Ur Specific [place] 1.021 Urine Protein Negative Urine Glucose (UA) Negative Urine Ketones Negative Urine Blood Negative Urine Nitrite Negative Urine Bilirubin Negative Urine Urobilinogen 0.2 Ur Leukocyte Esterase Negative Syphilis Serology Non-reactive SARS-CoV-2 (PCR) ROS: patient denies shakes, headache, alcohol cravings, fever, cough, sob and lethargy. PE: alert and oriented x 3 skin warm and dry +perrla, eoms intact bl car s1s2, rrr resp cta bl, no wheezes or rales ext full rom, amb ad sherri no tremors denies si/hi A/P: alcohol dependence Patient is medically stable for discharge today. Requested to leave early stating "my brother is sick and I want to see him" Aftercare arranged for [facility] outpatient program. - Treatment Discharge Condition: Discharge condition good, Rehabilitated safely, Outpatient referral accepted Hospital Course: Patient requested early discharge today from rehab for alcohol dependence. Patient states " my brother is sick and I need to see him". During course of treatment, patient attended group meetings, evaluated and treated by psych team and participated in 1:1 counseling sessions. Aftercare arranged for [facility] OTP. Patient medically advised to follow up with outpatient treatment to prevent relapse and to follow up with PCP within one week of discharge for follow up and physical exam. Patient verbalized understanding of all information and recommendations provided. Ambulatory Orders Haloperidol Decanoate [Haldol Decanoate 100] 100 mg IM MONTHLY #1 ampul 08/22/18 Trazodone HCl 150 mg PO HS #30 tablet 11/05/19 Benztropine Mesylate [Cogentin -] 2 mg PO BID 04/05/20 Quetiapine Fumarate [Seroquel -] 100 mg PO HS 04/05/20 - Medication Discharge Medications: Ambulatory Orders Haloperidol Decanoate [Haldol Decanoate 100] 100 mg IM MONTHLY #1 ampul 08/22/18 Trazodone HCl 150 mg PO HS #30 tablet 11/05/19 Benztropine Mesylate [Cogentin -] 2 mg PO BID 04/05/20 Quetiapine Fumarate [Seroquel -] 100 mg PO HS 04/05/20 - Medication-Assisted Treatment (MAT) Medication-Assisted Treatment (MAT): No - Discharge Instructions Diet, activity, other medical instructions: Diet: reg as tolerated Activity: amb ad sherri Other medical instructions:f/u with pcp as recommended - Follow-up Referral Minutes to complete discharge: 35 - AMA Did Patient Leave Against Medical Advice: No
== END 2020-04-12 09:33 | disposition home or self-care (01) | DRG 895 ==
LOC: YASAS 08:48 → Y3W 11:23
PROVIDERS: ADMIT Allergy & Immunology; ATTEND Allergy & Immunology
PROC: HZ42ZZZ Group Counseling for Substance Abuse Treatment, Cognitive-Behavioral (ICD-10-PCS; principal; 2020-04-05)
DX: F10.20 Alcohol dependence, uncomplicated (principal); F14.20 Cocaine dependence, uncomplicated; F20.0 Paranoid schizophrenia; F17.210 Nicotine dependence, cigarettes, uncomplicated; R29.6 Repeated falls; Z56.0 Unemployment, unspecified
CPT/HCPCS: 36415; 80053; 81003; 85027; 85660; 86780; U0003

== ENCOUNTER 2021-01-15 09:50 | Inpatient (IN) | payer OTHER ==
[2021-01-15 10:29] VITALS: BMI 20.3
[2021-01-15] MEDS ORDERED: MAG HYDROX/AL HYDROX/SIMETH 30 ML UNIT-DOSE CUP PO PRN (12:14)
[2021-01-15] MEDS ORDERED: NICOTINE POLACRILEX 2 MG GUM BUC PRN (12:14)
[2021-01-15] MEDS ORDERED: ONDANSETRON *ODT* 4 MG TABLET SL PRN (12:14)
[2021-01-15] MEDS ORDERED: MENTHOL/PHENOL 1 EACH UD MM PRN (12:14)
[2021-01-15] MEDS ORDERED: LORazepam 1 MG TABLET PO PRN (12:14)
[2021-01-15] MEDS ORDERED: IBUPROFEN 400 MG TABLET (FP) PO PRN (12:14)
[2021-01-15] MEDS ORDERED: METHOCARBAMOL 500 MG TABLET PO PRN (12:14)
[2021-01-15] MEDS ORDERED: MAGNESIUM HYDROX 2400MG/30ML ORAL SUSPENSION 30 ML CUP PO PRN (12:14)
[2021-01-15] MEDS ORDERED: BISMUTH SUBSALICYLATE 524 MG/30 ML PO PRN (12:14)
[2021-01-15] MEDS ORDERED: ACETAMINOPHEN 325 MG TABLET (FP) PO PRN ×2 (12:14)
[2021-01-15] MEDS ORDERED: MAGNESIUM CITRATE 300 ML BOTTLE PO PRN (12:14)
[2021-01-15] MEDS ORDERED: BENZTROPINE MESYLATE 2 MG TABLET PO ONE (13:00)
[2021-01-15] MEDS: hydrOXYzine PAMOATE 25 MG CAPSULE (FP) PO SCH ×3 (14:19→22:26)
[2021-01-15] MEDS: PRENATAL VITAMINS W/ FOLIC ACID TABLET (FP) PO SCH (14:20)
[2021-01-15] MEDS: LORazepam 2 MG TABLET PO SCH ×2 (17:33→22:26)
[2021-01-15] MEDS ORDERED: QUEtiapine FUMARATE 100 MG TABLET (FP) PO ONE (22:00)
[2021-01-15] MEDS: THIAMINE HCL 100 MG TABLET (FP) PO SCH (22:26)
[2021-01-15] MEDS: MELATONIN 5 MG TABLETS PO SCH (22:27)
[2021-01-16] MEDS: hydrOXYzine PAMOATE 25 MG CAPSULE (FP) PO SCH ×5 (05:36→23:32)
[2021-01-16] MEDS: LORazepam 2 MG TABLET PO SCH ×3 (05:36→17:27)
[2021-01-16] MEDS: PRENATAL VITAMINS W/ FOLIC ACID TABLET (FP) PO SCH (10:16)
[2021-01-16 11:42] LABS: HEMATOCRIT 47.2 % (35.4-49); MCH 27.3 pg (25.7-33.7); MCHC 31.7 g/dl (32.0-35.9); MEAN PLT VOLUME 8.8 fl (7.5-11.1); PLATELET COUNT 179 10^3/uL (134-434); RBC 5.49 M/mm3 (4.00-5.60); RDW 14.8 % (11.9-15.9)
[2021-01-16 12:06] LABS: BLOOD UREA NITROGEN 8.8 mg/dL (7-18); CALCIUM 8.6 mg/dL (8.5-10.1)
[2021-01-16 12:10] LABS: CREATININE 0.9 mg/dL (0.55-1.3)
[2021-01-16 12:11] LABS: BILIRUBIN,TOTAL 0.4 mg/dL (0.2-1); TOT PROT 7.6 g/dl (6.4-8.2)
[2021-01-16] MEDS: THIAMINE HCL 100 MG TABLET (FP) PO SCH (21:45)
[2021-01-16] MEDS ORDERED: QUEtiapine FUMARATE 50 MG TABLET PO SCH (22:00)
[2021-01-16] MEDS ORDERED: BENZTROPINE MESYLATE 1 MG TABLET PO SCH (22:00)
[2021-01-16] MEDS: MELATONIN 5 MG TABLETS PO SCH (23:32)
[2021-01-17] MEDS: hydrOXYzine PAMOATE 25 MG CAPSULE (FP) PO SCH (08:23)
[2021-01-17] MEDS: PRENATAL VITAMINS W/ FOLIC ACID TABLET (FP) PO SCH (10:25)
[2021-01-17] MEDS: LORazepam 1 MG TABLET PO SCH ×3 (10:26→22:47)
[2021-01-17] MEDS: LACTULOSE 20 GM/30 ML UDC (FOR ORAL USE ONLY) PO SCH ×2 (14:15→21:06)
[2021-01-17] MEDS: THIAMINE HCL 100 MG TABLET (FP) PO SCH (21:06)
[2021-01-17] MEDS ORDERED: QUEtiapine FUMARATE 25 MG TABLET PO PRN (22:00)
[2021-01-17] MEDS: MELATONIN 5 MG TABLETS PO SCH (22:48)
[2021-01-18] MEDS ORDERED: LORazepam 0.5 MG TABLET PO PRN
[2021-01-18] MEDS: LACTULOSE 20 GM/30 ML UDC (FOR ORAL USE ONLY) PO SCH ×3 (06:19→22:33)
[2021-01-18] MEDS: LORazepam 0.5 MG TABLET PO SCH ×4 (06:19→22:34)
[2021-01-18] MEDS: PRENATAL VITAMINS W/ FOLIC ACID TABLET (FP) PO SCH (10:15)
[2021-01-18] MEDS: THIAMINE HCL 100 MG TABLET (FP) PO SCH (22:34)
[2021-01-18] MEDS: MELATONIN 5 MG TABLETS PO SCH (22:34)
[2021-01-19] MEDS ORDERED: LORazepam 0.5 MG TABLET PO ONE (05:00)
[2021-01-19] MEDS: LACTULOSE 20 GM/30 ML UDC (FOR ORAL USE ONLY) PO SCH (06:27)
[2021-01-19 08:54] VITALS: BP 127/66; PULSE 75; TEMP 97.8
== END 2021-01-19 09:09 | disposition home or self-care (01) | DRG 897 ==
LOC: YASAS 09:50 → Y6N 12:33
PROVIDERS: ADMIT Allergy & Immunology; ATTEND Allergy & Immunology
PROC: HZ2ZZZZ Detoxification Services for Substance Abuse Treatment (ICD-10-PCS; principal; 2021-01-15)
DX: F10.230 Alcohol dependence with withdrawal, uncomplicated (principal); F14.20 Cocaine dependence, uncomplicated; F20.0 Paranoid schizophrenia; E72.20 Disorder of urea cycle metabolism, unspecified; F12.20 Cannabis dependence, uncomplicated; F17.210 Nicotine dependence, cigarettes, uncomplicated
CPT/HCPCS: 36415; 80053; 82140; 85027; 86780; C9803; U0003; U0005

== ENCOUNTER 2021-10-04 12:49 | Inpatient (IN) | payer OTHER ==
[2021-10-04] MEDS ORDERED: MAGNESIUM HYDROX 2400MG/30ML ORAL SUSPENSION 30 ML CUP PO PRN (13:57)
[2021-10-04] MEDS ORDERED: chlordiazePOXIDE HCL 25 MG CAPSULE PO PRN (13:57)
[2021-10-04] MEDS ORDERED: MAGNESIUM CITRATE 300 ML BOTTLE PO PRN (13:57)
[2021-10-04] MEDS ORDERED: NICOTINE 10 MG CARTRIDGE (INHALER) IH PRN (13:57)
[2021-10-04] MEDS ORDERED: ACETAMINOPHEN 325 MG TABLET (FP) PO PRN ×2 (13:57)
[2021-10-04] MEDS ORDERED: MENTHOL/PHENOL 1 EACH UD MM PRN (13:57)
[2021-10-04] MEDS ORDERED: LOPERAMIDE HCL 2 MG CAPSULE PO PRN (13:57)
[2021-10-04] MEDS ORDERED: IBUPROFEN 400 MG TABLET (FP) PO PRN (13:57)
[2021-10-04] MEDS ORDERED: BISMUTH SUBSALICYLATE 524 MG/30 ML PO PRN (13:57)
[2021-10-04] MEDS ORDERED: DICYCLOMINE HCL 10 MG CAPSULE PO PRN (13:57)
[2021-10-04] MEDS ORDERED: ONDANSETRON *ODT* 4 MG TABLET SL PRN (13:57)
[2021-10-04] MEDS ORDERED: MAG HYDROX/AL HYDROX/SIMETH 30 ML UNIT-DOSE CUP PO PRN (13:57)
[2021-10-04] MEDS ORDERED: METHOCARBAMOL 500 MG TABLET PO PRN (13:57)
[2021-10-04 15:05] VITALS: BMI 19.1
[2021-10-04] MEDS ORDERED: LORazepam 1 MG TABLET PO PRN (15:50)
[2021-10-04] MEDS ORDERED: chlordiazePOXIDE HCL 25 MG CAPSULE PO SCH (17:00)
[2021-10-04] MEDS: hydrOXYzine PAMOATE 25 MG CAPSULE (FP) PO SCH ×3 (19:21→22:15)
[2021-10-04] MEDS: NICOTINE 21 MG/24 HOURS TOPICAL PATCH TD SCH (19:22)
[2021-10-04] MEDS: PRENATAL VITAMINS W/ FOLIC ACID TABLET (FP) PO SCH (19:22)
[2021-10-04] MEDS: LORazepam 2 MG TABLET PO SCH ×2 (19:22→22:15)
[2021-10-04] MEDS: THIAMINE HCL 100 MG TABLET (FP) PO SCH (22:15)
[2021-10-04] MEDS: MELATONIN 5 MG TABLETS PO SCH (22:15)
[2021-10-05] MEDS: LORazepam 2 MG TABLET PO SCH ×4 (06:32→22:23)
[2021-10-05] MEDS: hydrOXYzine PAMOATE 25 MG CAPSULE (FP) PO SCH ×5 (06:33→22:25)
[2021-10-05 10:02] LABS: HEMATOCRIT 38.6 % (35.4-49); HEMOGLOBIN 12.6 GM/dL (11.7-16.9); MCH 27.2 pg (25.7-33.7); MCHC 32.7 g/dl (32.0-35.9); MEAN CELL VOLUME 83.2 fl (80-96); MEAN PLT VOLUME 7.8 fl (7.5-11.1); PLATELET COUNT 182 10^3/uL (134-434); RBC 4.64 M/mm3 (4.00-5.60); WHITE BLOOD COUNT 4.4 K/mm3 (4.0-10.0)
[2021-10-05 10:08] LABS: CALCIUM 8.4 mg/dL (8.5-10.1)
[2021-10-05 10:09] LABS: ALBUMIN 3.6 g/dl (3.4-5.0); BLOOD UREA NITROGEN 15.4 mg/dL (7-18)
[2021-10-05 10:13] LABS: BILIRUBIN,TOTAL 0.6 mg/dL (0.2-1); TOT PROT 6.8 g/dl (6.4-8.2)
[2021-10-05] MEDS: PRENATAL VITAMINS W/ FOLIC ACID TABLET (FP) PO SCH (10:43)
[2021-10-05] MEDS: NICOTINE 21 MG/24 HOURS TOPICAL PATCH TD SCH (10:44)
[2021-10-05] MEDS: BENZTROPINE MESYLATE 1 MG TABLET PO SCH ×2 (12:25→22:22)
[2021-10-05] MEDS: QUEtiapine FUMARATE 100 MG TABLET (FP) PO SCH (22:23)
[2021-10-05] MEDS: THIAMINE HCL 100 MG TABLET (FP) PO SCH (22:23)
[2021-10-05] MEDS: MELATONIN 5 MG TABLETS PO SCH (22:25)
[2021-10-06] MEDS ORDERED: chlordiazePOXIDE HCL 25 MG CAPSULE PO SCH (05:00)
[2021-10-06] MEDS: hydrOXYzine PAMOATE 25 MG CAPSULE (FP) PO SCH ×5 (06:10→22:42)
[2021-10-06] MEDS: LORazepam 1 MG TABLET PO SCH ×4 (06:20→22:42)
[2021-10-06] MEDS: BENZTROPINE MESYLATE 1 MG TABLET PO SCH ×2 (10:59→22:40)
[2021-10-06] MEDS: PRENATAL VITAMINS W/ FOLIC ACID TABLET (FP) PO SCH (10:59)
[2021-10-06] MEDS: NICOTINE 21 MG/24 HOURS TOPICAL PATCH TD SCH (10:59)
[2021-10-06 16:08] LABS: SARS-CoV-2 NAA Not Detected (Not Detected)
[2021-10-06] MEDS: THIAMINE HCL 100 MG TABLET (FP) PO SCH (22:40)
[2021-10-06] MEDS: QUEtiapine FUMARATE 100 MG TABLET (FP) PO SCH (22:40)
[2021-10-06] MEDS: MELATONIN 5 MG TABLETS PO SCH (22:41)
[2021-10-07] MEDS ORDERED: LORazepam 0.5 MG TABLET PO PRN
[2021-10-07] MEDS ORDERED: chlordiazePOXIDE HCL 10 MG CAPSULE PO PRN
[2021-10-07] MEDS ORDERED: chlordiazePOXIDE HCL 10 MG CAPSULE PO SCH (05:00)
[2021-10-07] MEDS: LORazepam 0.5 MG TABLET PO SCH ×4 (05:35→22:39)
[2021-10-07] MEDS: hydrOXYzine PAMOATE 25 MG CAPSULE (FP) PO SCH ×5 (06:38→22:39)
[2021-10-07] MEDS: NICOTINE 21 MG/24 HOURS TOPICAL PATCH TD SCH (11:13)
[2021-10-07] MEDS: BENZTROPINE MESYLATE 1 MG TABLET PO SCH ×2 (11:13→22:38)
[2021-10-07] MEDS: PRENATAL VITAMINS W/ FOLIC ACID TABLET (FP) PO SCH (11:13)
[2021-10-07] MEDS: MELATONIN 5 MG TABLETS PO SCH (22:39)
[2021-10-07] MEDS: THIAMINE HCL 100 MG TABLET (FP) PO SCH (22:39)
[2021-10-07] MEDS: QUEtiapine FUMARATE 100 MG TABLET (FP) PO SCH (22:39)
[2021-10-08] MEDS ORDERED: LORazepam 0.5 MG TABLET PO ONE (05:00)
[2021-10-08] MEDS ORDERED: chlordiazePOXIDE HCL 10 MG CAPSULE PO SCH (05:00)
[2021-10-08] MEDS: hydrOXYzine PAMOATE 25 MG CAPSULE (FP) PO SCH ×2 (05:48→10:52)
[2021-10-08] MEDS: NICOTINE 21 MG/24 HOURS TOPICAL PATCH TD SCH (10:52)
[2021-10-08] MEDS: PRENATAL VITAMINS W/ FOLIC ACID TABLET (FP) PO SCH (10:52)
[2021-10-08] MEDS: BENZTROPINE MESYLATE 1 MG TABLET PO SCH (10:52)
[2021-10-08 13:46] VITALS: BP 119/65; PULSE 80; TEMP 97.7
[2021-10-09] MEDS ORDERED: chlordiazePOXIDE HCL 10 MG CAPSULE PO ONE (05:00)
== END 2021-10-08 13:11 | disposition other institution (70) | DRG 897 ==
LOC: YASAS 12:49 → Y6N 15:51
PROVIDERS: ADMIT Allergy & Immunology; ATTEND Allergy & Immunology
PROC: HZ2ZZZZ Detoxification Services for Substance Abuse Treatment (ICD-10-PCS; principal; 2021-10-04)
DX: F10.230 Alcohol dependence with withdrawal, uncomplicated (principal); F14.20 Cocaine dependence, uncomplicated; F20.0 Paranoid schizophrenia; Z68.1 Body mass index [BMI] 19.9 or less, adult; F17.210 Nicotine dependence, cigarettes, uncomplicated; R63.4 Abnormal weight loss
CPT/HCPCS: 36415; 80053; 85027; 86780; C9803-CS; U0003; U0005

== ENCOUNTER 2021-10-08 12:36 | Inpatient (IN) | payer OTHER ==
[2021-10-08] MEDS ORDERED: MAGNESIUM CITRATE 300 ML BOTTLE PO PRN (14:25)
[2021-10-08] MEDS ORDERED: guaiFENesin 200 MG/10 ML 10 ML UNIT-DOSE CUPS PO PRN (14:25)
[2021-10-08] MEDS ORDERED: MAGNESIUM HYDROX 2400MG/30ML ORAL SUSPENSION 30 ML CUP PO PRN (14:25)
[2021-10-08] MEDS ORDERED: IBUPROFEN 400 MG TABLET (FP) PO PRN (14:25)
[2021-10-08] MEDS ORDERED: LOPERAMIDE HCL 2 MG CAPSULE PO PRN (14:25)
[2021-10-08] MEDS ORDERED: ACETAMINOPHEN 325 MG TABLET (FP) PO PRN (14:25)
[2021-10-08] MEDS ORDERED: MAG HYDROX/AL HYDROX/SIMETH 30 ML UNIT-DOSE CUP PO PRN (14:25)
[2021-10-08] MEDS ORDERED: P-EPHED 60MG/TRIPROLIDI 2.5MG TABLET PO PRN (14:25)
[2021-10-08] MEDS: hydrOXYzine PAMOATE 25 MG CAPSULE (FP) PO SCH ×2 (17:55→21:05)
[2021-10-08] MEDS: THIAMINE HCL 100 MG TABLET (FP) PO SCH (21:04)
[2021-10-08] MEDS: MELATONIN 5 MG TABLETS PO SCH (21:04)
[2021-10-09] MEDS: hydrOXYzine PAMOATE 25 MG CAPSULE (FP) PO SCH ×5 (06:36→21:28)
[2021-10-09] MEDS: PRENATAL VITAMINS W/ FOLIC ACID TABLET (FP) PO SCH (09:58)
[2021-10-09] MEDS: NICOTINE 7 MG/24 HOURS TOPICAL PATCH TD SCH (09:58)
[2021-10-09] MEDS: BENZTROPINE MESYLATE 1 MG TABLET PO SCH ×2 (11:21→21:27)
[2021-10-09 12:58] LABS: URINE APPEARANCE CLEAR; URINE BILIRUBIN NEGATIVE (NEGATIVE); URINE COLOR YELLOW; URINE GLUCOSE (UA) NEGATIVE (NEGATIVE); URINE KETONE NEGATIVE (NEGATIVE); URINE LEUK ESTERASE NEGATIVE (NEGATIVE); URINE NITRITE NEGATIVE (NEGATIVE); URINE PROTEIN NEGATIVE (NEGATIVE); URINE UROBILINOGEN 0.2 mg/dL (0.2-1.0)
[2021-10-09] MEDS: QUEtiapine FUMARATE 100 MG TABLET (FP) PO SCH (21:27)
[2021-10-09] MEDS: THIAMINE HCL 100 MG TABLET (FP) PO SCH (21:27)
[2021-10-09] MEDS: MELATONIN 5 MG TABLETS PO SCH (21:28)
[2021-10-09] MEDS ORDERED: BENZTROPINE MESYLATE 1 MG TABLET PO SCH (22:00)
[2021-10-10] MEDS: hydrOXYzine PAMOATE 25 MG CAPSULE (FP) PO SCH ×3 (06:41→13:48)
[2021-10-10] MEDS: NICOTINE 7 MG/24 HOURS TOPICAL PATCH TD SCH (09:34)
[2021-10-10] MEDS: BENZTROPINE MESYLATE 1 MG TABLET PO SCH ×2 (09:34→21:34)
[2021-10-10] MEDS: PRENATAL VITAMINS W/ FOLIC ACID TABLET (FP) PO SCH (09:34)
[2021-10-10] MEDS ORDERED: BENZTROPINE MESYLATE 1 MG TABLET PO ONE (11:00)
[2021-10-10] MEDS ORDERED: hydrOXYzine PAMOATE 25 MG CAPSULE (FP) PO PRN (14:11)
[2021-10-10] MEDS ORDERED: HALOPERIDOL DECANOATE 500 MG/5ML MDV IM ONE ×2 (15:30)
[2021-10-10] MEDS: QUEtiapine FUMARATE 100 MG TABLET (FP) PO SCH (21:34)
[2021-10-10] MEDS: THIAMINE HCL 100 MG TABLET (FP) PO SCH (21:34)
[2021-10-10] MEDS: MELATONIN 5 MG TABLETS PO SCH (21:34)
[2021-10-11] MEDS: PRENATAL VITAMINS W/ FOLIC ACID TABLET (FP) PO SCH (10:16)
[2021-10-11] MEDS: BENZTROPINE MESYLATE 1 MG TABLET PO SCH ×2 (10:16→21:23)
[2021-10-11] MEDS: NICOTINE 7 MG/24 HOURS TOPICAL PATCH TD SCH (10:16)
[2021-10-11] MEDS: THIAMINE HCL 100 MG TABLET (FP) PO SCH (21:22)
[2021-10-11] MEDS: MELATONIN 5 MG TABLETS PO SCH (21:22)
[2021-10-11] MEDS: QUEtiapine FUMARATE 100 MG TABLET (FP) PO SCH (21:23)
[2021-10-12 06:07] LABS: SARS-CoV-2 NAA Not Detected (Not Detected)
[2021-10-12] MEDS: NICOTINE 10 MG CARTRIDGE (INHALER) IH PRN (06:43)
[2021-10-12] MEDS: NICOTINE 7 MG/24 HOURS TOPICAL PATCH TD SCH (09:55)
[2021-10-12] MEDS: BENZTROPINE MESYLATE 1 MG TABLET PO SCH ×2 (09:55→21:08)
[2021-10-12] MEDS: PRENATAL VITAMINS W/ FOLIC ACID TABLET (FP) PO SCH (09:55)
[2021-10-12] MEDS: MELATONIN 5 MG TABLETS PO SCH (21:07)
[2021-10-12] MEDS: THIAMINE HCL 100 MG TABLET (FP) PO SCH (21:07)
[2021-10-12] MEDS: QUEtiapine FUMARATE 100 MG TABLET (FP) PO SCH (21:08)
[2021-10-13] MEDS: PRENATAL VITAMINS W/ FOLIC ACID TABLET (FP) PO SCH (09:53)
[2021-10-13] MEDS: BENZTROPINE MESYLATE 1 MG TABLET PO SCH ×2 (09:53→21:30)
[2021-10-13] MEDS: NICOTINE 10 MG CARTRIDGE (INHALER) IH PRN (09:54)
[2021-10-13] MEDS: NICOTINE 7 MG/24 HOURS TOPICAL PATCH TD SCH (09:54)
[2021-10-13] MEDS: QUEtiapine FUMARATE 100 MG TABLET (FP) PO SCH (21:30)
[2021-10-13] MEDS: THIAMINE HCL 100 MG TABLET (FP) PO SCH (21:30)
[2021-10-13] MEDS: MELATONIN 5 MG TABLETS PO SCH (21:30)
[2021-10-14] MEDS: BENZTROPINE MESYLATE 1 MG TABLET PO SCH ×2 (10:47→21:33)
[2021-10-14] MEDS: PRENATAL VITAMINS W/ FOLIC ACID TABLET (FP) PO SCH (10:47)
[2021-10-14] MEDS: NICOTINE 7 MG/24 HOURS TOPICAL PATCH TD SCH (10:48)
[2021-10-14] MEDS: QUEtiapine FUMARATE 100 MG TABLET (FP) PO SCH (21:33)
[2021-10-14] MEDS: MELATONIN 5 MG TABLETS PO SCH (21:33)
[2021-10-14] MEDS: THIAMINE HCL 100 MG TABLET (FP) PO SCH (21:33)
[2021-10-15] MEDS: BENZTROPINE MESYLATE 1 MG TABLET PO SCH ×2 (10:23→21:22)
[2021-10-15] MEDS: PRENATAL VITAMINS W/ FOLIC ACID TABLET (FP) PO SCH (10:23)
[2021-10-15] MEDS: NICOTINE 7 MG/24 HOURS TOPICAL PATCH TD SCH (10:24)
[2021-10-15] MEDS: THIAMINE HCL 100 MG TABLET (FP) PO SCH (21:22)
[2021-10-15] MEDS: QUEtiapine FUMARATE 100 MG TABLET (FP) PO SCH (21:22)
[2021-10-15] MEDS: MELATONIN 5 MG TABLETS PO SCH (21:22)
[2021-10-16] MEDS: BENZTROPINE MESYLATE 1 MG TABLET PO SCH ×2 (09:11→21:48)
[2021-10-16] MEDS: NICOTINE 10 MG CARTRIDGE (INHALER) IH PRN (09:12)
[2021-10-16] MEDS: NICOTINE 7 MG/24 HOURS TOPICAL PATCH TD SCH (09:12)
[2021-10-16] MEDS: PRENATAL VITAMINS W/ FOLIC ACID TABLET (FP) PO SCH (09:12)
[2021-10-16] MEDS: QUEtiapine FUMARATE 100 MG TABLET (FP) PO SCH (21:48)
[2021-10-16] MEDS: THIAMINE HCL 100 MG TABLET (FP) PO SCH (21:49)
[2021-10-16] MEDS: MELATONIN 5 MG TABLETS PO SCH (21:49)
[2021-10-17] MEDS: NICOTINE 7 MG/24 HOURS TOPICAL PATCH TD SCH (09:51)
[2021-10-17] MEDS: PRENATAL VITAMINS W/ FOLIC ACID TABLET (FP) PO SCH (09:51)
[2021-10-17] MEDS: BENZTROPINE MESYLATE 1 MG TABLET PO SCH ×2 (09:51→21:33)
[2021-10-17] MEDS: THIAMINE HCL 100 MG TABLET (FP) PO SCH (21:33)
[2021-10-17] MEDS: QUEtiapine FUMARATE 100 MG TABLET (FP) PO SCH (21:33)
[2021-10-17] MEDS: MELATONIN 5 MG TABLETS PO SCH (21:33)
[2021-10-17] MEDS: NICOTINE 10 MG CARTRIDGE (INHALER) IH PRN (21:34)
[2021-10-18] MEDS: PRENATAL VITAMINS W/ FOLIC ACID TABLET (FP) PO SCH (09:22)
[2021-10-18] MEDS: NICOTINE 7 MG/24 HOURS TOPICAL PATCH TD SCH (09:22)
[2021-10-18] MEDS: BENZTROPINE MESYLATE 1 MG TABLET PO SCH ×2 (09:22→21:45)
[2021-10-18] MEDS: THIAMINE HCL 100 MG TABLET (FP) PO SCH (21:45)
[2021-10-18] MEDS: MELATONIN 5 MG TABLETS PO SCH (21:45)
[2021-10-18] MEDS: QUEtiapine FUMARATE 100 MG TABLET (FP) PO SCH (21:46)
[2021-10-19] MEDS ORDERED: LACTULOSE 20 GM/30 ML UDC (FOR ORAL USE ONLY) PO SCH (10:00)
[2021-10-19] MEDS: PRENATAL VITAMINS W/ FOLIC ACID TABLET (FP) PO SCH (10:09)
[2021-10-19] MEDS: BENZTROPINE MESYLATE 1 MG TABLET PO SCH ×2 (10:09→21:24)
[2021-10-19] MEDS: NICOTINE 7 MG/24 HOURS TOPICAL PATCH TD SCH (10:10)
[2021-10-19] MEDS: MELATONIN 5 MG TABLETS PO SCH (21:23)
[2021-10-19] MEDS: THIAMINE HCL 100 MG TABLET (FP) PO SCH (21:23)
[2021-10-19] MEDS: QUEtiapine FUMARATE 100 MG TABLET (FP) PO SCH (21:24)
[2021-10-20] MEDS: PRENATAL VITAMINS W/ FOLIC ACID TABLET (FP) PO SCH (09:36)
[2021-10-20] MEDS: NICOTINE 7 MG/24 HOURS TOPICAL PATCH TD SCH (09:36)
[2021-10-20] MEDS: BENZTROPINE MESYLATE 1 MG TABLET PO SCH ×2 (09:36→21:07)
[2021-10-20] MEDS ORDERED: LACTULOSE 20 GM/30 ML UDC (FOR ORAL USE ONLY) PO PRN (13:06)
[2021-10-20] MEDS: MELATONIN 5 MG TABLETS PO SCH (21:07)
[2021-10-20] MEDS: THIAMINE HCL 100 MG TABLET (FP) PO SCH (21:07)
[2021-10-20] MEDS: QUEtiapine FUMARATE 100 MG TABLET (FP) PO SCH (21:07)
[2021-10-21 06:58] VITALS: BP 123/84; PULSE 95; TEMP 96.7
[2021-10-21] MEDS: BENZTROPINE MESYLATE 1 MG TABLET PO SCH (09:24)
[2021-10-21] MEDS: NICOTINE 7 MG/24 HOURS TOPICAL PATCH TD SCH (09:25)
[2021-10-21] MEDS: PRENATAL VITAMINS W/ FOLIC ACID TABLET (FP) PO SCH (09:25)
== END 2021-10-21 09:40 | disposition home or self-care (01) | DRG 895 ==
LOC: YASAS 12:36 → Y3E 12:38
PROVIDERS: ADMIT Allergy & Immunology; ATTEND Allergy & Immunology
PROC: HZ42ZZZ Group Counseling for Substance Abuse Treatment, Cognitive-Behavioral (ICD-10-PCS; principal; 2021-10-08)
DX: F10.20 Alcohol dependence, uncomplicated (principal); F14.20 Cocaine dependence, uncomplicated; F20.0 Paranoid schizophrenia; F12.20 Cannabis dependence, uncomplicated; F17.210 Nicotine dependence, cigarettes, uncomplicated; R79.89 Other specified abnormal findings of blood chemistry
CPT/HCPCS: 36415; 81003; 82140; 86803; C9803-CS; U0003; U0005